=== PATIENT | male | born 2000 | race Caucasian/White ===

== ENCOUNTER 2018-12-31 11:11 | Inpatient (IN) | payer OTHER ==
[2018-12-31 13:38] VITALS: BMI 24.0
--- NOTE | 2018-12-31 14:09 | HP ---
COWS - Scale Resting Pulse: 0= [place] 80 or Below Sweatin= Chills/Flushing Restless Observation: 3= Extraneous Movement Pupil Size: 1= Pupils >than Normal Bone or Joint Aches: 2= Severe Diffuse Aches Runny Nose/ Eye Tearin= Runny Nose/Eyes GI Upset > 30mins: 2= Nausea/Diarrhea Tremor Observation: 2= Slight Tremor Visible Yawning Observation: 2= >3x During Session Anxiety or Irritability: 2=Irritable/Anxious Goose Flesh Skin: 0=Smooth Skin COWS Score: 17 CIWA Score Nausea/Vomitin Muscle Tremors: 2 Anxiety: 2 Agitation: 2 Paroxysmal Sweats: 1-Minimal Palms Moist Orientation: 0-Oriented Tacttile Disturbances: 1-Very Mild Itch/Numbness Auditory Disturbances: 1-Very Mild Visual Disturbances: 0-None Headache: 2-Mild CIWA-Ar Total Score: 13 - Admission Criteria [facility] Guidelines: Admission for Medically Managed Detox: Requires at least one of the followin. CIWA greater than 12 2. Seizures within the past 24 hours 3. Delirium tremens within the past 24 hours 4. Hallucinations within the past 24 hours 5. Acute intervention needed for co occurring medical disorder 6. Acute intervention needed for co occurring psychiatric disorder 7. Severe withdrawal that cannot be handled at a lower level of care (continued vomiting, continued diarrhea, abnormal vital signs) requiring intravenous medication and/or fluids 8. Admission ROS S - [facility] Chief Complaint: i need help to stop using heroin,percocet,alcohol,cocaine,marijuana Allergies/Adverse Reactions: Allergies Allergy/AdvReac Type Severity Reaction Status Date / Time No Known Allergies Allergy Verified 12/31/18 13:32 History of Present Illness: this 18 years old male with heroin,percocet,alcohol ,cocaine and marijuana dependence seeking detox, last detox [facility] 11/26 no significant period of sobriety plan for rehab this is the first admission to this facility weight loss Exam Limitations: No Limitations - Ebola screening Have you traveled outside of the country in the last 21 days: No Have you had contact with anyone from an Ebola affected area: No - Review of Systems Constitutional: Chills, Loss of Appetite, Malaise, Night Sweats, Changes in sleep, Weakness, Unintentional Wgt. Loss EENT: reports: Tearing, Nose Congestion Respiratory: reports: No Symptoms reported Cardiac: reports: No Symptoms Reported GI: reports: Diarrhea, Nausea, Vomiting, Abdominal cramping : reports: No Symptoms Reported Musculoskeletal: reports: Back Pain, Joint Pain, Muscle Pain, Joint Stiffness Integumentary: reports: Dryness Neuro: reports: Headache, Tremors Endocrine: reports: No Symptoms Reported Hematology: reports: No Symptoms Reported Psychiatric: reports: No Sypmtoms Reported, Judgement Intact, Mood/Affect Appropiate, Orientated x3, other Other Systems: Reviewed and Negative Patient History - Patient Medical History Hx Anemia: No Hx Asthma: No Hx Chronic Obstructive Pulmonary Disease (COPD): No Hx Cancer: No Hx Cardiac Disorders: No Hx Congestive Heart Failure: No Hx Hypertension: No Hx Hypercholesterolemia: No Hx Pacemaker: No HX Cerebrovascular Accident: No Hx Seizures: No Hx Dementia: No Hx Diabetes: No Hx Gastrointestinal Disorders: No Hx Liver Disease: No Hx Genitourinary Disorders: No Hx Sexually Transmitted Disorders: No Hx Renal Disease (ESRD): No Hx Thyroid Disease: No Hx Human Immunodeficiency Virus (HIV): No (last hiv 11/26 negative) Hx Hepatitis C: No Hx Depression: No Hx Suicide Attempt: No Hx Bipolar Disorder: No Hx Schizophrenia: No Other Medical History: no suicidal,no homicidal - Patient Surgical History Past Surgical History: Yes Other Surgical History: tosllectomy at age of 3 years - PPD History Previous Implant?: Yes Documented Results: Negative w/o proof Implanted On Prior [facility] Admission?: No PPD to be Administered?: Yes - Smoking Cessation Smoking history: Never smoked Have you smoked in the past 12 months: No Hx Chewing Tobacco Use: No - Substance & Tx. History Hx Alcohol Use: Yes Hx Substance Use: Yes Substance Use Type: Alcohol, Cocaine, Heroin, Marijuana Hx Substance Use Treatment: Yes ([facility] 11/26) - Substances abused Heroin Substance route: Injection Frequency: Daily Amount used: 1 bundle Age of first use: 17 Date of last use: 12/30/18 Other Other (specify): Percocet Substance route: Oral Frequency: Daily Amount used: 7 pills ( 10mg ) Age of first use: 15 Date of last use: 12/30/18 Alcohol Substance route: Oral Frequency: Daily Amount used: 1pint of janna/6 packs of 12 ozs of beer Age of first use: 10 Date of last use: 12/30/18 Cocaine Substance route: Injection Frequency: 1-3 times last 30 days Amount used: 100$ Age of first use: 15 Date of last use: 12/24/18 Marijuana/Hashish Substance route: Smoking Frequency: Daily Amount used: 20$ Age of first use: 11 Date of last use: 12/31/18 Family Disease History - Family Disease History Family Disease History: Heart Disease: Grandparent, Other: Father (anxiety,panic , alcohol) Admission Physical Exam [facility] - Vital Signs Vital Signs: Vital Signs - 24 hr 12/31/18 12/31/18 13:33 13:56 Temperature 98 F 98 F Pulse Rate 68 68 Respiratory 18 18 Rate Blood Pressure 82/56 L 82/56 L - Physical General Appearance: Yes: Moderate Distress, Tremorous, Irritable, Sweating, Anxious HEENTM: Yes: Normal ENT Inspection, LISA, Pharynx Normal Respiratory: Yes: Lungs Clear, Normal Breath Sounds, No Respiratory Distress Neck: Yes: Within Normal Limits, Supple, Trachea in good position Breast: Yes: Within Normal Limits Cardiology: Yes: Within Normal Limits, Regular Rhythm, Regular Rate, S1, S2 Abdominal: Yes: Within Normal Limits, Normal Bowel Sounds, Non Tender, Flat, Soft Genitourinary: Yes: Within Normal Limits Back: Yes: Muscle Spasm Musculoskeletal: Yes: full range of Motion, Back pain, Joint Stiffness, Muscle Pain Extremities: Yes: Within Normal Limits, Normal Range of Motion, Tremors Neurological: Yes: world designer II-XII NML intact, Alert, Motor Strength 5/5 Integumentary: Yes: Dry Lymphatic: Yes: Within Normal Limits - Diagnostic (1) Opioid dependence with withdrawal Current Visit: Yes Status: Acute (2) Alcohol dependence with uncomplicated withdrawal Current Visit: Yes Status: Acute (3) Cocaine dependence Current Visit: Yes Status: Acute (4) Cannabis abuse Current Visit: Yes Status: Acute (5) IVDU (intravenous drug user) Current Visit: Yes Status: Acute (6) Dehydration Current Visit: Yes Status: Acute (7) Weight loss Current Visit: Yes Status: Acute (8) Nicotine dependence Current Visit: Yes Status: Acute Cleared for Admission [facility] - Detox or Rehab [facility] Level of Care: Medically Managed Detox Regimen/Protocol: Methadone/Librium Breathalyzer - Breathalyzer Breathalyzer: 0 Urine Drug Screen - Test Device Lot number: [id number] Expiration date: 08/09/20 - Control Is test valid?: Yes - Results Drug screen NEGATIVE: No Urine drug screen results: THC-Marijuana, CHU-Cocaine, MOP-Opiates, OXY- Oxycodone, BZO-Benzodiazepines, BUP-Suboxone Inpatient Rehab Admission - Rehab Decision to Admit Inpatient rehab admission?: No
[2018-12-31] MEDS ORDERED: MENTHOL/PHENOL 1 EACH UD MM PRN (14:22)
[2018-12-31] MEDS ORDERED: MAGNESIUM HYDROX 2400MG/30ML ORAL SUSPENSION 30 ML CUP PO PRN (14:22)
[2018-12-31] MEDS ORDERED: IBUPROFEN 400 MG TABLET (FP) PO PRN (14:22)
[2018-12-31] MEDS ORDERED: ACETAMINOPHEN 325 MG TABLET (FP) PO PRN ×2 (14:22)
[2018-12-31] MEDS ORDERED: MAG HYDROX/AL HYDROX/SIMETH 30 ML UNIT-DOSE CUP PO PRN (14:22)
[2018-12-31] MEDS ORDERED: BISMUTH SUBSALICYLATE 262 MG/15 ML BTL PO PRN (14:22)
[2018-12-31] MEDS ORDERED: cloNIDine HCL 0.1 MG TABLET PO PRN (14:22)
[2018-12-31] MEDS ORDERED: MAGNESIUM CITRATE 300 ML BOTTLE PO PRN (14:22)
[2018-12-31] MEDS ORDERED: METHADONE HCL 10 MG TABLET (FOR DETOX USE ONLY) PO ONE ×2 (15:20→23:00)
[2018-12-31] MEDS: hydrOXYzine PAMOATE 25 MG CAPSULE (FP) PO PRN (15:32)
[2018-12-31] MEDS: NICOTINE 21 MG/24 HOURS TOPICAL PATCH TD SCH (15:33)
[2018-12-31] MEDS: THIAMINE HCL 100 MG TABLET (FP) PO SCH (21:59)
[2018-12-31 23:36] LABS: HEMATOCRIT 39.3 % (35.4-49); HEMOGLOBIN 13.3 GM/dL (11.7-16.9); MCH 27.3 pg (25.7-33.7); MCHC 33.8 g/dl (32.0-35.9); MEAN CELL VOLUME 80.8 fl (80-96); MEAN PLT VOLUME 9.9 fl (7.5-11.1); PLATELET COUNT 168 K/MM3 (134-434); RBC 4.87 M/mm3 (4.00-5.60); RDW 14.6 % (11.9-15.9); WHITE BLOOD COUNT 4.8 K/mm3 (4.0-10.0)
[2019-01-01 00:06] LABS: ALBUMIN 3.8 g/dl (3.4-5.0); ALK PHOS 85 U/L (45-117); ANION GAP 3 MMOL/L (8-16); BILIRUBIN,TOTAL 0.3 mg/dL (0.2-1); BLOOD UREA NITROGEN 16 mg/dL (7-18); CALCIUM 8.9 mg/dL (8.5-10.1); CHLORIDE 102 mmol/L (98-107); CO2 30 mmol/L (21-32); CREATININE 0.9 mg/dL (0.55-1.3); GLUCOSE,RANDOM 77 mg/dL (74-106); POTASSIUM 4.1 mmol/L (3.5-5.1); SGOT/AST 19 U/L (15-37); SGPT/ALT 20 U/L (13-61); SODIUM 135 mmol/L (136-145); TOT PROT 7.2 g/dl (6.4-8.2)
[2019-01-01] MEDS ORDERED: METHADONE HCL 10 MG TABLET (FOR DETOX USE ONLY) PO ONE (10:00)
[2019-01-01] MEDS: NICOTINE 21 MG/24 HOURS TOPICAL PATCH TD SCH (10:19)
[2019-01-01] MEDS: PRENATAL VITAMINS W/ FOLIC ACID TABLET (FP) PO SCH (10:19)
--- NOTE | 2019-01-01 10:31 | EKG ---
Test Reason : Blood Pressure : / mmHG Vent. Rate : 056 BPM Atrial Rate : 056 BPM P-R Int : 132 ms QRS Dur : 090 ms QT Int : 450 ms P-R-T Axes : 052 071 038 degrees QTc Int : 434 ms SINUS BRADYCARDIA WITH SINUS ARRHYTHMIA OTHERWISE NORMAL ECG NO PREVIOUS ECGS AVAILABLE Confirmed by MARTINE ASCENCIO, LUIS ([id number]) on 01/01/2019 10:31:26 AM Referred By: Confirmed By:LUIS FARLEY MD
--- NOTE | 2019-01-01 10:38 | PN ---
BHS COWS - Scale Resting Pulse: 0= [place] 80 or Below Sweatin= Chills/Flushing Restless Observation: 1= Difficult to Sit Still Pupil Size: 1= Pupils >than Normal Bone or Joint Aches: 2= Severe Diffuse Aches Runny Nose/ Eye Tearin= Nasal Congestion GI Upset > 30mins: 1= Stomach Cramp Tremor Observation of Outstretched Hands: 2= Slight Tremor Visible Yawning Observation: 1= 1-2x During Session Anxiety or Irritability: 2=Irritable/Anxious Goose Flesh Skin: 0=Smooth Skin COWS Score: 12 BHS Progress Note (SOAP) Subjective: patient using IV heroin acknowledge clean needle no sharing Objective: 01/01/19 10:37 Vital Signs Temperature 96.4 F L 01/01/19 09:30 Pulse Rate 56 L 01/01/19 09:30 Respiratory Rate 18 01/01/19 09:30 Blood Pressure 110/70 01/01/19 09:30 O2 Sat by Pulse Oximetry (%) Laboratory Last Values WBC 4.8 K/mm3 (4.0-10.0) 12/31/18 14:30 RBC 4.87 M/mm3 (4.00-5.60) 12/31/18 14:30 Hgb 13.3 GM/dL (11.7-16.9) 12/31/18 14:30 Hct 39.3 % (35.4-49) 12/31/18 14:30 MCV 80.8 fl (80-96) 12/31/18 14:30 MCH 27.3 pg (25.7-33.7) 12/31/18 14:30 MCHC 33.8 g/dl (32.0-35.9) 12/31/18 14:30 RDW 14.6 % (11.9-15.9) 12/31/18 14:30 Plt Count 168 K/MM3 (134-434) 12/31/18 14:30 MPV 9.9 fl (7.5-11.1) 12/31/18 14:30 Sickle Cell Screen Negative (NEGATIVE) 12/31/18 14:30 Sodium 135 mmol/L (136-145) L 12/31/18 14:30 Potassium 4.1 mmol/L (3.5-5.1) 12/31/18 14:30 Chloride 102 mmol/L (98-107) 12/31/18 14:30 Carbon Dioxide 30 mmol/L (21-32) 12/31/18 14:30 Anion Gap 3 MMOL/L (8-16) L 12/31/18 14:30 BUN 16 mg/dL (7-18) 12/31/18 14:30 Creatinine 0.9 mg/dL (0.55-1.3) 12/31/18 14:30 Creat Clearance w eGFR 107.58 (>60) 12/31/18 14:30 Random Glucose 77 mg/dL (74-106) 12/31/18 14:30 Calcium 8.9 mg/dL (8.5-10.1) 12/31/18 14:30 Total Bilirubin 0.3 mg/dL (0.2-1) 12/31/18 14:30 AST 19 U/L (15-37) 12/31/18 14:30 ALT 20 U/L (13-61) 12/31/18 14:30 Alkaline Phosphatase 85 U/L (45-117) 12/31/18 14:30 Total Protein 7.2 g/dl (6.4-8.2) 12/31/18 14:30 Albumin 3.8 g/dl (3.4-5.0) 12/31/18 14:30 lab noted Assessment: 01/01/19 10:37 opiate withdrawal sx Plan: continue detox
[2019-01-01] MEDS: NICOTINE POLACRILEX 2 MG GUM BUC PRN (12:50)
[2019-01-01 14:59] LABS: URINE APPEARANCE CLEAR; URINE BILIRUBIN NEGATIVE (NEGATIVE); URINE COLOR YELLOW; URINE GLUCOSE (UA) NEGATIVE (NEGATIVE); URINE KETONE NEGATIVE (NEGATIVE); URINE LEUK ESTERASE NEGATIVE (NEGATIVE); URINE NITRITE NEGATIVE (NEGATIVE); URINE PROTEIN NEGATIVE (NEGATIVE); URINE UROBILINOGEN 0.2 mg/dL (0.2-1.0)
[2019-01-01] MEDS: hydrOXYzine PAMOATE 25 MG CAPSULE (FP) PO PRN (17:23)
[2019-01-01] MEDS: THIAMINE HCL 100 MG TABLET (FP) PO SCH (22:06)
[2019-01-01] MEDS: MELATONIN 5 MG TABLETS PO PRN (22:07)
[2019-01-02] MEDS ORDERED: METHADONE HCL 10 MG TABLET (FOR DETOX USE ONLY) PO ONE (10:00)
[2019-01-02] MEDS: NICOTINE 21 MG/24 HOURS TOPICAL PATCH TD SCH (10:26)
[2019-01-02] MEDS: PRENATAL VITAMINS W/ FOLIC ACID TABLET (FP) PO SCH (10:27)
[2019-01-02] MEDS: METHOCARBAMOL 500 MG TABLET PO PRN (10:53)
[2019-01-02] MEDS: diazePAM 5 MG TABLET PO PRN ×2 (11:24→19:04)
--- NOTE | 2019-01-02 13:55 | PN ---
BHS COWS - Scale Resting Pulse: 0= [place] 80 or Below Sweatin= Chills/Flushing Restless Observation: 0= Sits Still Pupil Size: 0= Normal to Room Light Bone or Joint Aches: 1= Mild Discomfort Runny Nose/ Eye Tearin= Nasal Congestion GI Upset > 30mins: 1= Stomach Cramp Tremor Observation of Outstretched Hands: 2= Slight Tremor Visible Yawning Observation: 2= >3x During Session Anxiety or Irritability: 2=Irritable/Anxious Goose Flesh Skin: 0=Smooth Skin COWS Score: 10 S Progress Note (SOAP) Subjective: anxiousness wants valium as prn for methadone detox regimen discontinue clonidine prn begin valium prn Objective: 01/02/19 13:59 Vital Signs Temperature 97.6 F 01/02/19 09:53 Pulse Rate 66 01/02/19 09:53 Respiratory Rate 18 01/02/19 09:53 Blood Pressure 100/62 01/02/19 09:53 O2 Sat by Pulse Oximetry (%) Laboratory Last Values WBC 4.8 K/mm3 (4.0-10.0) 12/31/18 14:30 RBC 4.87 M/mm3 (4.00-5.60) 12/31/18 14:30 Hgb 13.3 GM/dL (11.7-16.9) 12/31/18 14:30 Hct 39.3 % (35.4-49) 12/31/18 14:30 MCV 80.8 fl (80-96) 12/31/18 14:30 MCH 27.3 pg (25.7-33.7) 12/31/18 14:30 MCHC 33.8 g/dl (32.0-35.9) 12/31/18 14:30 RDW 14.6 % (11.9-15.9) 12/31/18 14:30 Plt Count 168 K/MM3 (134-434) 12/31/18 14:30 MPV 9.9 fl (7.5-11.1) 12/31/18 14:30 Sickle Cell Screen Negative (NEGATIVE) 12/31/18 14:30 Sodium 135 mmol/L (136-145) L 12/31/18 14:30 Potassium 4.1 mmol/L (3.5-5.1) 12/31/18 14:30 Chloride 102 mmol/L (98-107) 12/31/18 14:30 Carbon Dioxide 30 mmol/L (21-32) 12/31/18 14:30 Anion Gap 3 MMOL/L (8-16) L 12/31/18 14:30 BUN 16 mg/dL (7-18) 12/31/18 14:30 Creatinine 0.9 mg/dL (0.55-1.3) 12/31/18 14:30 Creat Clearance w eGFR 107.58 (>60) 12/31/18 14:30 Random Glucose 77 mg/dL (74-106) 12/31/18 14:30 Calcium 8.9 mg/dL (8.5-10.1) 12/31/18 14:30 Total Bilirubin 0.3 mg/dL (0.2-1) 12/31/18 14:30 AST 19 U/L (15-37) 12/31/18 14:30 ALT 20 U/L (13-61) 12/31/18 14:30 Alkaline Phosphatase 85 U/L (45-117) 12/31/18 14:30 Total Protein 7.2 g/dl (6.4-8.2) 12/31/18 14:30 Albumin 3.8 g/dl (3.4-5.0) 12/31/18 14:30 Urine Color Yellow 01/01/19 12:00 Urine Appearance Clear 01/01/19 12:00 Urine pH 7.0 (5.0-8.0) 01/01/19 12:00 Ur Specific [place] 1.016 (1.010-1.035) 01/01/19 12:00 Urine Protein Negative (NEGATIVE) 01/01/19 12:00 Urine Glucose (UA) Negative (NEGATIVE) 01/01/19 12:00 Urine Ketones Negative (NEGATIVE) 01/01/19 12:00 Urine Blood Negative (NEGATIVE) 01/01/19 12:00 Urine Nitrite Negative (NEGATIVE) 01/01/19 12:00 Urine Bilirubin Negative (NEGATIVE) 01/01/19 12:00 Urine Urobilinogen 0.2 mg/dL (0.2-1.0) 01/01/19 12:00 Ur Leukocyte Esterase Negative (NEGATIVE) 01/01/19 12:00 RPR Titer Nonreactive (NONREACTIVE) 12/31/18 14:30 HIV 1&2 Antibody Screen Negative 12/31/18 14:30 HIV P24 Antigen Negative 12/31/18 14:30 lab noted Assessment: 01/02/19 13:59 withdrawal sx Plan: continue detox
[2019-01-02] MEDS: NICOTINE POLACRILEX 2 MG GUM BUC PRN (14:41)
[2019-01-02] MEDS: THIAMINE HCL 100 MG TABLET (FP) PO SCH (22:02)
[2019-01-02] MEDS: MELATONIN 5 MG TABLETS PO PRN (22:03)
[2019-01-03] MEDS ORDERED: METHADONE (DETOX) 10 MG, METHADONE (DETOX) 5 MG PO ONE (10:00)
[2019-01-03] MEDS ORDERED: METHADONE HCL 10 MG TABLET (FOR DETOX USE ONLY) PO ONE (10:00)
[2019-01-03] MEDS ORDERED: METHADONE HCL 10 MG TABLET (FOR DETOX USE ONLY) ONE (10:03)
[2019-01-03] MEDS ORDERED: METHADONE HCL 5 MG TABLET (FOR DETOX USE ONLY) ONE (10:04)
[2019-01-03] MEDS: METHOCARBAMOL 500 MG TABLET PO PRN (10:44)
[2019-01-03] MEDS: hydrOXYzine PAMOATE 25 MG CAPSULE (FP) PO PRN (10:44)
[2019-01-03] MEDS: NICOTINE 21 MG/24 HOURS TOPICAL PATCH TD SCH (10:45)
[2019-01-03] MEDS: PRENATAL VITAMINS W/ FOLIC ACID TABLET (FP) PO SCH (10:45)
[2019-01-03] MEDS ORDERED: chlordiazePOXIDE HCL 10 MG CAPSULE PO PRN (11:03)
[2019-01-03] MEDS ORDERED: chlordiazePOXIDE HCL 25 MG CAPSULE PO SCH (11:03)
[2019-01-03] MEDS ORDERED: chlordiazePOXIDE HCL 10 MG CAPSULE PO SCH (11:15)
--- NOTE | 2019-01-03 16:27 | PN ---
BHS COWS - Scale Resting Pulse: 0= [place] 80 or Below Sweatin= Chills/Flushing Restless Observation: 1= Difficult to Sit Still Pupil Size: 0= Normal to Room Light Bone or Joint Aches: 2= Severe Diffuse Aches Runny Nose/ Eye Tearin= None GI Upset > 30mins: 0= None Tremor Observation of Outstretched Hands: 0= None Yawning Observation: 1= 1-2x During Session Anxiety or Irritability: 4=Extreme Anxiety Goose Flesh Skin: 3=Piloerection COWS Score: 12 BHS Progress Note (SOAP) Subjective: Anxious (Severe), Interrupted Sleep, Body Aches. Objective: PATIENT A & O X 3, OBSERVED AMBULATING ON UNIT UNASSISTED. IN NO ACUTE DISTRESS. 01/03/19 16:23 Assessment: 01/03/19 16:24 WITHDRAWAL SYMPTOMS. Plan: CONTINUE DETOX. PRN ROBAXIN PO RECOMMENDED FOR BODY ACHES. PATIENT REPORTS SEVERE ANXIETY DUE TO WITHDRAWAL - X 1 DOSE OF VALIUM (10 MG PO ) ORDERED FOR 1700. PATIENT MADE AWARE THAT NO FURTHER DOSES OF VALIUM WILL BE ORDERED FOR HIM DURING THIS DETOX ADMISSION. PATIENT VERBALIZED UNDERSTANDING.
[2019-01-03] MEDS ORDERED: diazePAM 5 MG TABLET PO ONE (17:00)
[2019-01-03] MEDS ORDERED: chlordiazePOXIDE 5 MG CAPSULE PO SCH (17:00)
[2019-01-03] MEDS: NICOTINE POLACRILEX 2 MG GUM BUC PRN (19:14)
[2019-01-03] MEDS: THIAMINE HCL 100 MG TABLET (FP) PO SCH (22:25)
[2019-01-03] MEDS: MELATONIN 5 MG TABLETS PO PRN (22:26)
[2019-01-04] MEDS ORDERED: METHADONE HCL 5 MG TABLET (FOR DETOX USE ONLY) PO ONE (06:00)
[2019-01-04] MEDS ORDERED: METHADONE HCL 10 MG TABLET (FOR DETOX USE ONLY) PO ONE (10:00)
[2019-01-04] MEDS: PRENATAL VITAMINS W/ FOLIC ACID TABLET (FP) PO SCH (10:27)
[2019-01-04] MEDS: NICOTINE 21 MG/24 HOURS TOPICAL PATCH TD SCH (10:27)
[2019-01-04] MEDS: NICOTINE POLACRILEX 2 MG GUM BUC PRN (13:34)
--- NOTE | 2019-01-04 16:07 | PN ---
BHS COWS - Scale Resting Pulse: 0= [place] 80 or Below Sweatin= Chills/Flushing Restless Observation: 1= Difficult to Sit Still Pupil Size: 0= Normal to Room Light Bone or Joint Aches: 2= Severe Diffuse Aches Runny Nose/ Eye Tearin= None GI Upset > 30mins: 0= None Tremor Observation of Outstretched Hands: 0= None Yawning Observation: 1= 1-2x During Session Anxiety or Irritability: 2=Irritable/Anxious Goose Flesh Skin: 0=Smooth Skin COWS Score: 7 BHS Progress Note (SOAP) Subjective: Anxious, Interrupted sleep, Body Aches. Objective: PATIENT A & O X 3, OBSERVED AMBULATING ON UNIT UNASSISTED. IN NO ACUTE DISTRESS. 01/04/19 16:05 Vital Signs Temperature 98.6 F 01/04/19 14:05 Pulse Rate 70 01/04/19 14:05 Respiratory Rate 18 01/04/19 14:05 Blood Pressure 120/70 01/04/19 14:05 O2 Sat by Pulse Oximetry (%) Laboratory Tests 12/31/18 12/31/18 12/31/18 14:30 14:30 14:30 WBC 4.8 RBC 4.87 Hgb 13.3 Hct 39.3 MCV 80.8 MCH 27.3 MCHC 33.8 RDW 14.6 Plt Count 168 MPV 9.9 Sickle Cell Screen Sodium 135 L Potassium 4.1 Chloride 102 Carbon Dioxide 30 Anion Gap 3 L BUN 16 Creatinine 0.9 Creat Clearance w eGFR 107.58 Random Glucose 77 Calcium 8.9 Total Bilirubin 0.3 AST 19 ALT 20 Alkaline Phosphatase 85 Total Protein 7.2 Albumin 3.8 Urine Color Urine Appearance Urine pH Ur Specific [place] Urine Protein Urine Glucose (UA) Urine Ketones Urine Blood Urine Nitrite Urine Bilirubin Urine Urobilinogen Ur Leukocyte Esterase RPR Titer Nonreactive HIV 1&2 Antibody Screen HIV P24 Antigen 12/31/18 12/31/18 01/01/19 14:30 14:30 12:00 WBC RBC Hgb Hct MCV MCH MCHC RDW Plt Count MPV Sickle Cell Screen Negative Sodium Potassium Chloride Carbon Dioxide Anion Gap BUN Creatinine Creat Clearance w eGFR Random Glucose Calcium Total Bilirubin AST ALT Alkaline Phosphatase Total Protein Albumin Urine Color Yellow Urine Appearance Clear Urine pH 7.0 Ur Specific [place] 1.016 Urine Protein Negative Urine Glucose (UA) Negative Urine Ketones Negative Urine Blood Negative Urine Nitrite Negative Urine Bilirubin Negative Urine Urobilinogen 0.2 Ur Leukocyte Esterase Negative RPR Titer HIV 1&2 Antibody Screen Negative HIV P24 Antigen Negative LABS NOTED. Assessment: 01/04/19 16:05 WITHDRAWAL SYMPTOMS. Plan: CONTINUE DETOX. PATIENT SCHEDULED FOR D/C TOMORROW AM.
[2019-01-04] MEDS: THIAMINE HCL 100 MG TABLET (FP) PO SCH (22:01)
[2019-01-04] MEDS: hydrOXYzine PAMOATE 25 MG CAPSULE (FP) PO PRN (22:02)
[2019-01-05] MEDS ORDERED: METHADONE HCL 5 MG TABLET (FOR DETOX USE ONLY) PO ONE (06:00)
[2019-01-05 06:27] VITALS: BP 97/60; PULSE 55; TEMP 97.4
[2019-01-05] MEDS ORDERED: METHADONE HCL 10 MG TABLET (FOR DETOX USE ONLY) PO ONE (08:37)
--- NOTE | 2019-01-05 08:42 | DS ---
[facility] Detox Discharge Summary Admission Date: 12/31/18 Discharge Date: 01/05/19 - History Present History: Alcohol Dependence, Opioid Dependence Additional Comments: 18 years old male admitted on 12/31/18 for alcohol and opiate withdrawal stabilization completed detox regimen patient refuses 6am methadone 5 mg today patient demands to have his methadone 5 mg before leaving the detox unit order one dose methadone 5 mg now alert no acute distress Pertinent Past History: bring in medication list and lab report to aftercare appointment [facility] - Physical Exam Results Vital Signs: Vital Signs Temperature 97.4 F L 01/05/19 06:26 Pulse Rate 55 L 01/05/19 06:26 Respiratory Rate 18 01/05/19 06:30 Blood Pressure 97/60 01/05/19 06:26 O2 Sat by Pulse Oximetry (%) Pertinent Admission Physical Exam Findings: alcohol and opiate withdrawal sx Laboratory Last Values WBC 4.8 K/mm3 (4.0-10.0) 12/31/18 14:30 RBC 4.87 M/mm3 (4.00-5.60) 12/31/18 14:30 Hgb 13.3 GM/dL (11.7-16.9) 12/31/18 14:30 Hct 39.3 % (35.4-49) 12/31/18 14:30 MCV 80.8 fl (80-96) 12/31/18 14:30 MCH 27.3 pg (25.7-33.7) 12/31/18 14:30 MCHC 33.8 g/dl (32.0-35.9) 12/31/18 14:30 RDW 14.6 % (11.9-15.9) 12/31/18 14:30 Plt Count 168 K/MM3 (134-434) 12/31/18 14:30 MPV 9.9 fl (7.5-11.1) 12/31/18 14:30 Sickle Cell Screen Negative (NEGATIVE) 12/31/18 14:30 Sodium 135 mmol/L (136-145) L 12/31/18 14:30 Potassium 4.1 mmol/L (3.5-5.1) 12/31/18 14:30 Chloride 102 mmol/L (98-107) 12/31/18 14:30 Carbon Dioxide 30 mmol/L (21-32) 12/31/18 14:30 Anion Gap 3 MMOL/L (8-16) L 12/31/18 14:30 BUN 16 mg/dL (7-18) 12/31/18 14:30 Creatinine 0.9 mg/dL (0.55-1.3) 12/31/18 14:30 Creat Clearance w eGFR 107.58 (>60) 12/31/18 14:30 Random Glucose 77 mg/dL (74-106) 12/31/18 14:30 Calcium 8.9 mg/dL (8.5-10.1) 12/31/18 14:30 Total Bilirubin 0.3 mg/dL (0.2-1) 12/31/18 14:30 AST 19 U/L (15-37) 12/31/18 14:30 ALT 20 U/L (13-61) 12/31/18 14:30 Alkaline Phosphatase 85 U/L (45-117) 12/31/18 14:30 Total Protein 7.2 g/dl (6.4-8.2) 12/31/18 14:30 Albumin 3.8 g/dl (3.4-5.0) 12/31/18 14:30 Urine Color Yellow 01/01/19 12:00 Urine Appearance Clear 01/01/19 12:00 Urine pH 7.0 (5.0-8.0) 01/01/19 12:00 Ur Specific [place] 1.016 (1.010-1.035) 01/01/19 12:00 Urine Protein Negative (NEGATIVE) 01/01/19 12:00 Urine Glucose (UA) Negative (NEGATIVE) 01/01/19 12:00 Urine Ketones Negative (NEGATIVE) 01/01/19 12:00 Urine Blood Negative (NEGATIVE) 01/01/19 12:00 Urine Nitrite Negative (NEGATIVE) 01/01/19 12:00 Urine Bilirubin Negative (NEGATIVE) 01/01/19 12:00 Urine Urobilinogen 0.2 mg/dL (0.2-1.0) 01/01/19 12:00 Ur Leukocyte Esterase Negative (NEGATIVE) 01/01/19 12:00 RPR Titer Nonreactive (NONREACTIVE) 12/31/18 14:30 HIV 1&2 Antibody Screen Negative 12/31/18 14:30 HIV P24 Antigen Negative 12/31/18 14:30 lab noted - Treatment Hospital Course: Detox Protocol Followed, Detoxed Safely, Responded well, Discharged Condition Good, Rehab Referral Accepted Patient has Accepted a Rehab Referral to: [facility] - Medication Discharge Medications: Ambulatory Orders NK [No Known Home Medication] 10/17/18 - Diagnosis (1) Alcohol dependence with uncomplicated withdrawal Status: Acute (2) Nicotine dependence Status: Acute Qualifiers: Nicotine product type: cigarettes Substance use status: in withdrawal Qualified Code(s): F17.213 - Nicotine dependence, cigarettes, with withdrawal (3) Opioid dependence with withdrawal Status: Acute (4) Weight loss Status: Acute - AMA Did Patient Leave Against Medical Advice: No
[2019-01-05] MEDS ORDERED: chlordiazePOXIDE HCL 10 MG CAPSULE PO PRN (13:00)
== END 2019-01-05 09:00 | disposition home or self-care (01) | DRG 773 ==
LOC: YASAS 11:11 → Y3N 14:51
PROVIDERS: ADMIT Surgery; ATTEND Surgery
PROC: HZ2ZZZZ Detoxification Services for Substance Abuse Treatment (ICD-10-PCS; principal; 2018-12-31)
DX: F10.230 Alcohol dependence with withdrawal, uncomplicated (principal); F11.23 Opioid dependence with withdrawal; F14.20 Cocaine dependence, uncomplicated; F12.20 Cannabis dependence, uncomplicated; F17.213 Nicotine dependence, cigarettes, with withdrawal; E86.0 Dehydration; R63.4 Abnormal weight loss; Z68.24 Body mass index [BMI] 24.0-24.9, adult
CPT/HCPCS: 36415; 80053; 81003; 85027; 85660; 86593; 87389; 93005; 93010

== ENCOUNTER 2019-04-20 10:40 | Inpatient (IN) | payer OTHER | END 2019-04-24 13:18 | disposition home or self-care (01) | LOC: YASAS 10:40 → Y3N 15:51 ==

== ENCOUNTER 2019-06-29 11:40 | Inpatient (IN) | payer OTHER ==
[2019-06-29 11:54] VITALS: BMI 27.4
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
[2019-06-29] MEDS ORDERED: MAG HYDROX/AL HYDROX/SIMETH 30 ML UNIT-DOSE CUP PO PRN (13:28)
[2019-06-29] MEDS ORDERED: ACETAMINOPHEN 325 MG TABLET (FP) PO PRN ×2 (13:28)
[2019-06-29] MEDS ORDERED: MAGNESIUM HYDROX 2400MG/30ML ORAL SUSPENSION 30 ML CUP PO PRN (13:28)
[2019-06-29] MEDS ORDERED: ONDANSETRON *ODT* 4 MG TABLET SL PRN (13:28)
[2019-06-29] MEDS ORDERED: MENTHOL/PHENOL 1 EACH UD MM PRN (13:28)
[2019-06-29] MEDS ORDERED: BISMUTH SUBSALICYLATE 524 MG/30 ML UD PO PRN (13:28)
[2019-06-29] MEDS ORDERED: hydrOXYzine PAMOATE 25 MG CAPSULE (FP) PO PRN (13:28)
[2019-06-29] MEDS ORDERED: MAGNESIUM CITRATE 300 ML BOTTLE PO PRN (13:28)
[2019-06-29] MEDS ORDERED: diazePAM 5 MG TABLET PO ONE (13:33)
[2019-06-29] MEDS ORDERED: METHADONE HCL 10 MG TABLET (FOR DETOX USE ONLY) PO ONE (14:30)
[2019-06-29] MEDS: diazePAM 5 MG TABLET PO SCH ×2 (15:31→21:16)
[2019-06-29] MEDS: IBUPROFEN 400 MG TABLET (FP) PO PRN ×2 (15:33→21:18)
[2019-06-29] MEDS: METHOCARBAMOL 500 MG TABLET PO PRN (16:53)
[2019-06-29] MEDS ORDERED: NICOTINE POLACRILEX 2 MG GUM BUC PRN (18:10)
[2019-06-29] MEDS: NICOTINE 21 MG/24 HOURS TOPICAL PATCH TD SCH (18:43)
[2019-06-29] MEDS: THIAMINE HCL 100 MG TABLET (FP) PO SCH (21:16)
[2019-06-29] MEDS: MELATONIN 5 MG TABLETS PO PRN (21:16)
[2019-06-30] MEDS: diazePAM 5 MG TABLET PO SCH ×3 (06:00→22:04)
[2019-06-30] MEDS: IBUPROFEN 400 MG TABLET (FP) PO PRN (06:07)
[2019-06-30] MEDS ORDERED: METHADONE HCL 5 MG TABLET (FOR DETOX USE ONLY) ONE (09:18)
[2019-06-30] MEDS ORDERED: METHADONE HCL 10 MG TABLET (FOR DETOX USE ONLY) ONE (09:18)
[2019-06-30 10:00] LABS: HEMATOCRIT 35.7 % (35.4-49); HEMOGLOBIN 11.9 GM/dL (11.7-16.9); MCH 25.3 pg (25.7-33.7); MCHC 33.3 g/dl (32.0-35.9); MEAN CELL VOLUME 76.1 fl (80-96); MEAN PLT VOLUME 9.3 fl (7.5-11.1); PLATELET COUNT 199 K/MM3 (134-434); RBC 4.69 M/mm3 (4.00-5.60); RDW 15.8 % (11.9-15.9); WHITE BLOOD COUNT 6.1 K/mm3 (4.0-10.0)
[2019-06-30] MEDS ORDERED: METHADONE (DETOX) 20 MG, METHADONE (DETOX) 5 MG PO ONE (10:00)
[2019-06-30 10:01] LABS: ALBUMIN 3.4 g/dl (3.4-5.0); BILIRUBIN,TOTAL 0.7 mg/dL (0.2-1); BLOOD UREA NITROGEN 17.3 mg/dL (7-18); CALCIUM 8.7 mg/dL (8.5-10.1); CREATININE 0.9 mg/dL (0.55-1.3); POTASSIUM 4.1 mmol/L (3.5-5.1); TOT PROT 6.7 g/dl (6.4-8.2)
[2019-06-30] MEDS: NICOTINE 21 MG/24 HOURS TOPICAL PATCH TD SCH (10:25)
[2019-06-30] MEDS: PRENATAL VITAMINS W/ FOLIC ACID TABLET (FP) PO SCH (10:25)
[2019-06-30] MEDS: diazePAM 5 MG TABLET PO PRN ×2 (10:27→18:09)
[2019-06-30] MEDS: SULFAMETHOXAZOLE/TRIMETHOPRIM 800MG/160MG D.S. TABLET PO SCH ×2 (10:36→22:04)
[2019-06-30] MEDS ORDERED: FLU VACCINE QUAD 60 MCG/0.5 ML (MDV 19-20) IM ONE (10:45)
--- NOTE | 2019-06-30 11:12 | PN ---
[facility] CIWA - CIWA Score Nausea/Vomitin-Mild Nausea/No Vomiting Muscle Tremors: 2 Anxiety: 2 Agitation: 2 Paroxysmal Sweats: No Perspiration Orientation: 0-Oriented Tacttile Disturbances: 1-Very Mild Itch/Numbness Auditory Disturbances: 0-None Visual Disturbances: 0-None Headache: 1-Very Mild CIWA-Ar Total Score: 9 [facility] COWS - Scale Resting Pulse: 0= [place] 80 or Below Sweatin= Chills/Flushing Restless Observation: 1= Difficult to Sit Still Pupil Size: 1= Pupils >than Normal Bone or Joint Aches: 1= Mild Discomfort Runny Nose/ Eye Tearin= Nasal Congestion GI Upset > 30mins: 1= Stomach Cramp Tremor Observation of Outstretched Hands: 1= Tremor [place], Not Seen Yawning Observation: 1= 1-2x During Session Anxiety or Irritability: 1=Feels Anxious/Irritable Goose Flesh Skin: 0=Smooth Skin COWS Score: 9 [facility] Progress Note (SOAP) Subjective: alert,irritable,anxious,interrupted sleep,pain in the body and back,redness in forearm multiple sites both at site of iv injection Objective: 06/30/19 11:12 Vital Signs Temperature 96.3 F L 06/30/19 06:46 Pulse Rate 62 06/30/19 09:31 Respiratory Rate 18 06/30/19 09:31 Blood Pressure 113/56 L 06/30/19 09:31 O2 Sat by Pulse Oximetry (%) Laboratory Last Values WBC 6.1 K/mm3 (4.0-10.0) 06/30/19 08:00 RBC 4.69 M/mm3 (4.00-5.60) 06/30/19 08:00 Hgb 11.9 GM/dL (11.7-16.9) 06/30/19 08:00 Hct 35.7 % (35.4-49) 06/30/19 08:00 MCV 76.1 fl (80-96) L 06/30/19 08:00 MCH 25.3 pg (25.7-33.7) L 06/30/19 08:00 MCHC 33.3 g/dl (32.0-35.9) 06/30/19 08:00 RDW 15.8 % (11.9-15.9) 06/30/19 08:00 Plt Count 199 K/MM3 (134-434) D 06/30/19 08:00 MPV 9.3 fl (7.5-11.1) 06/30/19 08:00 Sodium 140 mmol/L (136-145) 06/30/19 08:00 Potassium 4.1 mmol/L (3.5-5.1) 06/30/19 08:00 Chloride 105 mmol/L (98-107) 06/30/19 08:00 Carbon Dioxide 28 mmol/L (21-32) 06/30/19 08:00 Anion Gap 7 MMOL/L (8-16) L 06/30/19 08:00 BUN 17.3 mg/dL (7-18) 06/30/19 08:00 Creatinine 0.9 mg/dL (0.55-1.3) 06/30/19 08:00 Est GFR (CKD-EPI)AfAm 142.00 06/30/19 08:00 Est GFR (CKD-EPI)NonAf 122.52 06/30/19 08:00 Random Glucose 82 mg/dL (74-106) 06/30/19 08:00 Calcium 8.7 mg/dL (8.5-10.1) 06/30/19 08:00 Total Bilirubin 0.7 mg/dL (0.2-1) 06/30/19 08:00 AST 77 U/L (15-37) H 06/30/19 08:00 ALT 190 U/L (13-61) H 06/30/19 08:00 Alkaline Phosphatase 113 U/L (45-117) 06/30/19 08:00 Total Protein 6.7 g/dl (6.4-8.2) 06/30/19 08:00 Albumin 3.4 g/dl (3.4-5.0) 06/30/19 08:00 RPR Titer Nonreactive (NONREACTIVE) 06/30/19 08:00 HIV 1&2 Antibody Screen Negative 06/30/19 08:00 HIV P24 Antigen Negative 06/30/19 08:00 Assessment: 06/30/19 11:16 withdrawal symptom Plan: continued detox methadone and valium regimen,on bactrim ds 1 tab po bid for cellulitis both forearm for 7 days
[2019-06-30] MEDS: cloNIDine HCL 0.1 MG TABLET PO PRN (18:15)
[2019-06-30] MEDS: THIAMINE HCL 100 MG TABLET (FP) PO SCH (22:04)
[2019-06-30] MEDS: MELATONIN 5 MG TABLETS PO PRN (22:05)
[2019-07-01] MEDS: diazePAM 5 MG TABLET PO SCH ×2 (05:32→17:16)
[2019-07-01] MEDS ORDERED: METHADONE HCL 10 MG TABLET (FOR DETOX USE ONLY) PO ONE (10:00)
[2019-07-01] MEDS: cloNIDine HCL 0.1 MG TABLET PO PRN (10:12)
[2019-07-01] MEDS: PRENATAL VITAMINS W/ FOLIC ACID TABLET (FP) PO SCH (10:12)
[2019-07-01] MEDS: NICOTINE 21 MG/24 HOURS TOPICAL PATCH TD SCH (10:12)
[2019-07-01] MEDS: SULFAMETHOXAZOLE/TRIMETHOPRIM 800MG/160MG D.S. TABLET PO SCH ×2 (10:12→21:43)
[2019-07-01] MEDS: IBUPROFEN 400 MG TABLET (FP) PO PRN (10:14)
[2019-07-01] MEDS: diazePAM 5 MG TABLET PO PRN ×2 (10:16→21:48)
--- NOTE | 2019-07-01 10:25 | PN ---
[facility] CIWA - CIWA Score Nausea/Vomitin-No Nausea/No Vomiting Muscle Tremors: 2 Anxiety: 2 Agitation: 2 Paroxysmal Sweats: No Perspiration Orientation: 0-Oriented Tacttile Disturbances: 1-Very Mild Itch/Numbness Auditory Disturbances: 0-None Visual Disturbances: 0-None Headache: 1-Very Mild CIWA-Ar Total Score: 8 [facility] COWS - Scale Resting Pulse: 0= [place] 80 or Below Sweatin= No chills or Flushing Restless Observation: 1= Difficult to Sit Still Pupil Size: 1= Pupils >than Normal Bone or Joint Aches: 1= Mild Discomfort Runny Nose/ Eye Tearin= Nasal Congestion GI Upset > 30mins: 1= Stomach Cramp Tremor Observation of Outstretched Hands: 1= Tremor [place], Not Seen Yawning Observation: 1= 1-2x During Session Anxiety or Irritability: 2=Irritable/Anxious Goose Flesh Skin: 0=Smooth Skin COWS Score: 9 [facility] Progress Note (SOAP) Subjective: alert,irritable,anxious,interrupted sleep,pain in the body Objective: 07/01/19 10:24 Vital Signs Temperature 97 F L 07/01/19 09:32 Pulse Rate 77 07/01/19 09:32 Respiratory Rate 18 07/01/19 09:32 Blood Pressure 124/61 07/01/19 09:32 O2 Sat by Pulse Oximetry (%) Assessment: 07/01/19 10:25 withdrawal symptom Plan: continue detox,methadone and valium regimen
[2019-07-01] MEDS: METHOCARBAMOL 500 MG TABLET PO PRN (17:20)
[2019-07-01] MEDS: THIAMINE HCL 100 MG TABLET (FP) PO SCH (21:43)
[2019-07-01] MEDS: MELATONIN 5 MG TABLETS PO PRN (21:43)
[2019-07-02] MEDS ORDERED: diazePAM 5 MG TABLET PO ONE (06:00)
[2019-07-02 09:07] VITALS: BP 111/62; PULSE 68; TEMP 98.2
[2019-07-02] MEDS ORDERED: METHADONE HCL 5 MG TABLET (FOR DETOX USE ONLY) ONE (09:42)
[2019-07-02] MEDS ORDERED: METHADONE HCL 10 MG TABLET (FOR DETOX USE ONLY) ONE (09:43)
[2019-07-02] MEDS ORDERED: METHADONE (DETOX) 10 MG, METHADONE (DETOX) 5 MG PO ONE (10:00)
[2019-07-02] MEDS: SULFAMETHOXAZOLE/TRIMETHOPRIM 800MG/160MG D.S. TABLET PO SCH (10:36)
[2019-07-02] MEDS: PRENATAL VITAMINS W/ FOLIC ACID TABLET (FP) PO SCH (10:36)
[2019-07-02] MEDS: NICOTINE 21 MG/24 HOURS TOPICAL PATCH TD SCH (10:37)
[2019-07-02] MEDS: diazePAM 5 MG TABLET PO PRN (10:40)
--- NOTE | 2019-07-02 11:06 | PN ---
[facility] Progress Note Note: condition 10 called,securities present on the unit,patient is threatening the staff, discharged ama,high risk of relapsing explained,patient understood, nursing stationary engineer supervisor present and Tess Calderon present and counselor,all agreed for patient discharge AMA, patient escorted off the unit by securities
--- NOTE | 2019-07-02 11:10 | DS ---
[facility] Detox Discharge Summary Admission Date: 06/29/19 Discharge Date: 07/02/19 - History Present History: Alcohol Dependence, Cocaine Dependence, Opioid Dependence Additional Comments: patient left AMA,advise to call 911 if not feeling well Pertinent Past History: ivdu cellulitis of forearm - Physical Exam Results Vital Signs: Vital Signs Temperature 98.2 F 07/02/19 09:06 Pulse Rate 68 07/02/19 09:06 Respiratory Rate 18 07/02/19 09:06 Blood Pressure 111/62 07/02/19 09:06 O2 Sat by Pulse Oximetry (%) Pertinent Admission Physical Exam Findings: withdrawal signs and symptom Vital Signs Temperature 98.2 F 07/02/19 09:06 Pulse Rate 68 07/02/19 09:06 Respiratory Rate 18 07/02/19 09:06 Blood Pressure 111/62 07/02/19 09:06 O2 Sat by Pulse Oximetry (%) Laboratory Last Values WBC 6.1 K/mm3 (4.0-10.0) 06/30/19 08:00 RBC 4.69 M/mm3 (4.00-5.60) 06/30/19 08:00 Hgb 11.9 GM/dL (11.7-16.9) 06/30/19 08:00 Hct 35.7 % (35.4-49) 06/30/19 08:00 MCV 76.1 fl (80-96) L 06/30/19 08:00 MCH 25.3 pg (25.7-33.7) L 06/30/19 08:00 MCHC 33.3 g/dl (32.0-35.9) 06/30/19 08:00 RDW 15.8 % (11.9-15.9) 06/30/19 08:00 Plt Count 199 K/MM3 (134-434) D 06/30/19 08:00 MPV 9.3 fl (7.5-11.1) 06/30/19 08:00 Sodium 140 mmol/L (136-145) 06/30/19 08:00 Potassium 4.1 mmol/L (3.5-5.1) 06/30/19 08:00 Chloride 105 mmol/L (98-107) 06/30/19 08:00 Carbon Dioxide 28 mmol/L (21-32) 06/30/19 08:00 Anion Gap 7 MMOL/L (8-16) L 06/30/19 08:00 BUN 17.3 mg/dL (7-18) 06/30/19 08:00 Creatinine 0.9 mg/dL (0.55-1.3) 06/30/19 08:00 Est GFR (CKD-EPI)AfAm 142.00 06/30/19 08:00 Est GFR (CKD-EPI)NonAf 122.52 06/30/19 08:00 Random Glucose 82 mg/dL (74-106) 06/30/19 08:00 Calcium 8.7 mg/dL (8.5-10.1) 06/30/19 08:00 Total Bilirubin 0.7 mg/dL (0.2-1) 06/30/19 08:00 AST 77 U/L (15-37) H 06/30/19 08:00 ALT 190 U/L (13-61) H 06/30/19 08:00 Alkaline Phosphatase 113 U/L (45-117) 06/30/19 08:00 Total Protein 6.7 g/dl (6.4-8.2) 06/30/19 08:00 Albumin 3.4 g/dl (3.4-5.0) 06/30/19 08:00 RPR Titer Nonreactive (NONREACTIVE) 06/30/19 08:00 HIV 1&2 Antibody Screen Negative 06/30/19 08:00 HIV P24 Antigen Negative 06/30/19 08:00 - Medication Discharge Medications: Ambulatory Orders NK [No Known Home Medication] 06/29/19 - Diagnosis (1) Alcohol dependence with uncomplicated withdrawal Current Visit: No Status: Acute (2) Cellulitis Current Visit: No Status: Acute Qualifiers: Site of cellulitis: extremity Site of cellulitis of extremity: upper extremity Laterality: unspecified laterality Qualified Code(s): L03.119 - Cellulitis of unspecified part of limb (3) Opioid dependence with withdrawal Current Visit: No Status: Acute (4) Weight loss Current Visit: No Status: Acute (5) Nicotine dependence Current Visit: No Status: Chronic Qualifiers: Nicotine product type: cigarettes Substance use status: in withdrawal Qualified Code(s): F17.213 - Nicotine dependence, cigarettes, with withdrawal - AMA Did Patient Leave Against Medical Advice: Yes
[2019-07-03] MEDS ORDERED: METHADONE HCL 10 MG TABLET (FOR DETOX USE ONLY) PO ONE (10:00)
[2019-07-04] MEDS ORDERED: METHADONE HCL 5 MG TABLET (FOR DETOX USE ONLY) PO ONE (06:00)
== END 2019-07-02 10:45 | disposition left against medical advice (07) | DRG 770 ==
LOC: YASAS 11:40 → Y6N 13:51
PROVIDERS: ADMIT Allergy & Immunology; ATTEND Allergy & Immunology
PROC: HZ2ZZZZ Detoxification Services for Substance Abuse Treatment (ICD-10-PCS; principal; 2019-06-29)
DX: F11.23 Opioid dependence with withdrawal (principal); F10.230 Alcohol dependence with withdrawal, uncomplicated; F17.213 Nicotine dependence, cigarettes, with withdrawal; L03.119 Cellulitis of unspecified part of limb; R63.4 Abnormal weight loss; Z88.8 Allergy status to other drugs, medicaments and biological substances; Z59.0 Homelessness
CPT/HCPCS: 36415; 80053; 85027; 86593; 87389; J0735; Q2036

== ENCOUNTER 2019-08-13 14:40 | Inpatient (IN) | payer OTHER ==
[2019-08-13 16:10] VITALS: BMI 24.7
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
[2019-08-13] MEDS ORDERED: MAG HYDROX/AL HYDROX/SIMETH 30 ML UNIT-DOSE CUP PO PRN (17:35)
[2019-08-13] MEDS ORDERED: ACETAMINOPHEN 325 MG TABLET (FP) PO PRN (17:35)
[2019-08-13] MEDS ORDERED: clonazePAM 0.5 MG TABLET PO PRN (17:35)
[2019-08-13] MEDS ORDERED: NICOTINE POLACRILEX 2 MG GUM BUC PRN (17:35)
[2019-08-13] MEDS ORDERED: BISMUTH SUBSALICYLATE 524 MG/30 ML UD PO PRN (17:35)
[2019-08-13] MEDS ORDERED: MAGNESIUM CITRATE 300 ML BOTTLE PO PRN (17:35)
[2019-08-13] MEDS ORDERED: MENTHOL/PHENOL 1 EACH UD MM PRN (17:35)
[2019-08-13] MEDS ORDERED: MAGNESIUM HYDROX 2400MG/30ML ORAL SUSPENSION 30 ML CUP PO PRN (17:35)
[2019-08-13] MEDS ORDERED: cloNIDine HCL 0.1 MG TABLET PO PRN (17:35)
[2019-08-13] MEDS ORDERED: METHADONE HCL 10 MG TABLET (FOR DETOX USE ONLY) PO ONE (18:00)
[2019-08-13] MEDS: AMOX TR/POT CLAV 875MG/125MG TABLETS (FP) PO SCH (18:21)
--- NOTE | 2019-08-13 19:22 | PN ---
Teaching Attending Note Name of Resident: Sabi Gautam ATTENDING PHYSICIAN STATEMENT I saw and evaluated the patient. I reviewed the resident's note and discussed the case with the resident. I agree with the resident's findings and plan as documented. SUBJECTIVE:18 yr old male here requesting here for detox from heroin states 3 bundles/ day via IV increased , first age of use 1 yr ago , sharing [place] , OD 3 days ago Narcan by friend then taken @ [facility] etoh : 1 pint and 12 beers since 1 yr ago , denies seizures, claims he had tremors , + blackout 1 week ago , latest use 5 am today cannabis : daily cocaine : denies mtd - DENIES MMTP BENZO - denies OBJECTIVE: wnwd , + UE track dela cruz w/ erythema, superficial fresh dela cruz Vital Signs - 24 hr 08/13/19 16:02 Temperature 98.6 F Pulse Rate 87 Respiratory 16 Rate Blood Pressure 117/66 ASSESSMENT AND PLAN: OUD - Methadone detox .
[2019-08-13] MEDS: BACITRACIN 15 GM TUBE TOPICAL OINTMENT TP SCH (20:05)
[2019-08-13] MEDS: THIAMINE HCL 100 MG TABLET (FP) PO SCH (22:06)
[2019-08-13] MEDS: hydrOXYzine PAMOATE 25 MG CAPSULE (FP) PO PRN (22:06)
[2019-08-13] MEDS: MELATONIN 5 MG TABLETS PO PRN (22:06)
[2019-08-13] MEDS: METHOCARBAMOL 500 MG TABLET PO PRN (22:06)
[2019-08-14] MEDS: AMOX TR/POT CLAV 875MG/125MG TABLETS (FP) PO SCH ×2 (08:30→17:32)
[2019-08-14] MEDS ORDERED: METHADONE HCL 5 MG TABLET (FOR DETOX USE ONLY) ONE (09:23)
[2019-08-14] MEDS ORDERED: METHADONE HCL 10 MG TABLET (FOR DETOX USE ONLY) ONE (09:23)
[2019-08-14 09:53] LABS: HEMATOCRIT 37.1 % (35.4-49); MCH 24.9 pg (25.7-33.7); MCHC 32.4 g/dl (32.0-35.9); MEAN CELL VOLUME 76.8 fl (80-96); MEAN PLT VOLUME 9.3 fl (7.5-11.1); PLATELET COUNT 252 K/MM3 (134-434); RBC 4.83 M/mm3 (4.00-5.60); RDW 17.6 % (11.9-15.9); WHITE BLOOD COUNT 7.4 K/mm3 (4.0-10.0)
[2019-08-14] MEDS ORDERED: METHADONE (DETOX) 20 MG, METHADONE (DETOX) 5 MG PO ONE (10:00)
[2019-08-14] MEDS: PRENATAL VITAMINS W/ FOLIC ACID TABLET (FP) PO SCH (10:03)
[2019-08-14] MEDS: NICOTINE 21 MG/24 HOURS TOPICAL PATCH TD SCH (10:03)
[2019-08-14] MEDS: BACITRACIN 15 GM TUBE TOPICAL OINTMENT TP SCH (10:03)
[2019-08-14 10:05] LABS: ALBUMIN 3.3 g/dl (3.4-5.0); BILIRUBIN,TOTAL 0.4 mg/dL (0.2-1); BLOOD UREA NITROGEN 9.8 mg/dL (7-18); CALCIUM 9.2 mg/dL (8.5-10.1); CREATININE 0.8 mg/dL (0.55-1.3); POTASSIUM 4.3 mmol/L (3.5-5.1); TOT PROT 6.5 g/dl (6.4-8.2)
[2019-08-14] MEDS: METHOCARBAMOL 500 MG TABLET PO PRN ×2 (10:07→17:39)
[2019-08-14] MEDS ORDERED: diazePAM 5 MG TABLET PO ONE (10:10)
--- NOTE | 2019-08-14 10:45 | EKG ---
Test Reason : Blood Pressure : / mmHG Vent. Rate : 058 BPM Atrial Rate : 058 BPM P-R Int : 132 ms QRS Dur : 098 ms QT Int : 412 ms P-R-T Axes : 061 074 034 degrees QTc Int : 404 ms SINUS BRADYCARDIA WITH SINUS ARRHYTHMIA OTHERWISE NORMAL ECG WHEN COMPARED WITH ECG OF 31-DEC-2018 13:53, NO SIGNIFICANT CHANGE WAS FOUND Confirmed by JASWANT FELIX MD ([id number]) on 08/14/2019 10:45:04 AM Referred By: Confirmed By:JASWANT FELIX MD
--- NOTE | 2019-08-14 11:48 | PN ---
[facility] CIWA - CIWA Score Nausea/Vomitin-No Nausea/No Vomiting Muscle Tremors: 4-Moderate,w/Arms Extend Anxiety: 4-Mod. Anxious/Guarded Agitation: 4-Moderately Restless Paroxysmal Sweats: 3 Orientation: 0-Oriented Tacttile Disturbances: 0-None Auditory Disturbances: 0-None Visual Disturbances: 0-None Headache: 0-None Present CIWA-Ar Total Score: 15 BHS COWS - Scale Resting Pulse: 0= [place] 80 or Below Sweatin= Chills/Flushing Restless Observation: 1= Difficult to Sit Still Pupil Size: 0= Normal to Room Light Bone or Joint Aches: 2= Severe Diffuse Aches Runny Nose/ Eye Tearin= Nasal Congestion GI Upset > 30mins: 0= None Tremor Observation of Outstretched Hands: 2= Slight Tremor Visible Yawning Observation: 1= 1-2x During Session Anxiety or Irritability: 2=Irritable/Anxious Goose Flesh Skin: 3=Piloerection COWS Score: 13 S Progress Note (SOAP) Subjective: sweats chills body aches interrupted sleep agitation restless anxiety weight loss why am I getting klonopin. I need to get on a detox for alcohol and benzo use. the prn klonopin is not helping. Objective: 08/14/19 11:45 Vital Signs Temperature 97.8 F 08/14/19 09:37 Pulse Rate 64 08/14/19 09:37 Respiratory Rate 18 08/14/19 09:37 Blood Pressure 102/60 08/14/19 09:37 O2 Sat by Pulse Oximetry (%) Laboratory Tests 08/14/19 08/14/19 08/14/19 08:00 08:00 08:00 WBC 7.4 RBC 4.83 Hgb 12.0 Hct 37.1 MCV 76.8 L MCH 24.9 L MCHC 32.4 RDW 17.6 H Plt Count 252 D MPV 9.3 Sodium 139 Potassium 4.3 Chloride 106 Carbon Dioxide 28 Anion Gap 5 L BUN 9.8 Creatinine 0.8 Est GFR (CKD-EPI)AfAm 149.04 Est GFR (CKD-EPI)NonAf 128.60 Random Glucose 84 Calcium 9.2 Total Bilirubin 0.4 AST 64 H ALT 221 H Alkaline Phosphatase 133 H Total Protein 6.5 Albumin 3.3 L RPR Titer Nonreactive HIV 1&2 Antibody Screen HIV P24 Antigen 08/14/19 08:00 WBC RBC Hgb Hct MCV MCH MCHC RDW Plt Count MPV Sodium Potassium Chloride Carbon Dioxide Anion Gap BUN Creatinine Est GFR (CKD-EPI)AfAm Est GFR (CKD-EPI)NonAf Random Glucose Calcium Total Bilirubin AST ALT Alkaline Phosphatase Total Protein Albumin RPR Titer HIV 1&2 Antibody Screen Negative HIV P24 Antigen Negative labs noted elevated liver enzymes aaox3 ambulating no acute distress Assessment: 08/14/19 11:46 withdrawals Plan: klonopin d/c ordered valium detox regimen; pt made aware and in agreement continue with set detox regimen increase fluids ensure plus 120ml po bid
[2019-08-14] MEDS: diazePAM 5 MG TABLET PO SCH ×2 (13:03→22:24)
[2019-08-14] MEDS: diazePAM 5 MG TABLET PO PRN (17:31)
[2019-08-14] MEDS: THIAMINE HCL 100 MG TABLET (FP) PO SCH (22:24)
[2019-08-14] MEDS: hydrOXYzine PAMOATE 25 MG CAPSULE (FP) PO PRN (22:25)
[2019-08-15] MEDS: diazePAM 5 MG TABLET PO SCH ×3 (06:14→22:13)
[2019-08-15] MEDS: AMOX TR/POT CLAV 875MG/125MG TABLETS (FP) PO SCH ×2 (08:03→17:40)
[2019-08-15] MEDS ORDERED: METHADONE HCL 10 MG TABLET (FOR DETOX USE ONLY) PO ONE (10:00)
--- NOTE | 2019-08-15 10:11 | PN ---
[facility] CIWA - CIWA Score Nausea/Vomitin-No Nausea/No Vomiting Muscle Tremors: 2 Anxiety: 2 Agitation: 3 Paroxysmal Sweats: 2 Orientation: 0-Oriented Tacttile Disturbances: 0-None Auditory Disturbances: 0-None Visual Disturbances: 0-None Headache: 0-None Present CIWA-Ar Total Score: 9 BHS COWS - Scale Resting Pulse: 0= [place] 80 or Below Sweatin= Chills/Flushing Restless Observation: 1= Difficult to Sit Still Pupil Size: 0= Normal to Room Light Bone or Joint Aches: 1= Mild Discomfort Runny Nose/ Eye Tearin= Nasal Congestion GI Upset > 30mins: 0= None Tremor Observation of Outstretched Hands: 2= Slight Tremor Visible Yawning Observation: 1= 1-2x During Session Anxiety or Irritability: 2=Irritable/Anxious Goose Flesh Skin: 0=Smooth Skin COWS Score: 9 BHS Progress Note (SOAP) Subjective: interrupted sleep agitation sweats body aches irritable Objective: 08/15/19 10:10 Vital Signs Temperature 96.8 F L 08/15/19 09:51 Pulse Rate 65 08/15/19 09:51 Respiratory Rate 16 08/15/19 09:51 Blood Pressure 129/69 08/15/19 09:51 O2 Sat by Pulse Oximetry (%) Laboratory Tests 08/14/19 08/14/19 08/14/19 08:00 08:00 08:00 WBC 7.4 RBC 4.83 Hgb 12.0 Hct 37.1 MCV 76.8 L MCH 24.9 L MCHC 32.4 RDW 17.6 H Plt Count 252 D MPV 9.3 Sodium 139 Potassium 4.3 Chloride 106 Carbon Dioxide 28 Anion Gap 5 L BUN 9.8 Creatinine 0.8 Est GFR (CKD-EPI)AfAm 149.04 Est GFR (CKD-EPI)NonAf 128.60 Random Glucose 84 Calcium 9.2 Total Bilirubin 0.4 AST 64 H ALT 221 H Alkaline Phosphatase 133 H Total Protein 6.5 Albumin 3.3 L RPR Titer Nonreactive HIV 1&2 Antibody Screen HIV P24 Antigen 08/14/19 08:00 WBC RBC Hgb Hct MCV MCH MCHC RDW Plt Count MPV Sodium Potassium Chloride Carbon Dioxide Anion Gap BUN Creatinine Est GFR (CKD-EPI)AfAm Est GFR (CKD-EPI)NonAf Random Glucose Calcium Total Bilirubin AST ALT Alkaline Phosphatase Total Protein Albumin RPR Titer HIV 1&2 Antibody Screen Negative HIV P24 Antigen Negative repeated labs pending aaox3 ambulating no acute distress Assessment: 08/15/19 10:11 withdrawals Plan: continue detox increase fluids
[2019-08-15 10:22] LABS: SGOT/AST 65 U/L (15-37); SGPT/ALT 204 U/L (13-61)
[2019-08-15] MEDS: NICOTINE 21 MG/24 HOURS TOPICAL PATCH TD SCH (10:42)
[2019-08-15] MEDS: PRENATAL VITAMINS W/ FOLIC ACID TABLET (FP) PO SCH (10:42)
[2019-08-15] MEDS: BACITRACIN 15 GM TUBE TOPICAL OINTMENT TP SCH (10:42)
[2019-08-15 10:50] LABS: INR 1.11 (0.83-1.09); PROTHROMBIN TIME (PATIENT) 13.1 SEC (9.7-13.0)
[2019-08-15] MEDS: METHOCARBAMOL 500 MG TABLET PO PRN ×2 (10:50→17:42)
[2019-08-15] MEDS: hydrOXYzine PAMOATE 25 MG CAPSULE (FP) PO PRN ×2 (10:50→22:12)
[2019-08-15] MEDS: diazePAM 5 MG TABLET PO PRN ×2 (12:04→17:41)
[2019-08-15] MEDS: THIAMINE HCL 100 MG TABLET (FP) PO SCH (22:12)
[2019-08-15] MEDS: ACETAMINOPHEN 325 MG TABLET (FP) PO PRN (23:18)
[2019-08-16] MEDS: diazePAM 5 MG TABLET PO SCH ×2 (06:32→17:46)
[2019-08-16] MEDS: AMOX TR/POT CLAV 875MG/125MG TABLETS (FP) PO SCH ×2 (07:13→17:46)
[2019-08-16] MEDS ORDERED: METHADONE HCL 5 MG TABLET (FOR DETOX USE ONLY) ONE (09:28)
[2019-08-16] MEDS ORDERED: METHADONE HCL 10 MG TABLET (FOR DETOX USE ONLY) ONE (09:28)
[2019-08-16] MEDS ORDERED: METHADONE (DETOX) 10 MG, METHADONE (DETOX) 5 MG PO ONE (10:00)
[2019-08-16] MEDS: BACITRACIN 15 GM TUBE TOPICAL OINTMENT TP SCH (10:21)
[2019-08-16] MEDS: NICOTINE 21 MG/24 HOURS TOPICAL PATCH TD SCH (10:21)
[2019-08-16] MEDS: PRENATAL VITAMINS W/ FOLIC ACID TABLET (FP) PO SCH (10:21)
[2019-08-16] MEDS: METHOCARBAMOL 500 MG TABLET PO PRN ×2 (10:24→17:51)
[2019-08-16] MEDS: diazePAM 5 MG TABLET PO PRN ×3 (10:24→20:41)
[2019-08-16] MEDS: ACETAMINOPHEN 325 MG TABLET (FP) PO PRN (14:06)
--- NOTE | 2019-08-16 17:01 | PN ---
S CIWA - CIWA Score Nausea/Vomitin-No Nausea/No Vomiting Muscle Tremors: 2 Anxiety: 4-Mod. Anxious/Guarded Agitation: 3 Paroxysmal Sweats: 2 Orientation: 0-Oriented Tacttile Disturbances: 0-None Auditory Disturbances: 0-None Visual Disturbances: 0-None Headache: 2-Mild CIWA-Ar Total Score: 13 BHS COWS - Scale Resting Pulse: 0= [place] 80 or Below Sweatin= Chills/Flushing Restless Observation: 1= Difficult to Sit Still Pupil Size: 0= Normal to Room Light Bone or Joint Aches: 1= Mild Discomfort Runny Nose/ Eye Tearin= None GI Upset > 30mins: 0= None Tremor Observation of Outstretched Hands: 2= Slight Tremor Visible Yawning Observation: 1= 1-2x During Session Anxiety or Irritability: 2=Irritable/Anxious Goose Flesh Skin: 3=Piloerection COWS Score: 11 BHS Progress Note (SOAP) Subjective: Tremors, H/A, Anxious, Restless, Sweating, Hot / Cold Sensations, Chills. Objective: PATIENT A & O X 3, OBSERVED AMBULATING ON DETOX UNIT UNASSISTED. IN NO ACUTE DISTRESS. 08/16/19 16:59 Vital Signs Temperature 97.0 F L 08/16/19 14:03 Pulse Rate 78 08/16/19 14:03 Respiratory Rate 16 08/16/19 14:03 Blood Pressure 114/64 08/16/19 14:03 O2 Sat by Pulse Oximetry (%) Laboratory Tests 08/14/19 08/14/19 08/14/19 08:00 08:00 08:00 WBC 7.4 RBC 4.83 Hgb 12.0 Hct 37.1 MCV 76.8 L MCH 24.9 L MCHC 32.4 RDW 17.6 H Plt Count 252 D MPV 9.3 PT with INR INR Sodium 139 Potassium 4.3 Chloride 106 Carbon Dioxide 28 Anion Gap 5 L BUN 9.8 Creatinine 0.8 Est GFR (CKD-EPI)AfAm 149.04 Est GFR (CKD-EPI)NonAf 128.60 Random Glucose 84 Calcium 9.2 Total Bilirubin 0.4 AST 64 H ALT 221 H Alkaline Phosphatase 133 H Total Protein 6.5 Albumin 3.3 L RPR Titer Nonreactive HIV 1&2 Antibody Screen HIV P24 Antigen 08/14/19 08/15/19 08/15/19 08:00 07:45 07:45 WBC RBC Hgb Hct MCV MCH MCHC RDW Plt Count MPV PT with INR 13.10 H INR 1.11 H Sodium Potassium Chloride Carbon Dioxide Anion Gap BUN Creatinine Est GFR (CKD-EPI)AfAm Est GFR (CKD-EPI)NonAf Random Glucose Calcium Total Bilirubin AST 65 H ALT 204 H Alkaline Phosphatase Total Protein Albumin RPR Titer HIV 1&2 Antibody Screen Negative HIV P24 Antigen Negative LABS NOTED. Assessment: 08/16/19 17:03 WITHDRAWAL SYMPTOMS. ELEVATED LIVER ENZYMES. Plan: CONTINUE DETOX. INCREASE DAILY ORAL WATER INTAKE.
--- NOTE | 2019-08-16 17:24 | CONSULT ---
[facility] Psychiatric Consult - Data Date of interview: 08/16/19 Admission source: [facility] Identifying data: Revisit to [facility] and admission to [address] [place] [address] for this 18 y/o [place] male, self-referred for detoxification (EMILIANO issues : cannabis, alcohol, cocaine, heroin, xanax). Patient is single, no children, homeless, unemployed and supported on food stamps. Substance Abuse History: Discussed wth the patient. Details in current [facility] report as folows : Smoking history: Never smoked. Have you smoked in the past 12 months: No. Aproximately how many cigarettes per day: 0. Hx Chewing Tobacco Use: No. Substance & Tx. History. Hx Alcohol Use: Yes. Hx Substance Use: Yes. Substance Use Type: Cocaine, Heroin, Marijuana. Hx Substance Use Treatment: No. - Substances abused. Heroin. Substance route: Injection. Frequency: Daily. Amount used: 4 bundles/day. Age of first use: 17. Date of last use: 08/13/19. Other. Other (specify): Percocet. Substance route: Oral. Frequency: Daily. Amount used: 10 pills a day. Age of first use: 15. Date of last use: 07/30/19. Alcohol. Substance route: Oral. Frequency: Daily. Amount used: 1 liter of janna, 12 pack of osmany. Age of first use: 10. Date of last use: 08/13/19. Cocaine. Substance route: Injection. Frequency: 1-3 times last 30 days. Amount used: $60. Age of first use: 15. Date of last use: 06/28/19. Marijuana/Hashish. Substance route: Smoking. Frequency: Daily. Amount used: 09/17. Age of first use: 11. Date of last use : 08/13/19 Medical History: Patient endorses good general health. Psychiatric History: Patient denies history of psychiatric hospitalizations, OPD care or suicide attempts. Mr Betts reports past maintenance on suboxone. Physical/Sexual Abuse/Trauma History: Patient denies history of abuse. Additional Comment: Urine drug screen results: THC-Marijuana, CHU-Cocaine, FEN- Fentanyl, MOP-Opiates, MTD-Methadone, BZO-Benzodiazepines. Noted. Mental Status Exam - Mental Status Exam Alert and Oriented to: Time, Place, Person Cognitive Function: Good Patient Appearance: Unkempt, Disheveled Mood: Hostile, Withdrawn, Irritable Affect: Mood Congruent, Constricted Patient Behavior: Fatigued, Guarded Speech Pattern: Clear Voice Loudness: Normal Thought Process: Goal Oriented Thought Disorder: Not Present Hallucinations: Denies Suicidal Ideation: Denies Homicidal Ideation: Denies Insight/Judgement: Poor Sleep: Well Appetite: Good Gait/Station: Normal Psychiatric Findings - Problem List ([place] 1, 2,3) (1) Alcohol dependence with uncomplicated withdrawal Current Visit: Yes Status: Acute (2) Opioid dependence with withdrawal Current Visit: Yes Status: Acute (3) Cannabis abuse Current Visit: Yes Status: Chronic (4) Cocaine dependence Current Visit: Yes Status: Chronic Qualifiers: Substance use status: in withdrawal Qualified Code(s): F14.23 - Cocaine dependence with withdrawal (5) Nicotine dependence Current Visit: Yes Status: Chronic Qualifiers: Nicotine product type: cigarettes Substance use status: in withdrawal Qualified Code(s): F17.213 - Nicotine dependence, cigarettes, with withdrawal (6) Substance induced mood disorder Current Visit: Yes Status: Chronic - Initial Treatment Plan Initial Treatment Plan: Pychoeducation. Sleep hygiene. Detoxification. AA/NA meetings. Observation.
[2019-08-16] MEDS: IBUPROFEN 400 MG TABLET (FP) PO PRN (17:50)
[2019-08-16] MEDS: MELATONIN 5 MG TABLETS PO PRN (20:41)
[2019-08-16] MEDS: THIAMINE HCL 100 MG TABLET (FP) PO SCH (21:46)
[2019-08-17] MEDS ORDERED: diazePAM 5 MG TABLET PO ONE (06:00)
[2019-08-17] MEDS: AMOX TR/POT CLAV 875MG/125MG TABLETS (FP) PO SCH ×2 (07:45→16:56)
[2019-08-17] MEDS ORDERED: METHADONE HCL 10 MG TABLET (FOR DETOX USE ONLY) PO ONE (10:00)
[2019-08-17] MEDS: BACITRACIN 15 GM TUBE TOPICAL OINTMENT TP SCH (10:09)
[2019-08-17] MEDS: PRENATAL VITAMINS W/ FOLIC ACID TABLET (FP) PO SCH (10:09)
[2019-08-17] MEDS: NICOTINE 21 MG/24 HOURS TOPICAL PATCH TD SCH (10:09)
[2019-08-17] MEDS: METHOCARBAMOL 500 MG TABLET PO PRN (10:14)
[2019-08-17] MEDS ORDERED: cloNIDine HCL 0.1 MG TABLET PO PRN (10:22)
[2019-08-17] MEDS: IBUPROFEN 400 MG TABLET (FP) PO PRN (11:04)
[2019-08-17] MEDS: hydrOXYzine PAMOATE 25 MG CAPSULE (FP) PO PRN (11:04)
--- NOTE | 2019-08-17 18:00 | PN ---
[facility] CIWA - CIWA Score Nausea/Vomitin-No Nausea/No Vomiting Muscle Tremors: None Anxiety: 2 Agitation: 2 Paroxysmal Sweats: 2 Orientation: 0-Oriented Tacttile Disturbances: 0-None Auditory Disturbances: 0-None Visual Disturbances: 0-None Headache: 0-None Present CIWA-Ar Total Score: 6 S COWS - Scale Resting Pulse: 0= [place] 80 or Below Sweatin= No chills or Flushing Restless Observation: 0= Sits Still Pupil Size: 0= Normal to Room Light Bone or Joint Aches: 1= Mild Discomfort Runny Nose/ Eye Tearin= None GI Upset > 30mins: 1= Stomach Cramp Tremor Observation of Outstretched Hands: 0= None Yawning Observation: 0= None Anxiety or Irritability: 1=Feels Anxious/Irritable Goose Flesh Skin: 0=Smooth Skin COWS Score: 3 S Progress Note (SOAP) Subjective: Anxious, irritable, chills, sweating, tremor, stomachache Objective: 08/17/19 17:56 Last Vital Signs Temp Pulse Resp BP Pulse Ox 97.8 F 84 18 119/63 08/17/19 15:15 08/17/19 15:15 08/17/19 15:15 08/17/19 15:15 Laboratory Tests 08/14/19 08/14/19 08/14/19 08:00 08:00 08:00 WBC 7.4 RBC 4.83 Hgb 12.0 Hct 37.1 MCV 76.8 L MCH 24.9 L MCHC 32.4 RDW 17.6 H Plt Count 252 D MPV 9.3 PT with INR INR Sodium 139 Potassium 4.3 Chloride 106 Carbon Dioxide 28 Anion Gap 5 L BUN 9.8 Creatinine 0.8 Est GFR (CKD-EPI)AfAm 149.04 Est GFR (CKD-EPI)NonAf 128.60 Random Glucose 84 Calcium 9.2 Total Bilirubin 0.4 AST 64 H ALT 221 H Alkaline Phosphatase 133 H Total Protein 6.5 Albumin 3.3 L RPR Titer Nonreactive HIV 1&2 Antibody Screen HIV P24 Antigen 08/14/19 08/15/19 08/15/19 08:00 07:45 07:45 WBC RBC Hgb Hct MCV MCH MCHC RDW Plt Count MPV PT with INR 13.10 H INR 1.11 H Sodium Potassium Chloride Carbon Dioxide Anion Gap BUN Creatinine Est GFR (CKD-EPI)AfAm Est GFR (CKD-EPI)NonAf Random Glucose Calcium Total Bilirubin AST 65 H ALT 204 H Alkaline Phosphatase Total Protein Albumin RPR Titer HIV 1&2 Antibody Screen Negative HIV P24 Antigen Negative Labs reviewed: elevated LFTs Assessment: 08/17/19 17:57 Withdrawal sxs Elevated LFTs noted Plan: Continue detox Encouraged PO water intake Clonidine prn added for withdrawal sxs Scheduled for discharge tomorrow Elevated LFTs: most likely due to alcoholism, encouraged abstinence, follow up with PCP for monitoring
--- NOTE | 2019-08-17 18:02 | PN ---
[facility] Progress Note Note: patient would like to be discharged today instead of tomorrow Vital Signs Temperature 97.8 F 08/17/19 15:15 Pulse Rate 84 08/17/19 15:15 Respiratory Rate 18 08/17/19 15:15 Blood Pressure 119/63 08/17/19 15:15 O2 Sat by Pulse Oximetry (%) stable for discharge today prescription augmentin 875 mgs po bid for 7 days sent o [facility] as per patient's request
[2019-08-17 18:05] VITALS: BP 116/63; PULSE 90; TEMP 98.2
--- NOTE | 2019-08-17 18:09 | DS ---
[facility] Detox Discharge Summary Admission Date: 08/13/19 Discharge Date: 08/17/19 - History Present History: Cannabis Dependence, Cocaine Dependence, Opioid Dependence Additional Comments: stable for discharge aware of elevation of alt,ast,will see his medical provider for follow up and for cellulitis Pertinent Past History: ivdu nicotine dependence cellulitis Vital Signs Temperature 98.2 F 08/17/19 18:04 Pulse Rate 90 08/17/19 18:04 Respiratory Rate 18 08/17/19 18:04 Blood Pressure 116/63 08/17/19 18:04 O2 Sat by Pulse Oximetry (%) - Physical Exam Results Vital Signs: Vital Signs Temperature 98.2 F 08/17/19 18:04 Pulse Rate 90 08/17/19 18:04 Respiratory Rate 18 08/17/19 18:04 Blood Pressure 116/63 08/17/19 18:04 O2 Sat by Pulse Oximetry (%) Pertinent Admission Physical Exam Findings: withdrawal signs and symptom Laboratory Last Values WBC 7.4 K/mm3 (4.0-10.0) 08/14/19 08:00 RBC 4.83 M/mm3 (4.00-5.60) 08/14/19 08:00 Hgb 12.0 GM/dL (11.7-16.9) 08/14/19 08:00 Hct 37.1 % (35.4-49) 08/14/19 08:00 MCV 76.8 fl (80-96) L 08/14/19 08:00 MCH 24.9 pg (25.7-33.7) L 08/14/19 08:00 MCHC 32.4 g/dl (32.0-35.9) 08/14/19 08:00 RDW 17.6 % (11.9-15.9) H 08/14/19 08:00 Plt Count 252 K/MM3 (134-434) D 08/14/19 08:00 MPV 9.3 fl (7.5-11.1) 08/14/19 08:00 PT with INR 13.10 SEC (9.7-13.0) H 08/15/19 07:45 INR 1.11 (0.83-1.09) H 08/15/19 07:45 Sodium 139 mmol/L (136-145) 08/14/19 08:00 Potassium 4.3 mmol/L (3.5-5.1) 08/14/19 08:00 Chloride 106 mmol/L (98-107) 08/14/19 08:00 Carbon Dioxide 28 mmol/L (21-32) 08/14/19 08:00 Anion Gap 5 MMOL/L (8-16) L 08/14/19 08:00 BUN 9.8 mg/dL (7-18) 08/14/19 08:00 Creatinine 0.8 mg/dL (0.55-1.3) 08/14/19 08:00 Est GFR (CKD-EPI)AfAm 149.04 08/14/19 08:00 Est GFR (CKD-EPI)NonAf 128.60 08/14/19 08:00 Random Glucose 84 mg/dL (74-106) 08/14/19 08:00 Calcium 9.2 mg/dL (8.5-10.1) 08/14/19 08:00 Total Bilirubin 0.4 mg/dL (0.2-1) 08/14/19 08:00 AST 65 U/L (15-37) H 08/15/19 07:45 ALT 204 U/L (13-61) H 08/15/19 07:45 Alkaline Phosphatase 133 U/L (45-117) H 08/14/19 08:00 Total Protein 6.5 g/dl (6.4-8.2) 08/14/19 08:00 Albumin 3.3 g/dl (3.4-5.0) L 08/14/19 08:00 RPR Titer Nonreactive (NONREACTIVE) 08/14/19 08:00 HIV 1&2 Antibody Screen Negative 08/14/19 08:00 HIV P24 Antigen Negative 08/14/19 08:00 - Treatment Hospital Course: Detox Protocol Followed, Detoxed Safely, Responded well, Discharged Condition Good Patient has Accepted a Rehab Referral to: declined - Medication Discharge Medications: Ambulatory Orders Amox-Tr/K Cl [Augmentin 875-125mg Tablet -] 1 tab PO BID@0800,1730 #14 tablet Bacitracin - [Bacitracin Topical Ointment -] 1 applic TP DAILY #1 tube 08/17/19 - Diagnosis (1) Opioid dependence with withdrawal Current Visit: Yes Status: Acute (2) Cannabis abuse Current Visit: Yes Status: Chronic (3) Alcohol dependence with uncomplicated withdrawal Current Visit: Yes Status: Acute (4) Elevated liver enzymes Current Visit: Yes Status: Acute (5) Cocaine dependence Current Visit: Yes Status: Chronic Qualifiers: Substance use status: in withdrawal Qualified Code(s): F14.23 - Cocaine dependence with withdrawal (6) Nicotine dependence Current Visit: Yes Status: Chronic Qualifiers: Nicotine product type: cigarettes Substance use status: in withdrawal Qualified Code(s): F17.213 - Nicotine dependence, cigarettes, with withdrawal (7) Cellulitis Current Visit: No Status: Acute Qualifiers: Site of cellulitis: extremity Site of cellulitis of extremity: upper extremity Laterality: unspecified laterality Qualified Code(s): L03.119 - Cellulitis of unspecified part of limb (8) Weight loss Current Visit: No Status: Acute - AMA Did Patient Leave Against Medical Advice: No
[2019-08-18] MEDS ORDERED: METHADONE HCL 5 MG TABLET (FOR DETOX USE ONLY) PO ONE (06:00)
== END 2019-08-17 17:46 | disposition home or self-care (01) | DRG 773 ==
LOC: YASAS 14:40 → Y6N 17:39
PROVIDERS: ADMIT Allergy & Immunology; ATTEND Allergy & Immunology
PROC: HZ2ZZZZ Detoxification Services for Substance Abuse Treatment (ICD-10-PCS; principal; 2019-08-13)
DX: F11.23 Opioid dependence with withdrawal (principal); F10.230 Alcohol dependence with withdrawal, uncomplicated; F14.20 Cocaine dependence, uncomplicated; F12.20 Cannabis dependence, uncomplicated; F17.210 Nicotine dependence, cigarettes, uncomplicated; F19.24 Other psychoactive substance dependence with psychoactive substance-induced mood disorder; L03.119 Cellulitis of unspecified part of limb; R74.8 Abnormal levels of other serum enzymes; R63.4 Abnormal weight loss; Z68.24 Body mass index [BMI] 24.0-24.9, adult; Z88.8 Allergy status to other drugs, medicaments and biological substances; Z59.0 Homelessness
CPT/HCPCS: 36415; 80053; 84450; 84460; 85027; 85610; 86593; 87389; 93005; 93010; J0735

== ENCOUNTER 2019-09-08 16:00 | Inpatient (IN) | payer OTHER ==
[2019-09-08 17:57] VITALS: BMI 25.0
--- NOTE | 2019-09-08 19:33 | HP ---
COWS - Scale Resting Pulse: 1= [place] 81-100 Sweatin= Chills/Flushing Restless Observation: 1= Difficult to Sit Still Pupil Size: 1= Pupils >than Normal Bone or Joint Aches: 2= Severe Diffuse Aches Runny Nose/ Eye Tearin= Runny Nose/Eyes GI Upset > 30mins: 2= Nausea/Diarrhea Tremor Observation: 1= Tremor [place], Not Seen Yawning Observation: 1= 1-2x During Session Anxiety or Irritability: 1=Feels Anxious/Irritable Goose Flesh Skin: 0=Smooth Skin COWS Score: 13 CIWA Score Nausea/Vomitin Muscle Tremors: 3 Anxiety: 2 Agitation: 2 Paroxysmal Sweats: 2 Orientation: 0-Oriented Tacttile Disturbances: 0-None Auditory Disturbances: 0-None Visual Disturbances: 0-None Headache: 1-Very Mild CIWA-Ar Total Score: 12 - Admission Criteria OASAS Guidelines: Admission for Medically Managed Detox: Requires at least one of the followin. CIWA greater than 12 2. Seizures within the past 24 hours 3. Delirium tremens within the past 24 hours 4. Hallucinations within the past 24 hours 5. Acute intervention needed for co occurring medical disorder 6. Acute intervention needed for co occurring psychiatric disorder 7. Severe withdrawal that cannot be handled at a lower level of care (continued vomiting, continued diarrhea, abnormal vital signs) requiring intravenous medication and/or fluids 8. Admitting History and Physical - Smoking History Smoking history: Never smoked Have you smoked in the past 12 months: No Aproximately how many cigarettes per day: 0 - Alcohol/Substance Use Hx Alcohol Use: Yes - Social History ADL: Independent History of Recent Travel: No Admission [facility] Chief Complaint: here for detox from alcohol and heroin Allergies/Adverse Reactions: Allergies Allergy/AdvReac Type Severity Reaction Status Date / Time Fish Containing Products Allergy Verified 09/08/19 17:43 chlordiazepoxide AdvReac Mild Verified 09/08/19 17:43 [From Librium] History of Present Illness: 18 yo with h/o THC, heroin use and alcohol use, was last discharged from here on 08/19. Pt states he did not use for about 1 week and then relapsed using again. Pt states he is on a heroin binge. Also using alcohol and MJ. Heroin- 3-4 bundles IV, past h/o OD, narcan kit at home. Started with using pain pills as a teenager. 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 DUR- no substances - Ebola screening Have you traveled outside of the country in the last 21 days: No Have you had contact with anyone from an Ebola affected area: No Do you have a fever: No Patient History - Patient Medical History Hx Anemia: No Hx Asthma: No Hx Chronic Obstructive Pulmonary Disease (COPD): No Hx Cancer: No Hx Cardiac Disorders: No Hx Congestive Heart Failure: No Hx Hypertension: No Hx Hypercholesterolemia: No Hx Pacemaker: No HX Cerebrovascular Accident: No Hx Seizures: No Hx Dementia: No Hx Diabetes: No Hx Gastrointestinal Disorders: No Hx Liver Disease: No Hx Genitourinary Disorders: No Hx Sexually Transmitted Disorders: No Hx Renal Disease (ESRD): No Hx Thyroid Disease: No Hx Human Immunodeficiency Virus (HIV): No (last hiv 11/26 negative) Hx Hepatitis C: No Hx Depression: No Hx Suicide Attempt: No Hx Bipolar Disorder: No Hx Schizophrenia: No Other Medical History: increased liver enzymes - Patient Surgical History Past Surgical History: Yes Hx Neurologic Surgery: No Hx Cataract Extraction: No Hx Cardiac Surgery: No Hx Lung Surgery: No Hx Breast Surgery: No Hx Breast Biopsy: No Hx Abdominal Surgery: No Hx Appendectomy: No Hx Cholecystectomy: No Hx Genitourinary Surgery: No Hx Section: No Hx Orthopedic Surgery: No Other Surgical History: tosllectomy at age of 3 years Anesthesia Reaction: No - PPD History Date: 01/02/19 Results: 0 mm - Smoking Cessation Smoking history: Current every day smoker Have you smoked in the past 12 months: Yes Aproximately how many cigarettes per day: 10 Hx Chewing Tobacco Use: No Initiated information on smoking cessation: Yes 'Breaking Loose' booklet given: 09/08/19 - Substance & Tx. History Substance Use Type: Alcohol, Heroin Hx Substance Use Treatment: No - Substances abused Heroin Substance route: Injection Frequency: Daily Amount used: 4 bundles/day Age of first use: 17 Date of last use: 09/08/19 Other Other (specify): Percocet Substance route: Oral Frequency: Daily Amount used: 10 pills a day Age of first use: 15 Date of last use: 07/30/19 Alcohol Substance route: Oral Frequency: Daily Amount used: 1 liter of janna, 12 pack of osmany Age of first use: 10 Date of last use: 09/08/19 Cocaine Substance route: Injection Frequency: 1-3 times last 30 days Amount used: $60 Age of first use: 15 Date of last use: 06/28/19 Marijuana/Hashish Substance route: Smoking Frequency: Daily Amount used: 8 blunts Age of first use: 11 Date of last use: 09/08/19 None Other (specify): Fentanyl Substance route: Injection Frequency: Daily Amount used: 4 bundles Age of first use: 17 Date of last use: 09/08/19 Admission Physical Exam S - Vital Signs Vital Signs: Vital Signs - 24 hr 09/08/19 09/08/19 17:41 19:14 Temperature 98 F 98 F Pulse Rate 66 66 Respiratory 16 16 Rate Blood Pressure 126/71 126/71 - Physical General Appearance: Yes: Disheveled, Moderate Distress HEENTM: Yes: Within Normal Limits, Hearing grossly Normal, Pharynx Normal Respiratory: Yes: Within Normal Limits, Lungs Clear Neck: Yes: Within Normal Limits, No masses,lesions,Nodules Cardiology: Yes: Within Normal Limits, Regular Rhythm, Regular Rate Abdominal: Yes: Within Normal Limits, Normal Bowel Sounds, Non Tender Back: Yes: Within Normal Limits Musculoskeletal: Yes: Within Normal Limits Extremities: Yes: Within Normal Limits Neurological: Yes: Within Normal Limits Integumentary: Yes: Track [place], Other (superficial scratch del[place] cruz on back/ shoulder- pt does not know from where it came- no evidence of infection) Lymphatic: Yes: Within Normal Limits - Diagnostic (1) Alcohol dependence with uncomplicated withdrawal Current Visit: No Status: Acute (2) Elevated liver enzymes Current Visit: No Status: Acute (3) IVDU (intravenous drug user) Current Visit: No Status: Acute (4) Opioid dependence with withdrawal Current Visit: No Status: Acute (5) Cannabis abuse Current Visit: No Status: Chronic (6) Cocaine dependence Current Visit: No Status: Chronic Qualifiers: Substance use status: in withdrawal Qualified Code(s): F14.23 - Cocaine dependence with withdrawal Breathalyzer - Breathalyzer Breathalyzer: 0.007 Urine Drug Screen - Test Device Lot number: [id number] Expiration date: 04/08/21 - Control Is test valid?: Yes - Results Drug screen NEGATIVE: No Urine drug screen results: THC-Marijuana, CHU-Cocaine, FEN-Fentanyl, MOP-Opiates , BZO-Benzodiazepines Inpatient Rehab Admission - Rehab Decision to Admit Inpatient rehab admission?: No
[2019-09-08] MEDS ORDERED: MENTHOL/PHENOL 1 EACH UD MM PRN (19:40)
[2019-09-08] MEDS ORDERED: P-EPHED 60MG/TRIPROLIDI 2.5MG TABLET PO PRN (19:40)
[2019-09-08] MEDS ORDERED: NALOXONE HCL 0.4 MG/ML VIAL IM PRN (19:40)
[2019-09-08] MEDS ORDERED: MAGNESIUM CITRATE 300 ML BOTTLE PO PRN (19:40)
[2019-09-08] MEDS ORDERED: MAGNESIUM HYDROX 2400MG/30ML ORAL SUSPENSION 30 ML CUP PO PRN (19:40)
[2019-09-08] MEDS ORDERED: MAG HYDROX/AL HYDROX/SIMETH 30 ML UNIT-DOSE CUP PO PRN (19:40)
[2019-09-08] MEDS ORDERED: LORazepam 1 MG TABLET PO PRN (19:40)
[2019-09-08] MEDS ORDERED: LOPERAMIDE HCL 2 MG CAPSULE PO PRN (19:40)
[2019-09-08] MEDS ORDERED: ACETAMINOPHEN 325 MG TABLET (FP) PO PRN (19:40)
[2019-09-08] MEDS ORDERED: guaiFENesin 200 MG/10 ML 10 ML UNIT-DOSE CUPS PO PRN (19:40)
[2019-09-08] MEDS ORDERED: LORazepam 2 MG TABLET PO ONE (20:00)
[2019-09-08] MEDS ORDERED: METHADONE HCL 10 MG TABLET (FOR DETOX USE ONLY) PO ONE (20:15)
[2019-09-08] MEDS: LORazepam 2 MG TABLET PO SCH (22:08)
[2019-09-08] MEDS: MELATONIN 5 MG TABLETS PO PRN (22:08)
[2019-09-08] MEDS: THIAMINE HCL 100 MG TABLET (FP) PO SCH (22:08)
[2019-09-08] MEDS: IBUPROFEN 400 MG TABLET (FP) PO PRN (22:32)
[2019-09-09] MEDS: LORazepam 2 MG TABLET PO SCH ×2 (05:53→10:28)
[2019-09-09] MEDS ORDERED: METHADONE HCL 10 MG TABLET (FOR DETOX USE ONLY) ONE (08:16)
[2019-09-09] MEDS ORDERED: METHADONE HCL 5 MG TABLET (FOR DETOX USE ONLY) ONE (08:17)
[2019-09-09] MEDS ORDERED: METHADONE (DETOX) 20 MG, METHADONE (DETOX) 5 MG PO ONE (10:00)
[2019-09-09] MEDS ORDERED: NICOTINE 14 MG/24 HOURS TOPICAL PATCH TD SCH (10:00)
--- NOTE | 2019-09-09 10:19 | PN ---
[facility] CIWA - CIWA Score Nausea/Vomitin-Mild Nausea/No Vomiting Muscle Tremors: 2 Anxiety: 3 Agitation: 2 Paroxysmal Sweats: 2 Orientation: 0-Oriented Tacttile Disturbances: 1-Very Mild Itch/Numbness Auditory Disturbances: 0-None Visual Disturbances: 0-None Headache: 0-None Present CIWA-Ar Total Score: 11 S COWS - Scale Resting Pulse: 0= [place] 80 or Below Sweatin= No chills or Flushing Restless Observation: 0= Sits Still Pupil Size: 1= Pupils >than Normal Bone or Joint Aches: 1= Mild Discomfort Runny Nose/ Eye Tearin= None GI Upset > 30mins: 2= Nausea/Diarrhea Tremor Observation of Outstretched Hands: 2= Slight Tremor Visible Yawning Observation: 0= None Anxiety or Irritability: 2=Irritable/Anxious Goose Flesh Skin: 3=[place] COWS Score: 11 [facility] Progress Note (SOAP) Subjective: 18 years old male admitted on 09/08/19 for alcohol and opiate withdrawal sx management treating with ativan and methadone detox regimens feeling tire resting in bed limited conversation with staff irritable Objective: 09/09/19 10:17 Vital Signs Temperature 96.6 F L 09/09/19 09:09 Pulse Rate 66 09/09/19 09:09 Respiratory Rate 18 09/09/19 09:09 Blood Pressure 98/58 L 09/09/19 09:09 O2 Sat by Pulse Oximetry (%) 09/09/19 10:17 lab pending Assessment: 09/09/19 10:19 alcohol and opiate withdrawal Plan: ativan and methadone regimens
[2019-09-09] MEDS: PRENATAL VITAMINS W/ FOLIC ACID TABLET (FP) PO SCH (10:27)
[2019-09-09] MEDS ORDERED: diazePAM 5 MG TABLET PO SCH (11:00)
[2019-09-09] MEDS: diazePAM 5 MG TABLET PO SCH ×3 (11:54→16:27)
[2019-09-09] MEDS: IBUPROFEN 400 MG TABLET (FP) PO PRN ×2 (11:54→22:04)
[2019-09-09] MEDS ORDERED: METHOCARBAMOL 500 MG TABLET PO PRN (12:02)
[2019-09-09 12:17] LABS: HEMATOCRIT 38.2 % (35.4-49); HEMOGLOBIN 12.5 GM/dL (11.7-16.9); MCH 25.3 pg (25.7-33.7); MCHC 32.8 g/dl (32.0-35.9); MEAN CELL VOLUME 77.1 fl (80-96); MEAN PLT VOLUME 9.5 fl (7.5-11.1); PLATELET COUNT 230 K/MM3 (134-434); RBC 4.96 M/mm3 (4.00-5.60); RDW 16.8 % (11.9-15.9); WHITE BLOOD COUNT 5.9 K/mm3 (4.0-10.0)
[2019-09-09 12:21] LABS: ALBUMIN 3.4 g/dl (3.4-5.0); BILIRUBIN,TOTAL 0.5 mg/dL (0.2-1); BLOOD UREA NITROGEN 12.5 mg/dL (7-18); CALCIUM 9.1 mg/dL (8.5-10.1); CREATININE 0.8 mg/dL (0.55-1.3); POTASSIUM 4.3 mmol/L (3.5-5.1); TOT PROT 6.8 g/dl (6.4-8.2)
[2019-09-09] MEDS: diazePAM 5 MG TABLET PO PRN ×2 (15:15→19:06)
[2019-09-09 17:31] LABS: PH,URINE >= 9.0 (5.0-8.0); URINE APPEARANCE TURBID; URINE BILIRUBIN NEGATIVE (NEGATIVE); URINE COLOR YELLOW; URINE GLUCOSE (UA) NEGATIVE (NEGATIVE); URINE KETONE NEGATIVE (NEGATIVE); URINE LEUK ESTERASE NEGATIVE (NEGATIVE); URINE NITRITE NEGATIVE (NEGATIVE); URINE PROTEIN TRACE (NEGATIVE)
--- NOTE | 2019-09-09 18:25 | CONSULT ---
[facility] Psychiatric Consult - Data Date of interview: 09/09/19 Admission source: [facility] Identifying data: This is one of multiple admissions to [address] [place] [address] for this 18 y/o [place] male, self-referred for detoxification (EMILIANO issues : cannabis, alcohol, cocaine, heroin, xanax). Patient is single, no children, homeless ( moves back and forth to his mother's apartment), unemployed and supported on food stamps. Substance Abuse History: Discussed with patient. Details in current [facility] report as follows : Smoking history: Current every day smoker. Have you smoked in the past 12 months: Yes. Aproximately how many cigarettes per day: 10. Hx Chewing Tobacco Use: No. Initiated information on smoking cessation: Yes. 'Breaking Loose' booklet given: 09/08/19. - Substance & Tx. History. Substance Use Type : Alcohol, Heroin. Hx Substance Use Treatment: No. - Substances abused. Heroin. Substance route: Injection. Frequency: Daily. Amount used: 4 bundles/ day. Age of first use: 17. Date of last use: 09/08/19. Other. Other ( specify): Percocet. Substance route: Oral. Frequency: Daily. Amount used: 10 pills a day. Age of first use: 15. Date of last use: 07/30/19. Alcohol. Substance route: Oral. Frequency: Daily. Amount used: 1 liter of janna, 12 pack of osmany. Age of first use: 10. Date of last use: 09/08/19. Cocaine. Substance route: Injection. Frequency: 1-3 times last 30 days. Amount used: $60. Age of first use: 15. Date of last use: 06/28/19. Marijuana/Hashish. Substance route: Smoking. Frequency: Daily. Amount used: 8 blunts. Age of first use: 11. Date of last use: 09/08/19. None. Other ( specify): Fentanyl. Substance route: Injection. Frequency: Daily. Amount used : 4 bundles. Age of first use: 17. Date of last use: 09/08/19 Medical History: Patient endorses good general health. Psychiatric History: Patient admits to a history of one psychiatric hospitalization ([facility]) for suspected suicide attempt via drug overdose (self-report). Date not recalled by patient. He endorses diagnoses of bipolar disorder and ADHD. Never compliant with medications or psychiatric OPD care. Mr Alpesh indicates that he has dropped out of suboxone maintenance. Physical/Sexual Abuse/Trauma History: Patient denies history of abuse. Additional Comment: Urine drug screen results: THC-Marijuana, CHU-Cocaine, FEN- Fentanyl, MOP-Opiates, BZO-Benzodiazepines. Noted. Mental Status Exam - Mental Status Exam Alert and Oriented to: Time, Place, Person Cognitive Function: Good Patient Appearance: Unkempt, Disheveled Mood: Withdrawn Affect: Mood Congruent, Constricted Patient Behavior: Fatigued, Cooperative Speech Pattern: Clear Voice Loudness: Normal Thought Process: Goal Oriented Thought Disorder: Not Present Hallucinations: Denies Suicidal Ideation: Denies Homicidal Ideation: Denies Insight/Judgement: Poor Sleep: Well Appetite: Good Gait/Station: Other (not observed. In bed all day long.) Psychiatric Findings - Problem List ([place] 1, 2,3) (1) Alcohol dependence with uncomplicated withdrawal Current Visit: Yes Status: Acute (2) Opioid dependence with withdrawal Current Visit: Yes Status: Acute (3) Cannabis abuse Current Visit: Yes Status: Chronic (4) Cocaine dependence Current Visit: Yes Status: Chronic Qualifiers: Substance use status: in withdrawal Qualified Code(s): F14.23 - Cocaine dependence with withdrawal (5) Nicotine dependence Current Visit: Yes Status: Chronic Qualifiers: Nicotine product type: cigarettes Substance use status: in withdrawal Qualified Code(s): F17.213 - Nicotine dependence, cigarettes, with withdrawal (6) Substance induced mood disorder Current Visit: Yes Status: Chronic (7) Non-compliance Current Visit: Yes Status: Chronic Comment: Non-compliant with MAT services. - Initial Treatment Plan Initial Treatment Plan: Psychoeducation. Sleep hygiene. Detoxification. AA/NA meetings. Observation.
[2019-09-09] MEDS: MELATONIN 5 MG TABLETS PO PRN (22:03)
[2019-09-09] MEDS: THIAMINE HCL 100 MG TABLET (FP) PO SCH (22:03)
[2019-09-10] MEDS: diazePAM 5 MG TABLET PO SCH ×3 (01:13→16:12)
[2019-09-10] MEDS ORDERED: LORazepam 1 MG TABLET PO SCH (05:00)
[2019-09-10] MEDS: PRENATAL VITAMINS W/ FOLIC ACID TABLET (FP) PO SCH (09:52)
[2019-09-10] MEDS: NICOTINE 21 MG/24 HOURS TOPICAL PATCH TD SCH (09:53)
[2019-09-10] MEDS ORDERED: METHADONE HCL 10 MG TABLET (FOR DETOX USE ONLY) PO ONE (10:00)
--- NOTE | 2019-09-10 11:23 | PN ---
[facility] CIWA - CIWA Score Nausea/Vomitin-No Nausea/No Vomiting Muscle Tremors: 2 Anxiety: 3 Agitation: 2 Paroxysmal Sweats: 1-Minimal Palms Moist Orientation: 0-Oriented Tacttile Disturbances: 0-None Auditory Disturbances: 0-None Visual Disturbances: 0-None Headache: 0-None Present CIWA-Ar Total Score: 8 [facility] COWS - Scale Resting Pulse: 0= [place] 80 or Below Sweatin= Chills/Flushing Restless Observation: 0= Sits Still Pupil Size: 1= Pupils >than Normal Bone or Joint Aches: 1= Mild Discomfort Runny Nose/ Eye Tearin= Nasal Congestion GI Upset > 30mins: 1= Stomach Cramp Tremor Observation of Outstretched Hands: 1= Tremor [place], Not Seen Yawning Observation: 1= 1-2x During Session Anxiety or Irritability: 1=Feels Anxious/Irritable Goose Flesh Skin: 0=Smooth Skin COWS Score: 8 S Progress Note (SOAP) Subjective: 18 years old male admitted on 09/08/19 for alcohol and opiate withdrawal sx management treating with valium and methadone detox regimen c/o trouble fall a sleep feeling tired belsomra 5 mg po x 1 hs Objective: 09/10/19 11:21 Vital Signs Temperature 97.2 F L 09/10/19 09:14 Pulse Rate 70 09/10/19 09:14 Respiratory Rate 18 09/10/19 09:14 Blood Pressure 99/63 09/10/19 09:14 O2 Sat by Pulse Oximetry (%) Laboratory Last Values WBC 5.9 K/mm3 (4.0-10.0) 09/09/19 07:00 RBC 4.96 M/mm3 (4.00-5.60) 09/09/19 07:00 Hgb 12.5 GM/dL (11.7-16.9) 09/09/19 07:00 Hct 38.2 % (35.4-49) 09/09/19 07:00 MCV 77.1 fl (80-96) L 09/09/19 07:00 MCH 25.3 pg (25.7-33.7) L 09/09/19 07:00 MCHC 32.8 g/dl (32.0-35.9) 09/09/19 07:00 RDW 16.8 % (11.9-15.9) H 09/09/19 07:00 Plt Count 230 K/MM3 (134-434) 09/09/19 07:00 MPV 9.5 fl (7.5-11.1) 09/09/19 07:00 Sodium 139 mmol/L (136-145) 09/09/19 07:00 Potassium 4.3 mmol/L (3.5-5.1) 09/09/19 07:00 Chloride 103 mmol/L (98-107) 09/09/19 07:00 Carbon Dioxide 29 mmol/L (21-32) 09/09/19 07:00 Anion Gap 7 MMOL/L (8-16) L 09/09/19 07:00 BUN 12.5 mg/dL (7-18) 09/09/19 07:00 Creatinine 0.8 mg/dL (0.55-1.3) 09/09/19 07:00 Est GFR (CKD-EPI)AfAm 149.04 09/09/19 07:00 Est GFR (CKD-EPI)NonAf 128.60 09/09/19 07:00 Random Glucose 88 mg/dL (74-106) 09/09/19 07:00 Calcium 9.1 mg/dL (8.5-10.1) 09/09/19 07:00 Total Bilirubin 0.5 mg/dL (0.2-1) 09/09/19 07:00 AST 100 U/L (15-37) H 09/09/19 07:00 ALT 175 U/L (13-61) H 09/09/19 07:00 Alkaline Phosphatase 107 U/L (45-117) 09/09/19 07:00 Total Protein 6.8 g/dl (6.4-8.2) 09/09/19 07:00 Albumin 3.4 g/dl (3.4-5.0) 09/09/19 07:00 Urine Color Yellow 09/09/19 15:00 Urine Appearance Turbid 09/09/19 15:00 Urine pH >= 9.0 (5.0-8.0) H D 09/09/19 15:00 Ur Specific [place] 1.026 (1.010-1.035) 09/09/19 15:00 Urine Protein Trace (NEGATIVE) 09/09/19 15:00 Urine Glucose (UA) Negative (NEGATIVE) 09/09/19 15:00 Urine Ketones Negative (NEGATIVE) 09/09/19 15:00 Urine Blood Negative (NEGATIVE) 09/09/19 15:00 Urine Nitrite Negative (NEGATIVE) 09/09/19 15:00 Urine Bilirubin Negative (NEGATIVE) 09/09/19 15:00 Urine Urobilinogen 2.0 mg/dL (0.2-1.0) 09/09/19 15:00 Ur Leukocyte Esterase Negative (NEGATIVE) 09/09/19 15:00 RPR Titer Nonreactive (NONREACTIVE) 09/09/19 07:00 lab noted health teaching on alcohol related as elevation Assessment: 09/10/19 11:23 alcohol and opiate withdrawal Plan: valium and methadone regimens
[2019-09-10] MEDS: cloNIDine HCL 0.1 MG TABLET PO PRN ×2 (11:47→18:39)
[2019-09-10] MEDS: IBUPROFEN 400 MG TABLET (FP) PO PRN (16:53)
[2019-09-10] MEDS: hydrOXYzine PAMOATE 25 MG CAPSULE (FP) PO PRN (16:53)
[2019-09-10] MEDS ORDERED: SUVOREXANT 5 MG TABLET PO ONE (22:00)
[2019-09-10] MEDS: THIAMINE HCL 100 MG TABLET (FP) PO SCH (22:26)
[2019-09-10] MEDS: diazePAM 5 MG TABLET PO PRN (22:28)
[2019-09-11] MEDS ORDERED: LORazepam 0.5 MG TABLET PO PRN
[2019-09-11] MEDS ORDERED: LORazepam 0.5 MG TABLET PO SCH (05:00)
[2019-09-11] MEDS: diazePAM 5 MG TABLET PO SCH ×2 (05:20→17:33)
[2019-09-11] MEDS ORDERED: METHADONE HCL 5 MG TABLET (FOR DETOX USE ONLY) ONE (08:22)
[2019-09-11] MEDS ORDERED: METHADONE HCL 10 MG TABLET (FOR DETOX USE ONLY) ONE (08:22)
[2019-09-11] MEDS ORDERED: METHADONE (DETOX) 10 MG, METHADONE (DETOX) 5 MG PO ONE (10:00)
[2019-09-11] MEDS: diazePAM 5 MG TABLET PO PRN ×2 (10:23→19:51)
[2019-09-11] MEDS: PRENATAL VITAMINS W/ FOLIC ACID TABLET (FP) PO SCH (10:23)
[2019-09-11] MEDS: NICOTINE 21 MG/24 HOURS TOPICAL PATCH TD SCH (10:23)
--- NOTE | 2019-09-11 11:07 | PN ---
[facility] CIWA - CIWA Score Nausea/Vomitin-No Nausea/No Vomiting Muscle Tremors: 1-None Visible, but [place] Anxiety: 1-Mildly Anxious Agitation: 1-Slight > Activity Paroxysmal Sweats: 1-Minimal Palms Moist Orientation: 0-Oriented Tacttile Disturbances: 0-None Auditory Disturbances: 0-None Visual Disturbances: 0-None Headache: 0-None Present CIWA-Ar Total Score: 4 [facility] COWS - Scale Resting Pulse: 1= [place] 81-100 Sweatin= No chills or Flushing Restless Observation: 0= Sits Still Pupil Size: 0= Normal to Room Light Bone or Joint Aches: 1= Mild Discomfort Runny Nose/ Eye Tearin= None GI Upset > 30mins: 0= None Tremor Observation of Outstretched Hands: 1= Tremor [place], Not Seen Yawning Observation: 0= None Anxiety or Irritability: 1=Feels Anxious/Irritable Goose Flesh Skin: 0=Smooth Skin COWS Score: 4 S Progress Note (SOAP) Subjective: 18 years old male admitted on 09/08/19 for alcohol and opiate withdrawal sx management treating with valium and methadone detox regimens feeling ok today ate breakfast showered social with peers in day room discuss medication assisted treatment program picking up narcan from pharmacy Objective: 09/11/19 11:09 Vital Signs Temperature 97.6 F 09/11/19 09:27 Pulse Rate 89 09/11/19 09:27 Respiratory Rate 18 09/11/19 09:27 Blood Pressure 106/65 09/11/19 09:27 O2 Sat by Pulse Oximetry (%) Laboratory Last Values WBC 5.9 K/mm3 (4.0-10.0) 09/09/19 07:00 RBC 4.96 M/mm3 (4.00-5.60) 09/09/19 07:00 Hgb 12.5 GM/dL (11.7-16.9) 09/09/19 07:00 Hct 38.2 % (35.4-49) 09/09/19 07:00 MCV 77.1 fl (80-96) L 09/09/19 07:00 MCH 25.3 pg (25.7-33.7) L 09/09/19 07:00 MCHC 32.8 g/dl (32.0-35.9) 09/09/19 07:00 RDW 16.8 % (11.9-15.9) H 09/09/19 07:00 Plt Count 230 K/MM3 (134-434) 09/09/19 07:00 MPV 9.5 fl (7.5-11.1) 09/09/19 07:00 Sodium 139 mmol/L (136-145) 09/09/19 07:00 Potassium 4.3 mmol/L (3.5-5.1) 09/09/19 07:00 Chloride 103 mmol/L (98-107) 09/09/19 07:00 Carbon Dioxide 29 mmol/L (21-32) 09/09/19 07:00 Anion Gap 7 MMOL/L (8-16) L 09/09/19 07:00 BUN 12.5 mg/dL (7-18) 09/09/19 07:00 Creatinine 0.8 mg/dL (0.55-1.3) 09/09/19 07:00 Est GFR (CKD-EPI)AfAm 149.04 09/09/19 07:00 Est GFR (CKD-EPI)NonAf 128.60 09/09/19 07:00 Random Glucose 88 mg/dL (74-106) 09/09/19 07:00 Calcium 9.1 mg/dL (8.5-10.1) 09/09/19 07:00 Total Bilirubin 0.5 mg/dL (0.2-1) 09/09/19 07:00 AST 100 U/L (15-37) H 09/09/19 07:00 ALT 175 U/L (13-61) H 09/09/19 07:00 Alkaline Phosphatase 107 U/L (45-117) 09/09/19 07:00 Total Protein 6.8 g/dl (6.4-8.2) 09/09/19 07:00 Albumin 3.4 g/dl (3.4-5.0) 09/09/19 07:00 Urine Color Yellow 09/09/19 15:00 Urine Appearance Turbid 09/09/19 15:00 Urine pH >= 9.0 (5.0-8.0) H D 09/09/19 15:00 Ur Specific [place] 1.026 (1.010-1.035) 09/09/19 15:00 Urine Protein Trace (NEGATIVE) 09/09/19 15:00 Urine Glucose (UA) Negative (NEGATIVE) 09/09/19 15:00 Urine Ketones Negative (NEGATIVE) 09/09/19 15:00 Urine Blood Negative (NEGATIVE) 09/09/19 15:00 Urine Nitrite Negative (NEGATIVE) 09/09/19 15:00 Urine Bilirubin Negative (NEGATIVE) 09/09/19 15:00 Urine Urobilinogen 2.0 mg/dL (0.2-1.0) 09/09/19 15:00 Ur Leukocyte Esterase Negative (NEGATIVE) 09/09/19 15:00 RPR Titer Nonreactive (NONREACTIVE) 09/09/19 07:00 lab noted Assessment: 09/11/19 11:10 alcohol and opiate withdrawal sx Plan: valium and methadone regimens
[2019-09-11] MEDS: hydrOXYzine PAMOATE 25 MG CAPSULE (FP) PO PRN ×2 (12:05→19:52)
[2019-09-11] MEDS: IBUPROFEN 400 MG TABLET (FP) PO PRN (15:44)
[2019-09-11] MEDS: MELATONIN 5 MG TABLETS PO PRN (22:34)
[2019-09-11] MEDS: THIAMINE HCL 100 MG TABLET (FP) PO SCH (22:34)
[2019-09-12] MEDS ORDERED: diazePAM 5 MG TABLET PO ONE (05:00)
[2019-09-12] MEDS ORDERED: LORazepam 0.5 MG TABLET PO ONE (05:00)
[2019-09-12] MEDS: hydrOXYzine PAMOATE 25 MG CAPSULE (FP) PO PRN ×3 (09:03→23:04)
[2019-09-12] MEDS: PRENATAL VITAMINS W/ FOLIC ACID TABLET (FP) PO SCH (09:03)
[2019-09-12] MEDS: NICOTINE 21 MG/24 HOURS TOPICAL PATCH TD SCH (09:03)
[2019-09-12] MEDS: IBUPROFEN 400 MG TABLET (FP) PO PRN (09:04)
[2019-09-12] MEDS ORDERED: METHADONE HCL 10 MG TABLET (FOR DETOX USE ONLY) PO ONE (10:00)
--- NOTE | 2019-09-12 12:03 | PN ---
[facility] CIWA - CIWA Score Nausea/Vomitin-No Nausea/No Vomiting Muscle Tremors: None Anxiety: 2 Agitation: 0-Normal Activity Paroxysmal Sweats: 2 Orientation: 0-Oriented Tacttile Disturbances: 0-None Auditory Disturbances: 0-None Visual Disturbances: 0-None Headache: 0-None Present CIWA-Ar Total Score: 4 [facility] COWS - Scale Resting Pulse: 0= [place] 80 or Below Sweatin= No chills or Flushing Restless Observation: 0= Sits Still Pupil Size: 0= Normal to Room Light Bone or Joint Aches: 1= Mild Discomfort Runny Nose/ Eye Tearin= None GI Upset > 30mins: 0= None Tremor Observation of Outstretched Hands: 0= None Yawning Observation: 0= None Anxiety or Irritability: 2=Irritable/Anxious Goose Flesh Skin: 0=Smooth Skin COWS Score: 3 [facility] Progress Note (SOAP) Subjective: c/o mild withdrawal symptoms. Objective: Vital Signs 09/12/19 09/12/19 06:35 09:16 Temperature 97.0 F L 97.8 F Pulse Rate 54 L 105 H Respiratory 18 18 Rate Blood Pressure 98/52 L 115/70 Laboratory Last Values WBC 5.9 K/mm3 (4.0-10.0) 09/09/19 07:00 RBC 4.96 M/mm3 (4.00-5.60) 09/09/19 07:00 Hgb 12.5 GM/dL (11.7-16.9) 09/09/19 07:00 Hct 38.2 % (35.4-49) 09/09/19 07:00 MCV 77.1 fl (80-96) L 09/09/19 07:00 MCH 25.3 pg (25.7-33.7) L 09/09/19 07:00 MCHC 32.8 g/dl (32.0-35.9) 09/09/19 07:00 RDW 16.8 % (11.9-15.9) H 09/09/19 07:00 Plt Count 230 K/MM3 (134-434) 09/09/19 07:00 MPV 9.5 fl (7.5-11.1) 09/09/19 07:00 Sodium 139 mmol/L (136-145) 09/09/19 07:00 Potassium 4.3 mmol/L (3.5-5.1) 09/09/19 07:00 Chloride 103 mmol/L (98-107) 09/09/19 07:00 Carbon Dioxide 29 mmol/L (21-32) 09/09/19 07:00 Anion Gap 7 MMOL/L (8-16) L 09/09/19 07:00 BUN 12.5 mg/dL (7-18) 09/09/19 07:00 Creatinine 0.8 mg/dL (0.55-1.3) 09/09/19 07:00 Est GFR (CKD-EPI)AfAm 149.04 09/09/19 07:00 Est GFR (CKD-EPI)NonAf 128.60 09/09/19 07:00 Random Glucose 88 mg/dL (74-106) 09/09/19 07:00 Calcium 9.1 mg/dL (8.5-10.1) 09/09/19 07:00 Total Bilirubin 0.5 mg/dL (0.2-1) 09/09/19 07:00 AST 100 U/L (15-37) H 09/09/19 07:00 ALT 175 U/L (13-61) H 09/09/19 07:00 Alkaline Phosphatase 107 U/L (45-117) 09/09/19 07:00 Total Protein 6.8 g/dl (6.4-8.2) 09/09/19 07:00 Albumin 3.4 g/dl (3.4-5.0) 09/09/19 07:00 Urine Color Yellow 09/09/19 15:00 Urine Appearance Turbid 09/09/19 15:00 Urine pH >= 9.0 (5.0-8.0) H D 09/09/19 15:00 Ur Specific [place] 1.026 (1.010-1.035) 09/09/19 15:00 Urine Protein Trace (NEGATIVE) 09/09/19 15:00 Urine Glucose (UA) Negative (NEGATIVE) 09/09/19 15:00 Urine Ketones Negative (NEGATIVE) 09/09/19 15:00 Urine Blood Negative (NEGATIVE) 09/09/19 15:00 Urine Nitrite Negative (NEGATIVE) 09/09/19 15:00 Urine Bilirubin Negative (NEGATIVE) 09/09/19 15:00 Urine Urobilinogen 2.0 mg/dL (0.2-1.0) 09/09/19 15:00 Ur Leukocyte Esterase Negative (NEGATIVE) 09/09/19 15:00 RPR Titer Nonreactive (NONREACTIVE) 09/09/19 07:00 Labs noted. Assessment: 09/12/19 12:02 AOX3, in no acute respiratory distress. Full ROM, ambulating in the unit. mild Withdrawal symptoms. For d/c tomorrow. Plan: continue detox. D/C in AM.
[2019-09-12] MEDS: MELATONIN 5 MG TABLETS PO PRN (23:04)
[2019-09-12] MEDS: THIAMINE HCL 100 MG TABLET (FP) PO SCH (23:04)
[2019-09-13] MEDS ORDERED: METHADONE HCL 5 MG TABLET (FOR DETOX USE ONLY) PO ONE (06:00)
[2019-09-13 09:16] VITALS: BP 110/74; PULSE 71; TEMP 97.4
[2019-09-13] MEDS: PRENATAL VITAMINS W/ FOLIC ACID TABLET (FP) PO SCH (10:15)
[2019-09-13] MEDS: hydrOXYzine PAMOATE 25 MG CAPSULE (FP) PO PRN (10:16)
[2019-09-13] MEDS: IBUPROFEN 400 MG TABLET (FP) PO PRN (10:16)
[2019-09-13] MEDS: NICOTINE 21 MG/24 HOURS TOPICAL PATCH TD SCH (10:17)
--- NOTE | 2019-09-13 14:02 | DS ---
[facility] Detox Discharge Summary Admission Date: 09/08/19 Discharge Date: 09/13/19 - History Present History: Alcohol Dependence, Cannabis Dependence, Cocaine Dependence, Opioid Dependence Additional Comments: Pt is medically cleared and discharged today to [facility] for continued management. Pt completed the detox protocol. Pt is encouraged to follow with the Rehab protocol. Pt verbalized understanding of the information given. Pt is AOX3 and in no acute respiratory distress. Pertinent Past History: h/o heroin, alcohol, cocaine, and cannabis use disorder. - Physical Exam Results Vital Signs: Vital Signs Temperature 97.4 F L 09/13/19 09:15 Pulse Rate 71 09/13/19 09:15 Respiratory Rate 20 09/13/19 09:15 Blood Pressure 110/74 09/13/19 09:15 O2 Sat by Pulse Oximetry (%) Vital Signs 09/13/19 09/13/19 06:24 09:15 Temperature 97 F L 97.4 F L Pulse Rate 62 71 Respiratory 16 20 Rate Blood Pressure 103/54 L 110/74 Lab Results WBC 5.9 K/mm3 (4.0-10.0) 09/09/19 07:00 RBC 4.96 M/mm3 (4.00-5.60) 09/09/19 07:00 Hgb 12.5 GM/dL (11.7-16.9) 09/09/19 07:00 Hct 38.2 % (35.4-49) 09/09/19 07:00 MCV 77.1 fl (80-96) L 09/09/19 07:00 MCHC 32.8 g/dl (32.0-35.9) 09/09/19 07:00 RDW 16.8 % (11.9-15.9) H 09/09/19 07:00 Plt Count 230 K/MM3 (134-434) 09/09/19 07:00 Sodium 139 mmol/L (136-145) 09/09/19 07:00 Potassium 4.3 mmol/L (3.5-5.1) 09/09/19 07:00 Chloride 103 mmol/L (98-107) 09/09/19 07:00 Carbon Dioxide 29 mmol/L (21-32) 09/09/19 07:00 Anion Gap 7 MMOL/L (8-16) L 09/09/19 07:00 BUN 12.5 mg/dL (7-18) 09/09/19 07:00 Creatinine 0.8 mg/dL (0.55-1.3) 09/09/19 07:00 Random Glucose 88 mg/dL (74-106) 09/09/19 07:00 Calcium 9.1 mg/dL (8.5-10.1) 09/09/19 07:00 Labs noted. Pertinent Admission Physical Exam Findings: withdrawal symptoms. - Treatment Hospital Course: Detox Protocol Followed, Detoxed Safely, Responded well, Discharged Condition Good, Rehab Referral Accepted Patient has Accepted a Rehab Referral to: [facility]. - Medication Discharge Medications: Ambulatory Orders Amox-Tr/K Cl [Augmentin 875-125mg Tablet -] 1 tab PO BID@0800,1730 #14 tablet Bacitracin - [Bacitracin Topical Ointment -] 1 applic TP DAILY #1 tube 08/17/19 Naloxone HCl [Narcan] 4 mg NS ASDIR PRN #1 spray 09/11/19 - Diagnosis (1) Alcohol dependence with uncomplicated withdrawal Status: Acute (2) IVDU (intravenous drug user) Status: Acute (3) Opioid dependence with withdrawal Status: Acute (4) Cannabis abuse Status: Chronic (5) Cocaine dependence Status: Chronic Qualifiers: Substance use status: in withdrawal Qualified Code(s): F14.23 - Cocaine dependence with withdrawal (6) Nicotine dependence Status: Chronic Qualifiers: Nicotine product type: cigarettes Substance use status: in withdrawal Qualified Code(s): F17.213 - Nicotine dependence, cigarettes, with withdrawal - AMA Did Patient Leave Against Medical Advice: No
== END 2019-09-13 12:23 | disposition other institution (70) | DRG 773 ==
LOC: YASAS 16:00 → Y3N 19:59
PROVIDERS: ADMIT Allergy & Immunology; ATTEND Allergy & Immunology
PROC: HZ2ZZZZ Detoxification Services for Substance Abuse Treatment (ICD-10-PCS; principal; 2019-09-08)
DX: F11.23 Opioid dependence with withdrawal (principal); F10.230 Alcohol dependence with withdrawal, uncomplicated; F14.23 Cocaine dependence with withdrawal; F12.10 Cannabis abuse, uncomplicated; F17.213 Nicotine dependence, cigarettes, with withdrawal; F19.24 Other psychoactive substance dependence with psychoactive substance-induced mood disorder; R94.5 Abnormal results of liver function studies; Z91.19 Patient's noncompliance with other medical treatment and regimen; Z91.013 Allergy to seafood; Z88.8 Allergy status to other drugs, medicaments and biological substances; Z59.0 Homelessness
CPT/HCPCS: 36415; 80053; 81003; 85027; 86593; J0735

== ENCOUNTER 2019-09-13 12:35 | Inpatient (IN) | payer OTHER ==
[2019-09-13 13:14] VITALS: BP 124/68; PULSE 97; TEMP 97.4
[2019-09-13] MEDS ORDERED: LOPERAMIDE HCL 2 MG CAPSULE PO PRN (14:14)
[2019-09-13] MEDS ORDERED: ACETAMINOPHEN 325 MG TABLET (FP) PO PRN (14:14)
[2019-09-13] MEDS ORDERED: MAG HYDROX/AL HYDROX/SIMETH 30 ML UNIT-DOSE CUP PO PRN (14:14)
[2019-09-13] MEDS ORDERED: guaiFENesin 200 MG/10 ML 10 ML UNIT-DOSE CUPS PO PRN (14:14)
[2019-09-13] MEDS ORDERED: MENTHOL/PHENOL 1 EACH UD MM PRN (14:14)
[2019-09-13] MEDS ORDERED: P-EPHED 60MG/TRIPROLIDI 2.5MG TABLET PO PRN (14:14)
[2019-09-13] MEDS ORDERED: IBUPROFEN 400 MG TABLET (FP) PO PRN (14:14)
[2019-09-13] MEDS ORDERED: MAGNESIUM HYDROX 2400MG/30ML ORAL SUSPENSION 30 ML CUP PO PRN (14:14)
--- NOTE | 2019-09-13 14:14 | HP ---
[facility] Rehab Assess/Revision - Admission History Admitted to Rehab from: [facility] Date of Admission to Rehab: 09/13/2019 - Vital signs Vital Signs: Vital Signs Period Temp Pulse Resp BP Sys/Hawkins Pulse Ox Last 24 Hr 97.4 F 97 20 124/68 Vital Signs 09/13/19 13:13 Temperature 97.4 F L Pulse Rate 97 H Respiratory 20 Rate Blood Pressure 124/68 - Findings Detox History & Physical reviewed: Yes Concur with findings: Yes Inpatient Rehab Admission - Rehab Decision to Admit Inpatient rehab admission?: Yes - Initial Determination Are CD services needed?: Yes Free of communicable disease: Yes Not in need of hospitalization: Yes - Rehab Admission Criteria Previous failed treatment: Yes Poor recovery environment: Yes Comorbidities: Yes Lacks judgement: No Patient is meeting Inpatient Rehab admission criteria:: Yes
[2019-09-13] MEDS ORDERED: hydrOXYzine PAMOATE 25 MG CAPSULE (FP) PO PRN (14:16)
--- NOTE | 2019-09-13 17:18 | PN ---
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
--- NOTE | 2019-09-13 17:28 | DS ---
[facility] Rehab Discharge Summary - [facility] Rehab Discharge Summary Admission Date: 09/13/19 Discharge Date: 09/13/19 - History Present History: Alcohol dependence, Cannabis dependence, Cocaine dependence, Opioid dependence Pertinent Past History: ivdu - Discharge Physical Exam Vital Signs: Vital Signs Temperature 97.4 F L 09/13/19 13:13 Pulse Rate 97 H 09/13/19 13:13 Respiratory Rate 09/13/19 13:13 Blood Pressure 124/68 09/13/19 13:13 O2 Sat by Pulse Oximetry (%) Pertinent Admission Physical Exam Findings: Vital Signs Temperature 97.4 F L 09/13/19 13:13 Pulse Rate 97 H 09/13/19 13:13 Respiratory Rate 09/13/19 13:13 Blood Pressure 124/68 09/13/19 13:13 O2 Sat by Pulse Oximetry (%) - Treatment Discharge Condition: Discharge condition good - Medication Discharge Medications: Ambulatory Orders Amox-Tr/K Cl [Augmentin 875-125mg Tablet -] 1 tab PO BID@0800,1730 #14 tablet Bacitracin - [Bacitracin Topical Ointment -] 1 applic TP DAILY #1 tube 08/17/19 Naloxone HCl [Narcan] 4 mg NS ASDIR PRN #1 spray 09/11/19 - Discharge Instructions Diet, activity, other medical instructions: Diet: Activity: Other medical instructions: - Diagnosis (1) IVDU (intravenous drug user) Current Visit: No Status: Acute (2) Weight loss Current Visit: No Status: Acute (3) Cannabis abuse Current Visit: No Status: Chronic (4) Cocaine dependence Current Visit: No Status: Chronic Qualifiers: (5) Heroin dependence Current Visit: Yes Status: Acute - AMA Did Patient Leave Against Medical Advice: Yes Additional Comments: patient signed release ama,will go to his mother's apartment, advise to call 911 if not feeling well,left he unit in good and stable condition , transportation provided by security with [employer], seen by counselor,nursing supervisor corduroy cutting informed by nurse
[2019-09-13] MEDS ORDERED: MELATONIN 5 MG TABLETS PO PRN (22:00)
[2019-09-13] MEDS ORDERED: THIAMINE HCL 100 MG TABLET (FP) PO SCH (22:00)
[2019-09-14] MEDS ORDERED: PRENATAL VITAMINS W/ FOLIC ACID TABLET (FP) PO SCH (10:00)
[2019-09-14] MEDS ORDERED: NICOTINE 21 MG/24 HOURS TOPICAL PATCH TD SCH (10:00)
== END 2019-09-13 15:10 | disposition left against medical advice (07) | DRG 770 ==
LOC: YASAS 12:35 → Y3W 12:37
PROVIDERS: ADMIT Neuromusculoskeletal Medicine & OMM; ATTEND Neuromusculoskeletal Medicine & OMM
PROC: HZ42ZZZ Group Counseling for Substance Abuse Treatment, Cognitive-Behavioral (ICD-10-PCS; principal; 2019-09-13)
DX: F11.20 Opioid dependence, uncomplicated (principal); F10.20 Alcohol dependence, uncomplicated; F14.20 Cocaine dependence, uncomplicated; F12.10 Cannabis abuse, uncomplicated; F17.210 Nicotine dependence, cigarettes, uncomplicated; R94.5 Abnormal results of liver function studies; R63.4 Abnormal weight loss; Z91.013 Allergy to seafood; Z88.8 Allergy status to other drugs, medicaments and biological substances; Z59.0 Homelessness

== ENCOUNTER 2019-11-17 20:12 | Inpatient (IN) | payer OTHER ==
--- NOTE | 2019-11-17 21:49 | BHS.RME ---
Substance Use & Tx History - Last Treatment Where was last treatment: Detox COWS - Scale Resting Pulse: 0= [place] 80 or Below Sweatin=Flushed/Facial Moisture Restless Observation: 1= Difficult to Sit Still Pupil Size: 1= Pupils >than Normal Bone or Joint Aches: 4=Acute Joint/Muscle Pain Runny Nose/ Eye Tearin= Nasal Congestion GI Upset > 30mins: 2= Nausea/Diarrhea (diarrhea x 2) Tremor Observation: 2= Slight Tremor Visible Yawning Observation: 1= 1-2x During Session Anxiety or Irritability: 2=Irritable/Anxious Goose Flesh Skin: 0=Smooth Skin COWS Score: 16 CIWA Nausea/Vomitin-Mild Nausea/No Vomiting Muscle Tremors: 3 Anxiety: 3 Agitation: 3 Paroxysmal Sweats: 2 Orientation: 1-Uncertain about Date Tacttile Disturbances: 0-None Auditory Disturbances: 0-None Visual Disturbances: 0-None Headache: 3-Moderate CIWA-Ar Total Score: 16
--- NOTE | 2019-11-17 21:55 | HP ---
COWS - Scale Resting Pulse: 0= [place] 80 or Below Sweatin=Flushed/Facial Moisture Restless Observation: 1= Difficult to Sit Still Pupil Size: 1= Pupils >than Normal Bone or Joint Aches: 4=Acute Joint/Muscle Pain Runny Nose/ Eye Tearin= Nasal Congestion GI Upset > 30mins: 2= Nausea/Diarrhea (diarrhea x 2) Tremor Observation: 2= Slight Tremor Visible Yawning Observation: 1= 1-2x During Session Anxiety or Irritability: 2=Irritable/Anxious Goose Flesh Skin: 0=Smooth Skin COWS Score: 16 CIWA Score Nausea/Vomitin-Mild Nausea/No Vomiting Muscle Tremors: 3 Anxiety: 3 Agitation: 3 Paroxysmal Sweats: 2 Orientation: 1-Uncertain about Date Tacttile Disturbances: 0-None Auditory Disturbances: 0-None Visual Disturbances: 0-None Headache: 3-Moderate CIWA-Ar Total Score: 16 - Admission Criteria OASAS Guidelines: Admission for Medically Managed Detox: Requires at least one of the followin. CIWA greater than 12 2. Seizures within the past 24 hours 3. Delirium tremens within the past 24 hours 4. Hallucinations within the past 24 hours 5. Acute intervention needed for co occurring medical disorder 6. Acute intervention needed for co occurring psychiatric disorder 7. Severe withdrawal that cannot be handled at a lower level of care (continued vomiting, continued diarrhea, abnormal vital signs) requiring intravenous medication and/or fluids 8. Admitting History and Physical - Smoking History Smoking history: Current every day smoker Have you smoked in the past 12 months: Yes Aproximately how many cigarettes per day: 10 - Alcohol/Substance Use Hx Alcohol Use: Yes - Social History ADL: Independent History of Recent Travel: No Admission [facility] Chief Complaint: Seeking admission to detox from alcohol and heroin Allergies/Adverse Reactions: Allergies Allergy/AdvReac Type Severity Reaction Status Date / Time Fish Containing Products Allergy Verified 11/17/19 22:36 chlordiazepoxide AdvReac Mild Verified 11/17/19 22:36 [From Librium] History of Present Illness: 19 years old male with 5 years of alcohol dependence and 4 years of opioid dependence is seeking admission to detox. Patient reports medical history of alcohol related seizure and psych. history of ADHD, anxiety and bipolar disorder. He denies suicide attempt and suicidal ideation at this time. Patient reports + eye coconut jelly roller and blackouts (last blackout was in August 2019). Exam Limitations: No Limitations - Ebola screening Have you traveled outside of the country in the last 21 days: No Have you had contact with anyone from an Ebola affected area: No Do you have a fever: No - Review of Systems Constitutional: Chills, Loss of Appetite, Malaise, Night Sweats EENT: reports: Nose Congestion Respiratory: reports: No Symptoms reported Cardiac: reports: No Symptoms Reported GI: reports: Diarrhea, Nausea, Poor Fluid Intake, Abdominal cramping : reports: No Symptoms Reported Musculoskeletal: reports: Back Pain, Joint Pain, Muscle Pain Integumentary: reports: Dryness, Flushing Neuro: reports: Headache, Tremors Endocrine: reports: No Symptoms Reported Hematology: reports: No Symptoms Reported Psychiatric: reports: Anxious Other Systems: Reviewed and Negative Patient History - Patient Medical History Hx Anemia: No Hx Asthma: No Hx Chronic Obstructive Pulmonary Disease (COPD): No Hx Cancer: No Hx Cardiac Disorders: No Hx Congestive Heart Failure: No Hx Hypertension: No Hx Hypercholesterolemia: No Hx Pacemaker: No HX Cerebrovascular Accident: No Hx Seizures: Yes (Alcohol related seizure. Not on medication) Hx Dementia: No Hx Diabetes: No Hx Gastrointestinal Disorders: No Hx Liver Disease: No Hx Genitourinary Disorders: No Hx Sexually Transmitted Disorders: No Hx Renal Disease (ESRD): No Hx Thyroid Disease: No Hx Human Immunodeficiency Virus (HIV): No (Negative 11/26 ) Hx Hepatitis C: No Hx Depression: Yes Hx Suicide Attempt: No (Denies suicidal ideation at this time) Hx Bipolar Disorder: No Hx Schizophrenia: No Other Medical History: Anxiety - Patient Surgical History Past Surgical History: Yes Hx Neurologic Surgery: No Hx Cataract Extraction: No Hx Cardiac Surgery: No Hx Lung Surgery: No Hx Breast Surgery: No Hx Breast Biopsy: No Hx Abdominal Surgery: No Hx Appendectomy: No Hx Cholecystectomy: No Hx Genitourinary Surgery: No Hx Section: No Hx Orthopedic Surgery: No Other Surgical History: tosllectomy at age of 3 years Anesthesia Reaction: No - PPD History Previous Implant?: Yes Documented Results: Negative w/proof Implanted On Prior R Admission?: Yes Date: 01/02/19 Results: 0 MM PPD to be Administered?: No - Reproductive History Patient is a Female of Child Bearing Age (11 -55 yrs old): No (male) - Smoking Cessation Smoking history: Current every day smoker Have you smoked in the past 12 months: Yes Aproximately how many cigarettes per day: 10 Hx Chewing Tobacco Use: No Initiated information on smoking cessation: Yes 'Breaking Loose' booklet given: 11/17/19 - Substance & Tx. History Hx Alcohol Use: Yes Hx Substance Use: Yes Substance Use Type: Alcohol, Marijuana, Opiates Hx Substance Use Treatment: Yes ([facility]) - Substances abused Alcohol Substance route: Oral Frequency: Daily Amount used: 1/2 LITER REJI Age of first use: 10 Date of last use: 11/17/19 Heroin Substance route: Injection Frequency: Daily Amount used: 4 BUNDLES Age of first use: 15 Date of last use: 11/17/19 Marijuana/Hashish Substance route: Smoking Frequency: Daily Amount used: 2 BAGS Age of first use: 9 Date of last use: 11/17/19 Admission Physical Exam [facility] - Physical General Appearance: Yes: Moderate Distress, Tremorous, Irritable, Sweating, Anxious HEENTM: Yes: Within Normal Limits Respiratory: Yes: Lungs Clear, Normal Breath Sounds, No Respiratory Distress Neck: Yes: Within Normal Limits Breast: Yes: Breast Exam Deferred Cardiology: Yes: Within Normal Limits Abdominal: Yes: Normal Bowel Sounds, Soft Genitourinary: Yes: Within Normal Limits Musculoskeletal: Yes: Muscle Pain Extremities: Yes: Tremors Neurological: Yes: Within Normal Limits Integumentary: Yes: Warm, Track Ruano (BOTH HANDS) Lymphatic: Yes: Within Normal Limits - Diagnostic (1) Alcohol dependence with uncomplicated withdrawal Current Visit: Yes Status: Acute (2) IVDU (intravenous drug user) Current Visit: Yes Status: Acute (3) Opioid dependence with withdrawal Current Visit: Yes Status: Acute (4) Cannabis abuse Current Visit: Yes Status: Chronic (5) Nicotine dependence Current Visit: Yes Status: Chronic Qualifiers: Nicotine product type: cigarettes Substance use status: in withdrawal Qualified Code(s): F17.213 - Nicotine dependence, cigarettes, with withdrawal Cleared for Admission [facility] - Detox or Rehab [facility] Level of Care: Medically Managed Detox Regimen/Protocol: Methadone/Valium Claeared for Rehab Admission: No Breathalyzer - Breathalyzer Breathalyzer: 0.007 Urine Drug Screen - Test Device Lot number: [id number] Expiration date: 04/08/21 - Control Is test valid?: Yes - Results Drug screen NEGATIVE: No Urine drug screen results: THC-Marijuana, CHU-Cocaine, FEN-Fentanyl, MOP- Opiates, BZO-Benzodiazepines Inpatient Rehab Admission - Rehab Decision to Admit Inpatient rehab admission?: No
[2019-11-17] MEDS ORDERED: IBUPROFEN 400 MG TABLET (FP) PO PRN (22:35)
[2019-11-17] MEDS ORDERED: MAGNESIUM CITRATE 300 ML BOTTLE PO PRN (22:35)
[2019-11-17] MEDS ORDERED: chlordiazePOXIDE HCL 25 MG CAPSULE PO PRN (22:35)
[2019-11-17] MEDS ORDERED: MENTHOL/PHENOL 1 EACH UD MM PRN (22:35)
[2019-11-17] MEDS ORDERED: cloNIDine HCL 0.1 MG TABLET PO PRN (22:35)
[2019-11-17] MEDS ORDERED: BISMUTH SUBSALICYLATE 524 MG/30 ML UD PO PRN (22:35)
[2019-11-17] MEDS ORDERED: ACETAMINOPHEN 325 MG TABLET (FP) PO PRN ×2 (22:35)
[2019-11-17] MEDS ORDERED: NICOTINE POLACRILEX 2 MG GUM BUC PRN (22:35)
[2019-11-17] MEDS ORDERED: MAG HYDROX/AL HYDROX/SIMETH 30 ML UNIT-DOSE CUP PO PRN (22:35)
[2019-11-17] MEDS ORDERED: ONDANSETRON *ODT* 4 MG TABLET SL ONE (22:35)
[2019-11-17] MEDS ORDERED: MAGNESIUM HYDROX 2400MG/30ML ORAL SUSPENSION 30 ML CUP PO PRN (22:35)
[2019-11-17 22:40] VITALS: BMI 24.2
[2019-11-17] MEDS ORDERED: chlordiazePOXIDE HCL 25 MG CAPSULE PO SCH (23:00)
[2019-11-17] MEDS: diazePAM 5 MG TABLET PO SCH (23:44)
[2019-11-17] MEDS ORDERED: METHADONE HCL 10 MG TABLET (FOR DETOX USE ONLY) PO ONE (23:45)
[2019-11-18] MEDS: diazePAM 5 MG TABLET PO SCH ×3 (05:42→21:06)
[2019-11-18] MEDS: METHOCARBAMOL 500 MG TABLET PO PRN ×3 (05:43→21:07)
[2019-11-18] MEDS ORDERED: hydrOXYzine PAMOATE 25 MG CAPSULE (FP) PO SCH (06:00)
[2019-11-18] MEDS ORDERED: METHADONE HCL 5 MG TABLET (FOR DETOX USE ONLY) ONE (09:54)
[2019-11-18] MEDS ORDERED: METHADONE HCL 10 MG TABLET (FOR DETOX USE ONLY) ONE (09:54)
[2019-11-18] MEDS ORDERED: METHADONE (DETOX) 20 MG, METHADONE (DETOX) 5 MG PO ONE (10:00)
[2019-11-18 10:13] LABS: HEMOGLOBIN 10.4 GM/dL (11.7-16.9); MCH 24.1 pg (25.7-33.7); MCHC 32.4 g/dl (32.0-35.9); MEAN CELL VOLUME 74.5 fl (80-96); MEAN PLT VOLUME 8.7 fl (7.5-11.1); PLATELET COUNT 273 K/MM3 (134-434); RDW 15.3 % (11.9-15.9); WHITE BLOOD COUNT 7.7 K/mm3 (4.0-10.0)
[2019-11-18 10:18] LABS: ALBUMIN 2.9 g/dl (3.4-5.0); BILIRUBIN,TOTAL 0.6 mg/dL (0.2-1); CALCIUM 8.9 mg/dL (8.5-10.1); CREATININE 0.8 mg/dL (0.55-1.3); POTASSIUM 4.1 mmol/L (3.5-5.1); TOT PROT 6.6 g/dl (6.4-8.2)
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
[2019-11-18] MEDS ORDERED: MELATONIN 5 MG TABLETS PO PRN (10:26)
[2019-11-18] MEDS: NICOTINE 21 MG/24 HOURS TOPICAL PATCH TD SCH (10:37)
[2019-11-18] MEDS: PRENATAL VITAMINS W/ FOLIC ACID TABLET (FP) PO SCH (10:37)
[2019-11-18] MEDS: diazePAM 5 MG TABLET PO PRN ×2 (10:40→17:36)
--- NOTE | 2019-11-18 11:03 | EKG ---
Test Reason : Blood Pressure : / mmHG Vent. Rate : 076 BPM Atrial Rate : 076 BPM P-R Int : 128 ms QRS Dur : 088 ms QT Int : 410 ms P-R-T Axes : 031 063 025 degrees QTc Int : 461 ms NORMAL SINUS RHYTHM NORMAL ECG WHEN COMPARED WITH ECG OF 13-AUG-2019 18:51, QT HAS LENGTHENED Confirmed by Jacky Huntley MD ([id number]) on 11/18/2019 11:02:49 AM Referred By: SHARMILA ROSAS Confirmed By:Jacky Huntley MD
--- NOTE | 2019-11-18 11:13 | PN ---
[facility] CIWA - CIWA Score Nausea/Vomitin-No Nausea/No Vomiting Muscle Tremors: 3 Anxiety: 3 Agitation: 3 Paroxysmal Sweats: 2 Orientation: 0-Oriented Tacttile Disturbances: 0-None Auditory Disturbances: 0-None Visual Disturbances: 0-None Headache: 0-None Present CIWA-Ar Total Score: 11 BHS COWS - Scale Resting Pulse: 1= [place] 81-100 Sweatin=Flushed/Facial Moisture Restless Observation: 1= Difficult to Sit Still Pupil Size: 0= Normal to Room Light Bone or Joint Aches: 2= Severe Diffuse Aches Runny Nose/ Eye Tearin= Nasal Congestion GI Upset > 30mins: 0= None Tremor Observation of Outstretched Hands: 2= Slight Tremor Visible Yawning Observation: 2= >3x During Session Anxiety or Irritability: 2=Irritable/Anxious Goose Flesh Skin: 0=Smooth Skin COWS Score: 13 S Progress Note (SOAP) Subjective: sweats shakes anxiety body aches irritable Objective: 11/18/19 11:18 Vital Signs Temperature 97 F L 11/18/19 09:39 Pulse Rate 84 11/18/19 09:39 Respiratory Rate 18 11/18/19 09:39 Blood Pressure 109/70 11/18/19 09:39 O2 Sat by Pulse Oximetry (%) Laboratory Tests 11/18/19 11/18/19 11/18/19 07:45 07:45 07:45 WBC 7.7 RBC 4.30 Hgb 10.4 L Hct 32.0 L D MCV 74.5 L MCH 24.1 L MCHC 32.4 RDW 15.3 Plt Count 273 MPV 8.7 Sodium 139 Potassium 4.1 Chloride 102 Carbon Dioxide 30 Anion Gap 6 L BUN 19.0 H Creatinine 0.8 Est GFR (CKD-EPI)AfAm 148.00 Est GFR (CKD-EPI)NonAf 127.70 Random Glucose 86 Calcium 8.9 Total Bilirubin 0.6 AST 137 H ALT 311 H Alkaline Phosphatase 97 Total Protein 6.6 Albumin 2.9 L RPR Titer Nonreactive labs noted elevated liver enzymes; tylenol d/c] mild how H:H; iron supplement ordered aaox3 ambulating no acute distress Assessment: 11/18/19 11:19 withdrawals Plan: continue detox increase fluids repeat labs iron supplement tid ordered Tylenol d/c
[2019-11-18] MEDS: FERROUS SO4 325 MG TABLET (FP) PO SCH ×2 (12:51→17:35)
[2019-11-18] MEDS: THIAMINE HCL 100 MG TABLET (FP) PO SCH (21:06)
[2019-11-18] MEDS ORDERED: MELATONIN 5 MG TABLETS PO SCH (22:00)
[2019-11-19] MEDS: diazePAM 5 MG TABLET PO PRN ×4 (00:52→20:02)
[2019-11-19] MEDS ORDERED: chlordiazePOXIDE HCL 25 MG CAPSULE PO SCH (05:00)
[2019-11-19] MEDS: diazePAM 5 MG TABLET PO SCH ×2 (06:02→17:26)
[2019-11-19] MEDS: METHOCARBAMOL 500 MG TABLET PO PRN ×3 (06:10→21:53)
[2019-11-19] MEDS: FERROUS SO4 325 MG TABLET (FP) PO SCH ×3 (07:12→17:26)
[2019-11-19] MEDS ORDERED: hydrOXYzine PAMOATE 25 MG CAPSULE (FP) PO PRN (09:50)
[2019-11-19] MEDS ORDERED: METHADONE HCL 10 MG TABLET (FOR DETOX USE ONLY) PO ONE (10:00)
[2019-11-19] MEDS: PRENATAL VITAMINS W/ FOLIC ACID TABLET (FP) PO SCH (10:43)
[2019-11-19] MEDS: NICOTINE 21 MG/24 HOURS TOPICAL PATCH TD SCH (10:43)
[2019-11-19] MEDS ORDERED: hydrOXYzine PAMOATE 50 MG CAPSULE (FP) PO PRN (10:55)
--- NOTE | 2019-11-19 10:59 | PN ---
[facility] CIWA - CIWA Score Nausea/Vomitin-No Nausea/No Vomiting Muscle Tremors: 3 Anxiety: 2 Agitation: 2 Paroxysmal Sweats: 2 Orientation: 0-Oriented Tacttile Disturbances: 0-None Auditory Disturbances: 0-None Visual Disturbances: 0-None Headache: 0-None Present CIWA-Ar Total Score: 9 BHS COWS - Scale Resting Pulse: 0= [place] 80 or Below Sweatin= Chills/Flushing Restless Observation: 1= Difficult to Sit Still Pupil Size: 0= Normal to Room Light Bone or Joint Aches: 2= Severe Diffuse Aches Runny Nose/ Eye Tearin= None GI Upset > 30mins: 0= None Tremor Observation of Outstretched Hands: 1= Tremor [place], Not Seen Yawning Observation: 1= 1-2x During Session Anxiety or Irritability: 2=Irritable/Anxious Goose Flesh Skin: 0=Smooth Skin COWS Score: 8 S Progress Note (SOAP) Subjective: sweats shakes interrupted sleep body aches insomnia restless irritable Objective: 11/19/19 10:57 Vital Signs Temperature 98.1 F 11/19/19 08:44 Pulse Rate 72 11/19/19 08:44 Respiratory Rate 18 11/19/19 08:44 Blood Pressure 115/64 11/19/19 08:44 O2 Sat by Pulse Oximetry (%) Laboratory Tests 11/18/19 11/18/19 11/18/19 07:45 07:45 07:45 WBC 7.7 RBC 4.30 Hgb 10.4 L Hct 32.0 L D MCV 74.5 L MCH 24.1 L MCHC 32.4 RDW 15.3 Plt Count 273 MPV 8.7 Sodium 139 Potassium 4.1 Chloride 102 Carbon Dioxide 30 Anion Gap 6 L BUN 19.0 H Creatinine 0.8 Est GFR (CKD-EPI)AfAm 148.00 Est GFR (CKD-EPI)NonAf 127.70 Random Glucose 86 Calcium 8.9 Total Bilirubin 0.6 AST 137 H ALT 311 H Alkaline Phosphatase 97 Total Protein 6.6 Albumin 2.9 L RPR Titer Nonreactive labs noted repeated labs ordered tylenol d/c aaox3 ambulating no acute distress Assessment: 11/19/19 10:58 withdrawals Plan: continue detox visitril 50mg prn trazadone 50mg qhs increase fluids f/u repeated labs
[2019-11-19] MEDS ORDERED: cloNIDine HCL 0.1 MG TABLET PO ONE (21:09)
--- NOTE | 2019-11-19 21:11 | PN ---
[facility] Progress Note Note: pt w/ c/o W/D symptoms Vital Signs - 24 hr 11/19/19 11/19/19 11/19/19 00:53 01:12 05:55 Temperature 98.0 F 98.3 F 98.1 F Pulse Rate 82 80 71 Respiratory 18 18 18 Rate Blood Pressure 134/62 127/70 105/60 11/19/19 11/19/19 08:44 16:43 Temperature 98.1 F 98 F Pulse Rate 72 82 Respiratory 18 18 Rate Blood Pressure 115/64 116/69 P : Clonidine x once
[2019-11-19] MEDS: THIAMINE HCL 100 MG TABLET (FP) PO SCH (21:59)
[2019-11-19] MEDS ORDERED: traZODone HCL 50 MG TABLET (FP) PO SCH (22:00)
[2019-11-20] MEDS ORDERED: chlordiazePOXIDE HCL 10 MG CAPSULE PO PRN
[2019-11-20] MEDS ORDERED: chlordiazePOXIDE HCL 10 MG CAPSULE PO SCH (05:00)
[2019-11-20] MEDS ORDERED: diazePAM 5 MG TABLET PO ONE (06:00)
[2019-11-20] MEDS: METHOCARBAMOL 500 MG TABLET PO PRN (06:55)
[2019-11-20] MEDS: FERROUS SO4 325 MG TABLET (FP) PO SCH ×3 (07:08→17:32)
[2019-11-20] MEDS ORDERED: METHADONE HCL 5 MG TABLET (FOR DETOX USE ONLY) ONE (09:23)
[2019-11-20] MEDS ORDERED: METHADONE HCL 10 MG TABLET (FOR DETOX USE ONLY) ONE (09:23)
[2019-11-20] MEDS ORDERED: METHADONE (DETOX) 10 MG, METHADONE (DETOX) 5 MG PO ONE (10:00)
[2019-11-20 10:23] LABS: BASO % 0.5 % (0-2.0); HEMATOCRIT 36.8 % (35.4-49); LYMPH % 40.7 % (8-40); MCH 24.4 pg (25.7-33.7); MCHC 32.5 g/dl (32.0-35.9); MEAN CELL VOLUME 74.9 fl (80-96); MEAN PLT VOLUME 9.1 fl (7.5-11.1); MONO % 12.8 % (3.8-10.2); PLATELET COUNT 308 K/MM3 (134-434); RBC 4.92 M/mm3 (4.00-5.60); RDW 15.4 % (11.9-15.9); WHITE BLOOD COUNT 6.7 K/mm3 (4.0-10.0)
[2019-11-20 10:52] LABS: ALBUMIN 3.2 g/dl (3.4-5.0); BILIRUBIN,TOTAL 0.3 mg/dL (0.2-1); CREATININE 0.7 mg/dL (0.55-1.3); POTASSIUM 4.2 mmol/L (3.5-5.1); TOT PROT 7.4 g/dl (6.4-8.2)
[2019-11-20] MEDS: PRENATAL VITAMINS W/ FOLIC ACID TABLET (FP) PO SCH (11:10)
[2019-11-20] MEDS: NICOTINE 21 MG/24 HOURS TOPICAL PATCH TD SCH (11:11)
--- NOTE | 2019-11-20 11:56 | PN ---
S CIWA - CIWA Score Nausea/Vomitin-No Nausea/No Vomiting Muscle Tremors: 2 Anxiety: 1-Mildly Anxious Agitation: 2 Paroxysmal Sweats: 1-Minimal [place] Moist Orientation: 0-Oriented Tacttile Disturbances: 0-None Auditory Disturbances: 0-None Visual Disturbances: 0-None Headache: 0-None Present CIWA-Ar Total Score: 6 BHS COWS - Scale Resting Pulse: 0= [place] 80 or Below Sweatin= Chills/Flushing Restless Observation: 1= Difficult to Sit Still Pupil Size: 0= Normal to Room Light Bone or Joint Aches: 1= Mild Discomfort Runny Nose/ Eye Tearin= None GI Upset > 30mins: 0= None Tremor Observation of Outstretched Hands: 1= Tremor [place], Not Seen Yawning Observation: 1= 1-2x During Session Anxiety or Irritability: 1=Feels Anxious/Irritable Goose Flesh Skin: 0=Smooth Skin COWS Score: 6 S Progress Note (SOAP) Subjective: tired irritable people keep waking me up agitation Objective: 11/20/19 11:54 Vital Signs Temperature 96 F L 11/20/19 05:40 Pulse Rate 61 11/20/19 05:40 Respiratory Rate 18 11/20/19 05:40 Blood Pressure 95/54 L 11/20/19 05:40 O2 Sat by Pulse Oximetry (%) Laboratory Tests 11/18/19 11/18/19 11/18/19 07:45 07:45 07:45 WBC 7.7 RBC 4.30 Hgb 10.4 L Hct 32.0 L D MCV 74.5 L MCH 24.1 L MCHC 32.4 RDW 15.3 Plt Count 273 MPV 8.7 Absolute Neuts (auto) Neutrophils % Lymphocytes % Monocytes % Eosinophils % Basophils % Nucleated RBC % Sodium 139 Potassium 4.1 Chloride 102 Carbon Dioxide 30 Anion Gap 6 L BUN 19.0 H Creatinine 0.8 Est GFR (CKD-EPI)AfAm 148.00 Est GFR (CKD-EPI)NonAf 127.70 Random Glucose 86 Calcium 8.9 Total Bilirubin 0.6 AST 137 H ALT 311 H Alkaline Phosphatase 97 Total Protein 6.6 Albumin 2.9 L RPR Titer Nonreactive T.pallidum Ab Interpret 03/10/20 03/12/20 03/12/20 07:45 06:00 06:00 WBC 6.7 RBC 4.92 Hgb 12.0 Hct 36.8 MCV 74.9 L MCH 24.4 L MCHC 32.5 RDW 15.4 Plt Count 308 MPV 9.1 Absolute Neuts (auto) 2.8 Neutrophils % 42.0 L Lymphocytes % 40.7 H Monocytes % 12.8 H Eosinophils % 4.0 Basophils % 0.5 Nucleated RBC % 0 Sodium 139 Potassium 4.2 Chloride 104 Carbon Dioxide 28 Anion Gap 8 BUN 15.0 Creatinine 0.7 Est GFR (CKD-EPI)AfAm 156.35 Est GFR (CKD-EPI)NonAf 134.90 Random Glucose 93 Calcium 9.0 Total Bilirubin 0.3 AST 176 H ALT 421 H Alkaline Phosphatase 117 Total Protein 7.4 Albumin 3.2 L RPR Titer T.pallidum Ab Interpret Cancelled BUN and creatinine improved liver enzymes maintain high; will repeat labs encourage pt more water intake. pt in agreement aaox3 ambulating no acute distress Assessment: 11/20/19 11:55 withdrawals Plan: continue detox increase fluids will repeat lab
[2019-11-20] MEDS: diazePAM 5 MG TABLET PO PRN (17:32)
--- NOTE | 2019-11-20 18:53 | PN ---
[facility] Progress Note Note: Pt crying states that he is in withdrawal from opiates and wants to leave. Pt rec'd 15 mg of methadone today. d/w pt at length about MAT methadone- and that is probably the best option for him. Pt states he will go to [facility] for MAT. Will give pt methadone 5mg now and clonidine/vistaril prn
[2019-11-20] MEDS ORDERED: METHADONE HCL 5 MG TABLET PO ONE (18:55)
[2019-11-20] MEDS ORDERED: cloNIDine HCL 0.1 MG TABLET PO PRN (18:56)
--- NOTE | 2019-11-20 21:16 | DS ---
[facility] Detox Discharge Summary Admission Date: 11/17/19 - Physical Exam Results Vital Signs: Vital Signs Temperature 97.7 F 11/20/19 17:15 Pulse Rate 85 11/20/19 17:15 Respiratory Rate 18 11/20/19 17:15 Blood Pressure 105/65 11/20/19 17:15 O2 Sat by Pulse Oximetry (%) - Medication Discharge Medications: Ambulatory Orders NK [No Known Home Medication] 11/17/19
[2019-11-20 22:13] VITALS: BP 104/52; PULSE 88; TEMP 97.5
[2019-11-21] MEDS ORDERED: chlordiazePOXIDE HCL 10 MG CAPSULE PO SCH (05:00)
[2019-11-21] MEDS ORDERED: METHADONE HCL 10 MG TABLET (FOR DETOX USE ONLY) PO ONE (10:00)
[2019-11-22] MEDS ORDERED: chlordiazePOXIDE HCL 10 MG CAPSULE PO ONE (05:00)
[2019-11-22] MEDS ORDERED: METHADONE HCL 5 MG TABLET (FOR DETOX USE ONLY) PO ONE (06:00)
== END 2019-11-20 21:19 | disposition left against medical advice (07) | DRG 770 ==
LOC: YASAS 20:12 → Y6N 22:59
PROVIDERS: ADMIT Allergy & Immunology; ATTEND Allergy & Immunology
PROC: HZ2ZZZZ Detoxification Services for Substance Abuse Treatment (ICD-10-PCS; principal; 2019-11-17)
DX: F11.23 Opioid dependence with withdrawal (principal); F10.230 Alcohol dependence with withdrawal, uncomplicated; F12.20 Cannabis dependence, uncomplicated; F17.210 Nicotine dependence, cigarettes, uncomplicated; F19.282 Other psychoactive substance dependence with psychoactive substance-induced sleep disorder; F19.24 Other psychoactive substance dependence with psychoactive substance-induced mood disorder; F31.9 Bipolar disorder, unspecified; F90.9 Attention-deficit hyperactivity disorder, unspecified type; R56.9 Unspecified convulsions; Z62.810 Personal history of physical and sexual abuse in childhood; Z56.0 Unemployment, unspecified; Z59.0 Homelessness; Z88.8 Allergy status to other drugs, medicaments and biological substances; Z91.013 Allergy to seafood
CPT/HCPCS: 36415; 80053; 85025; 85027; 86593; 93005; 93010; J0735

== ENCOUNTER 2020-03-07 18:30 | Inpatient (IN) | payer OTHER ==
[2020-03-07 19:05] VITALS: BMI 22.2
--- NOTE | 2020-03-07 19:16 | HP ---
COWS - Scale Resting Pulse: 0= ID 80 or Below Sweatin= Chills/Flushing Restless Observation: 1= Difficult to Sit Still Pupil Size: 1= Pupils >than Normal Bone or Joint Aches: 2= Severe Diffuse Aches Runny Nose/ Eye Tearin= Runny Nose/Eyes GI Upset > 30mins: 1= Stomach Cramp Tremor Observation: 1= Tremor [place], Not Seen Yawning Observation: 4= Several Times/Minute Anxiety or Irritability: 1=Feels Anxious/Irritable Goose Flesh Skin: 3=Piloerection COWS Score: 17 CIWA Score Nausea/Vomitin Muscle Tremors: 2 Anxiety: 2 Agitation: 2 Paroxysmal Sweats: 2 Orientation: 0-Oriented Tacttile Disturbances: 1-Very Mild Itch/Numbness Auditory Disturbances: 0-None Visual Disturbances: 2-Mild Sensitivity Headache: 1-Very Mild CIWA-Ar Total Score: 14 - Admission Criteria OASAS Guidelines: Admission for Medically Managed Detox: Requires at least one of the followin. CIWA greater than 12 2. Seizures within the past 24 hours 3. Delirium tremens within the past 24 hours 4. Hallucinations within the past 24 hours 5. Acute intervention needed for co occurring medical disorder 6. Acute intervention needed for co occurring psychiatric disorder 7. Severe withdrawal that cannot be handled at a lower level of care (continued vomiting, continued diarrhea, abnormal vital signs) requiring intravenous medication and/or fluids 8. Patient presents the following: CIWA greater than 12 Admission Criteria Met: Admission criteria met Admitting History and Physical - Past Surgical History Past Surgical History: Yes: None - Smoking History Smoking history: Current every day smoker Have you smoked in the past 12 months: Yes Aproximately how many cigarettes per day: 20 - Alcohol/Substance Use Hx Alcohol Use: Yes - Social History ADL: Independent History of Recent Travel: No Admission ROS S - HPI Chief Complaint: I wanna stop, I wanna keep fighting for my life Allergies/Adverse Reactions: Allergies Allergy/AdvReac Type Severity Reaction Status Date / Time Fish Containing Products Allergy Verified 01/21/20 17:45 chlordiazepoxide AdvReac Mild Verified 01/21/20 17:45 [From Librium] History of Present Illness: 19 year old male with polysubstance abuse and alcoholism presents for detox. His last treatment was in January of this year.He reports seizure a year ago, OD 2 years ago and several blackouts. Exam Limitations: No Limitations - Ebola screening Have you traveled outside of the country in the last 21 days: No Have you had contact with anyone from an Ebola affected area: No Have you been sick,other than usual withdrawal symptoms: No Do you have a fever: No - Review of Systems Constitutional: Chills, Loss of Appetite, Changes in sleep, Unintentional Wgt. Loss EENT: reports: Blurred Vision, Nose Congestion, Dental Problems (r/t withdrawal) Respiratory: reports: No Symptoms reported Cardiac: reports: No Symptoms Reported GI: reports: Nausea, Poor Fluid Intake, Abdominal cramping : reports: No Symptoms Reported Musculoskeletal: reports: Muscle Pain, Muscle Weakness Integumentary: reports: Sweating Neuro: reports: Headache, Numbness, Tremors, Weakness Endocrine: reports: No Symptoms Reported Hematology: reports: No Symptoms Reported Psychiatric: reports: Anxious, Depressed Other Systems: Reviewed and Negative Patient History - Patient Medical History Hx Anemia: No Hx Asthma: No Hx Chronic Obstructive Pulmonary Disease (COPD): No Hx Cancer: No Hx Cardiac Disorders: No Hx Congestive Heart Failure: No Hx Hypertension: No Hx Hypercholesterolemia: No Hx Pacemaker: No HX Cerebrovascular Accident: No Hx Seizures: Yes (Alcohol related seizure) Hx Dementia: No Hx Diabetes: No Hx Gastrointestinal Disorders: No Hx Liver Disease: No Hx Genitourinary Disorders: No Hx Sexually Transmitted Disorders: No Hx Renal Disease (ESRD): No Hx Thyroid Disease: No Hx Human Immunodeficiency Virus (HIV): No Hx Hepatitis C: No Hx Depression: Yes Hx Suicide Attempt: No Hx Bipolar Disorder: No Hx Schizophrenia: No - Patient Surgical History Past Surgical History: Yes Hx Neurologic Surgery: No Hx Cataract Extraction: No Hx Cardiac Surgery: No Hx Lung Surgery: No Hx Breast Surgery: No Hx Breast Biopsy: No Hx Abdominal Surgery: No Hx Appendectomy: No Hx Cholecystectomy: No Hx Genitourinary Surgery: No Hx Section: No Hx Orthopedic Surgery: No Other Surgical History: tonsillectomy at age of 3 years Anesthesia Reaction: No - PPD History Previous Implant?: Yes Documented Results: Negative w/proof Implanted On Prior R Admission?: Yes Date: 01/23/20 Results: 0 MM PPD to be Administered?: No - Smoking Cessation Smoking history: Current every day smoker Have you smoked in the past 12 months: Yes Aproximately how many cigarettes per day: 20 Hx Chewing Tobacco Use: No Initiated information on smoking cessation: Yes 'Breaking Loose' booklet given: 03/07/20 - Substance & Tx. History Hx Alcohol Use: Yes Hx Substance Use: Yes Substance Use Type: Heroin, Opiates, Tranquilizers Hx Substance Use Treatment: Yes - Substances abused Alcohol Other (specify): Liqour and beer Substance route: Oral Frequency: Daily Amount used: 1/2 L and 3 big beers Age of first use: 17 Date of last use: 03/06/20 Heroin Substance route: Injection Frequency: Daily Amount used: 2 bundles Age of first use: 16 Date of last use: 03/07/20 Alprazolam (Xanax) Substance route: Oral Frequency: Daily Amount used: 3 bars Age of first use: 17 Date of last use: 03/06/20 Admission Physical Exam S - Vital Signs Vital Signs: Vital Signs - 24 hr 03/07/20 19:02 Temperature 97.5 F L Pulse Rate 62 Respiratory 18 Rate Blood Pressure 105/64 - Physical General Appearance: Yes: Mild Distress, Irritable, Sweating, Anxious HEENTM: Yes: Normocephalic, Normal Voice, LISA, Nasal Congestion Respiratory: Yes: Chest Non-Tender, Lungs Clear, No Respiratory Distress, No Accessory Muscle Use Neck: Yes: No masses,lesions,Nodules, Supple Breast: Yes: Breast Exam Deferred Cardiology: Yes: Regular Rhythm, Regular Rate, S1, S2 Abdominal: Yes: Normal Bowel Sounds, Non Tender, Soft Genitourinary: Yes: Within Normal Limits Back: Yes: Normal Inspection Musculoskeletal: Yes: Muscle Pain, Muscle weakness Extremities: Yes: Non-Tender, Tremors Neurological: Yes: electric organ checker II-XII NML intact, Fully Oriented, Alert, Normal Response Integumentary: Yes: Cold, Clammy, Track [place] Lymphatic: Yes: Within Normal Limits - Diagnostic (1) Alcohol dependence with uncomplicated withdrawal Current Visit: Yes Status: Acute (2) Opioid dependence with withdrawal Current Visit: Yes Status: Acute (3) Sedative, hypnotic or anxiolytic dependence with withdrawal, uncomplicated Current Visit: Yes Status: Acute (4) Nicotine dependence Current Visit: Yes Status: Chronic Qualifiers: Nicotine product type: cigarettes Substance use status: uncomplicated Qualified Code(s): F17.210 - Nicotine dependence, cigarettes, uncomplicated Cleared for Admission [facility] - Detox or Rehab [facility] Level of Care: Medically Managed Detox Regimen/Protocol: Methadone/Valium Claeared for Rehab Admission: No Breathalyzer - Breathalyzer Breathalyzer: 0 Urine Drug Screen - Test Device Lot number: [id number] Expiration date: 05/10/21 - Control Is test valid?: Yes - Results Drug screen NEGATIVE: No Urine drug screen results: THC-Marijuana, AMP-Amphetamines, FEN-Fentanyl, MOP- Opiates, MTD-Methadone, BZO-Benzodiazepines Inpatient Rehab Admission - Rehab Decision to Admit Inpatient rehab admission?: No
[2020-03-07] MEDS ORDERED: ACETAMINOPHEN 325 MG TABLET (FP) PO PRN ×2 (19:27)
[2020-03-07] MEDS ORDERED: MAGNESIUM CITRATE 300 ML BOTTLE PO PRN (19:27)
[2020-03-07] MEDS ORDERED: IBUPROFEN 400 MG TABLET (FP) PO PRN (19:27)
[2020-03-07] MEDS ORDERED: BISMUTH SUBSALICYLATE 524 MG/30 ML UD PO PRN (19:27)
[2020-03-07] MEDS ORDERED: MAG HYDROX/AL HYDROX/SIMETH 30 ML UNIT-DOSE CUP PO PRN (19:27)
[2020-03-07] MEDS ORDERED: NICOTINE POLACRILEX 2 MG GUM BUC PRN (19:27)
[2020-03-07] MEDS ORDERED: MAGNESIUM HYDROX 2400MG/30ML ORAL SUSPENSION 30 ML CUP PO PRN (19:27)
[2020-03-07] MEDS ORDERED: MENTHOL/PHENOL 1 EACH UD MM PRN (19:27)
[2020-03-07] MEDS ORDERED: cloNIDine HCL 0.1 MG TABLET PO PRN (19:27)
[2020-03-07] MEDS ORDERED: METHOCARBAMOL 500 MG TABLET PO PRN (19:27)
[2020-03-07] MEDS ORDERED: METHADONE HCL 10 MG TABLET (FOR DETOX USE ONLY) PO ONE (20:15)
[2020-03-07] MEDS: THIAMINE HCL 100 MG TABLET (FP) PO SCH (21:46)
[2020-03-07] MEDS: MELATONIN 5 MG TABLETS PO SCH (21:46)
[2020-03-07] MEDS: diazePAM 5 MG TABLET PO SCH (21:46)
[2020-03-08] MEDS: diazePAM 5 MG TABLET PO SCH ×3 (05:19→22:07)
[2020-03-08] MEDS ORDERED: QUEtiapine FUMARATE 100 MG TABLET (FP) PO PRN (09:22)
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
[2020-03-08] MEDS ORDERED: hydrOXYzine PAMOATE 50 MG CAPSULE (FP) PO PRN (09:23)
[2020-03-08] MEDS ORDERED: METHADONE HCL 5 MG TABLET (FOR DETOX USE ONLY) ONE (09:30)
[2020-03-08] MEDS ORDERED: METHADONE HCL 10 MG TABLET (FOR DETOX USE ONLY) ONE (09:30)
--- NOTE | 2020-03-08 09:39 | PN ---
[facility] CIWA - CIWA Score Nausea/Vomitin-No Nausea/No Vomiting Muscle Tremors: 3 Anxiety: 3 Agitation: 3 Paroxysmal Sweats: 3 Orientation: 0-Oriented Tacttile Disturbances: 0-None Auditory Disturbances: 0-None Visual Disturbances: 0-None Headache: 0-None Present CIWA-Ar Total Score: 12 [facility] COWS - Scale Resting Pulse: 0= [place] 80 or Below Sweatin= Chills/Flushing Restless Observation: 1= Difficult to Sit Still Pupil Size: 0= Normal to Room Light Bone or Joint Aches: 2= Severe Diffuse Aches Runny Nose/ Eye Tearin= Runny Nose/Eyes GI Upset > 30mins: 1= Stomach Cramp Tremor Observation of Outstretched Hands: 1= Tremor [place], Not Seen Yawning Observation: 2= >3x During Session Anxiety or Irritability: 2=Irritable/Anxious Goose Flesh Skin: 0=Smooth Skin COWS Score: 12 [facility] Progress Note (SOAP) Subjective: sweats shakes body aches interrupted sleep restless Objective: 03/08/20 09:38 Vital Signs Temperature 98.0 F 03/08/20 08:52 Pulse Rate 57 L 03/08/20 08:52 Respiratory Rate 17 03/08/20 08:52 Blood Pressure 101/57 L 03/08/20 08:52 O2 Sat by Pulse Oximetry (%) 97 03/08/20 06:04 labs pending [email or web address] lying in bed no acute distress Assessment: 03/08/20 09:38 withdrawals Plan: continue detox increase fluids pending labs
[2020-03-08] MEDS ORDERED: METHADONE (DETOX) 20 MG, METHADONE (DETOX) 5 MG PO ONE (10:00)
[2020-03-08] MEDS: PRENATAL VITAMINS W/ FOLIC ACID TABLET (FP) PO SCH (10:45)
[2020-03-08] MEDS: NICOTINE 14 MG/24 HOURS TOPICAL PATCH TD SCH (10:47)
[2020-03-08] MEDS: diazePAM 5 MG TABLET PO PRN ×2 (10:48→17:02)
[2020-03-08 11:36] LABS: HEMATOCRIT 35.9 % (35.4-49); HEMOGLOBIN 11.5 GM/dL (11.7-16.9); MCH 23.1 pg (25.7-33.7); MCHC 32.1 g/dl (32.0-35.9); MEAN CELL VOLUME 71.9 fl (80-96); MEAN PLT VOLUME 9.3 fl (7.5-11.1); PLATELET COUNT 284 K/MM3 (134-434); RDW 16.1 % (11.9-15.9); WHITE BLOOD COUNT 7.7 K/mm3 (4.0-10.0)
[2020-03-08 11:51] LABS: ALBUMIN 3.2 g/dl (3.4-5.0); BLOOD UREA NITROGEN 10.1 mg/dL (7-18); CALCIUM 9.2 mg/dL (8.5-10.1); CREATININE 0.7 mg/dL (0.55-1.3); POTASSIUM 4.1 mmol/L (3.5-5.1)
[2020-03-08 11:52] LABS: BILIRUBIN,TOTAL 0.6 mg/dL (0.2-1); TOT PROT 7.6 g/dl (6.4-8.2)
[2020-03-08] MEDS ORDERED: PNEUMOC 13-VAL CONJ-DIP CRM/PF 0.5 ML DISP.SYRIN IM ONE (12:00)
[2020-03-08] MEDS: QUEtiapine FUMARATE 100 MG TABLET (FP) PO SCH (22:07)
[2020-03-08] MEDS: THIAMINE HCL 100 MG TABLET (FP) PO SCH (22:07)
[2020-03-08] MEDS: MELATONIN 5 MG TABLETS PO SCH (23:52)
[2020-03-09] MEDS: diazePAM 5 MG TABLET PO SCH ×2 (06:02→18:16)
--- NOTE | 2020-03-09 09:46 | PN ---
[facility] CIWA - CIWA Score Nausea/Vomitin-No Nausea/No Vomiting Muscle Tremors: 2 Anxiety: 3 Agitation: 2 Paroxysmal Sweats: 3 Orientation: 0-Oriented Tacttile Disturbances: 0-None Auditory Disturbances: 0-None Visual Disturbances: 0-None Headache: 0-None Present CIWA-Ar Total Score: 10 [facility] COWS - Scale Resting Pulse: 0= [place] 80 or Below Sweatin= Chills/Flushing Restless Observation: 1= Difficult to Sit Still Pupil Size: 0= Normal to Room Light Bone or Joint Aches: 1= Mild Discomfort Runny Nose/ Eye Tearin= Nasal Congestion GI Upset > 30mins: 0= None Tremor Observation of Outstretched Hands: 1= Tremor [place], Not Seen Yawning Observation: 1= 1-2x During Session Anxiety or Irritability: 2=Irritable/Anxious Goose Flesh Skin: 0=Smooth Skin COWS Score: 8 [facility] Progress Note (SOAP) Subjective: sweats shakes body aches interrupted sleep irritable agitation nausea stomach ache Objective: 03/09/20 09:42 Vital Signs Temperature 97.8 F 03/09/20 05:44 Pulse Rate 64 03/09/20 05:44 Respiratory Rate 16 03/09/20 05:44 Blood Pressure 105/58 L 03/09/20 05:44 O2 Sat by Pulse Oximetry (%) 99 03/09/20 05:44 Laboratory Tests 03/08/20 03/08/20 03/08/20 08:15 08:15 08:15 WBC 7.7 RBC 5.00 Hgb 11.5 L Hct 35.9 MCV 71.9 L MCH 23.1 L MCHC 32.1 RDW 16.1 H Plt Count 284 D MPV 9.3 Sodium Potassium Chloride Carbon Dioxide Anion Gap BUN Creatinine Est GFR (CKD-EPI)AfAm Est GFR (CKD-EPI)NonAf Random Glucose Calcium Total Bilirubin AST ALT Alkaline Phosphatase Total Protein Albumin Syphilis Serology Non-reactive HIV Ag/Ab Combo Qual Negative 03/08/20 08:15 WBC RBC Hgb Hct MCV MCH MCHC RDW Plt Count MPV Sodium 137 Potassium 4.1 Chloride 102 Carbon Dioxide 30 Anion Gap 5 L BUN 10.1 Creatinine 0.7 Est GFR (CKD-EPI)AfAm 156.35 Est GFR (CKD-EPI)NonAf 134.90 Random Glucose 88 Calcium 9.2 Total Bilirubin 0.6 AST 150 H ALT 309 H Alkaline Phosphatase 99 Total Protein 7.6 Albumin 3.2 L Syphilis Serology HIV Ag/Ab Combo Qual labs noted elevated liver enzymes d/c tylenol repeat labs aaox3 lying in bed no acute distress Assessment: 03/09/20 09:43 withdrawals Plan: continue detox increase fluids tigan prn barbara prn
[2020-03-09] MEDS ORDERED: METHADONE HCL 10 MG TABLET (FOR DETOX USE ONLY) PO ONE (10:00)
[2020-03-09] MEDS ORDERED: MASKS NR ONE (10:14)
[2020-03-09] MEDS: diazePAM 5 MG TABLET PO PRN ×3 (10:22→22:07)
[2020-03-09] MEDS: PRENATAL VITAMINS W/ FOLIC ACID TABLET (FP) PO SCH (10:23)
[2020-03-09] MEDS: NICOTINE 14 MG/24 HOURS TOPICAL PATCH TD SCH (10:23)
[2020-03-09] MEDS: NICOTINE 21 MG/24 HOURS TOPICAL PATCH TD SCH (11:56)
[2020-03-09] MEDS: THIAMINE HCL 100 MG TABLET (FP) PO SCH (22:07)
[2020-03-09] MEDS: QUEtiapine FUMARATE 100 MG TABLET (FP) PO SCH (22:07)
[2020-03-09] MEDS: MELATONIN 5 MG TABLETS PO SCH (23:06)
[2020-03-10] MEDS ORDERED: diazePAM 5 MG TABLET PO ONE (06:00)
[2020-03-10] MEDS ORDERED: METHADONE HCL 10 MG TABLET (FOR DETOX USE ONLY) ONE (08:53)
[2020-03-10] MEDS ORDERED: METHADONE HCL 5 MG TABLET (FOR DETOX USE ONLY) ONE (08:53)
[2020-03-10] MEDS ORDERED: METHADONE (DETOX) 10 MG, METHADONE (DETOX) 5 MG PO ONE (10:00)
--- NOTE | 2020-03-10 10:06 | PN ---
[facility] CIWA - CIWA Score Nausea/Vomitin-No Nausea/No Vomiting Muscle Tremors: 3 Anxiety: 2 Agitation: 3 Paroxysmal Sweats: 1-Minimal Palms Moist Orientation: 0-Oriented Tacttile Disturbances: 0-None Auditory Disturbances: 0-None Visual Disturbances: 0-None Headache: 0-None Present CIWA-Ar Total Score: 9 B[facility] COWS - Scale Resting Pulse: 0= [place] 80 or Below Sweatin= Chills/Flushing Restless Observation: 1= Difficult to Sit Still Pupil Size: 0= Normal to Room Light Bone or Joint Aches: 2= Severe Diffuse Aches Runny Nose/ Eye Tearin= Nasal Congestion GI Upset > 30mins: 1= Stomach Cramp Tremor Observation of Outstretched Hands: 1= Tremor [place], Not Seen Yawning Observation: 1= 1-2x During Session Anxiety or Irritability: 1=Feels Anxious/Irritable Goose Flesh Skin: 0=Smooth Skin COWS Score: 9 [facility] Progress Note (SOAP) Subjective: body aches sweats mild shakes interrupted sleep irritable Objective: 03/10/20 10:05 Vital Signs Temperature 98.8 F 03/10/20 09:02 Pulse Rate 76 03/10/20 09:02 Respiratory Rate 18 03/10/20 09:02 Blood Pressure 122/71 03/10/20 09:02 O2 Sat by Pulse Oximetry (%) 96 03/10/20 05:46 Laboratory Tests 03/08/20 03/08/20 03/08/20 08:15 08:15 08:15 WBC 7.7 RBC 5.00 Hgb 11.5 L Hct 35.9 MCV 71.9 L MCH 23.1 L MCHC 32.1 RDW 16.1 H Plt Count 284 D MPV 9.3 Sodium Potassium Chloride Carbon Dioxide Anion Gap BUN Creatinine Est GFR (CKD-EPI)AfAm Est GFR (CKD-EPI)NonAf Random Glucose Calcium Total Bilirubin AST ALT Alkaline Phosphatase Total Protein Albumin Syphilis Serology Non-reactive COVID-19 (BE) HIV Ag/Ab Combo Qual Negative 03/08/20 03/08/20 08:15 08:16 WBC RBC Hgb Hct MCV MCH MCHC RDW Plt Count MPV Sodium 137 Potassium 4.1 Chloride 102 Carbon Dioxide 30 Anion Gap 5 L BUN 10.1 Creatinine 0.7 Est GFR (CKD-EPI)AfAm 156.35 Est GFR (CKD-EPI)NonAf 134.90 Random Glucose 88 Calcium 9.2 Total Bilirubin 0.6 AST 150 H ALT 309 H Alkaline Phosphatase 99 Total Protein 7.6 Albumin 3.2 L Syphilis Serology COVID-19 (BE) Not detected HIV Ag/Ab Combo Qual repeat labs ordered elevated liver enzymes noted aaox3 ambulating no acute distress Assessment: 03/10/20 10:07 withdrawals Plan: continue detox increase fluids motrin/roboxin prn
--- NOTE | 2020-03-10 10:11 | PN ---
[facility] Progress Note Note: pt states he was walking to get his vitals done and he slipped and fell landing on his right hip. fall was witnessed by staff (nursing services manager). pt did not hit his head or other parts of body. it was witnessed pt had his face mask over his eyes. pt teaching provided on proper face mask wearing. Pt skin assessed, no bruising, no skin breakdown, no tenderness noted. pt is able to move leg freely. offered motrin/tylenol/roboxin/lidocaine patch ordered. encouraged warm compress. pt in agreement. fall protocol initiated.
[2020-03-10] MEDS ORDERED: LIDOCAINE 5% TOPICAL PATCH TP SCH (10:15)
[2020-03-10] MEDS: NICOTINE 21 MG/24 HOURS TOPICAL PATCH TD SCH (10:56)
[2020-03-10] MEDS: PRENATAL VITAMINS W/ FOLIC ACID TABLET (FP) PO SCH (10:57)
[2020-03-10] MEDS: diazePAM 5 MG TABLET PO PRN ×2 (11:00→15:52)
[2020-03-10 17:06] VITALS: BP 125/59; PULSE 88; TEMP 97.3
--- NOTE | 2020-03-10 17:17 | DS ---
[facility] Detox Discharge Summary Admission Date: 03/07/20 Discharge Date: 03/10/20 - History Additional Comments: Patient is being discharged to home. He is medically stable to go home and denies withdrawal symptoms at this time. He is alert and oriented x 3, ambulates without difficulties, in no acute distress and vital signs within his usual norm. Discharge instructions done. Patient is to continue with his scheduled medications and follow up with his PCP as scheduled Pertinent Past History: Alcohol dependence Opioid dependence IVDA HIV Cannabis dependence Benzodiazepine dependence Insomnia Alcohol related seizures Bipolar disorder - Physical Exam Results Vital Signs: Vital Signs Temperature 97.3 F L 03/10/20 16:32 Pulse Rate 88 03/10/20 16:32 Respiratory Rate 18 03/10/20 16:32 Blood Pressure 125/59 L 03/10/20 16:32 O2 Sat by Pulse Oximetry (%) 99 03/10/20 12:37 Laboratory Last Values WBC 7.7 K/mm3 (4.0-10.0) 03/08/20 08:15 RBC 5.00 M/mm3 (4.00-5.60) 03/08/20 08:15 Hgb 11.5 GM/dL (11.7-16.9) L 03/08/20 08:15 Hct 35.9 % (35.4-49) 03/08/20 08:15 MCV 71.9 fl (80-96) L 03/08/20 08:15 MCH 23.1 pg (25.7-33.7) L 03/08/20 08:15 MCHC 32.1 g/dl (32.0-35.9) 03/08/20 08:15 RDW 16.1 % (11.9-15.9) H 03/08/20 08:15 Plt Count 284 K/MM3 (134-434) D 03/08/20 08:15 MPV 9.3 fl (7.5-11.1) 03/08/20 08:15 Sodium 137 mmol/L (136-145) 03/08/20 08:15 Potassium 4.1 mmol/L (3.5-5.1) 03/08/20 08:15 Chloride 102 mmol/L (98-107) 03/08/20 08:15 Carbon Dioxide 30 mmol/L (21-32) 03/08/20 08:15 Anion Gap 5 MMOL/L (8-16) L 03/08/20 08:15 BUN 10.1 mg/dL (7-18) 03/08/20 08:15 Creatinine 0.7 mg/dL (0.55-1.3) 03/08/20 08:15 Est GFR (CKD-EPI)AfAm 156.35 03/08/20 08:15 Est GFR (CKD-EPI)NonAf 134.90 03/08/20 08:15 Random Glucose 88 mg/dL (74-106) 03/08/20 08:15 Calcium 9.2 mg/dL (8.5-10.1) 03/08/20 08:15 Total Bilirubin 0.6 mg/dL (0.2-1) 03/08/20 08:15 AST 150 U/L (15-37) H 03/08/20 08:15 ALT 309 U/L (13-61) H 03/08/20 08:15 Alkaline Phosphatase 99 U/L (45-117) 03/08/20 08:15 Total Protein 7.6 g/dl (6.4-8.2) 03/08/20 08:15 Albumin 3.2 g/dl (3.4-5.0) L 03/08/20 08:15 Syphilis Serology Non-reactive (NONREACTIVE) 03/08/20 08:15 COVID-19 (BE) Not detected (Not Detected) 03/08/20 08:16 HIV Ag/Ab Combo Qual Negative (NEGATIVE) 03/08/20 08:15 Labs reviewwd Pertinent Admission Physical Exam Findings: Opioid withdrawal symptoms Alcohol withdrawal symptoms - Treatment Hospital Course: Detox Protocol Followed, Detoxed Safely, Responded well, Discharged Condition Good - Medication Discharge Medications: Ambulatory Orders Naloxone HCl [Narcan] 4 mg NS ASDIR PRN #1 spray 01/25/20 - Diagnosis (1) Alcohol dependence with uncomplicated withdrawal Status: Chronic (2) Cannabis dependence Status: Chronic (3) Opioid dependence with withdrawal Status: Chronic (4) Sedative, hypnotic or anxiolytic dependence with withdrawal, uncomplicated Status: Chronic (5) ADHD (attention deficit hyperactivity disorder) Status: Chronic (6) Cannabis abuse Status: Chronic (7) HIV (human immunodeficiency virus infection) Status: Chronic (8) IVDU (intravenous drug user) Status: Chronic (9) Insomnia Status: Chronic Qualifiers: Insomnia type: unspecified Qualified Code(s): G47.00 - Insomnia, unspecified (10) Nicotine dependence Status: Chronic Qualifiers: Nicotine product type: cigarettes Substance use status: uncomplicated Qualified Code(s): F17.210 - Nicotine dependence, cigarettes, uncomplicated (11) Alcohol related seizure Status: Suspected (12) History of bipolar disorder Status: Chronic - AMA Did Patient Leave Against Medical Advice: No
[2020-03-10] MEDS ORDERED: LIDOCAINE PATCH REMOVAL MC SCH (22:00)
[2020-03-11] MEDS ORDERED: METHADONE HCL 10 MG TABLET (FOR DETOX USE ONLY) PO ONE (10:00)
[2020-03-12] MEDS ORDERED: METHADONE HCL 5 MG TABLET (FOR DETOX USE ONLY) PO ONE (06:00)
== END 2020-03-10 17:28 | disposition home or self-care (01) | DRG 773 ==
LOC: YASAS 18:30 → Y6N 20:00
PROVIDERS: ADMIT Allergy & Immunology; ATTEND Allergy & Immunology
PROC: HZ2ZZZZ Detoxification Services for Substance Abuse Treatment (ICD-10-PCS; principal; 2020-03-07)
DX: F11.23 Opioid dependence with withdrawal (principal); F10.230 Alcohol dependence with withdrawal, uncomplicated; F13.230 Sedative, hypnotic or anxiolytic dependence with withdrawal, uncomplicated; F12.20 Cannabis dependence, uncomplicated; F17.210 Nicotine dependence, cigarettes, uncomplicated; F31.9 Bipolar disorder, unspecified; F19.282 Other psychoactive substance dependence with psychoactive substance-induced sleep disorder; F19.24 Other psychoactive substance dependence with psychoactive substance-induced mood disorder; F90.9 Attention-deficit hyperactivity disorder, unspecified type; Z21 Asymptomatic human immunodeficiency virus [HIV] infection status; R56.9 Unspecified convulsions; G47.00 Insomnia, unspecified; R74.0 Nonspecific elevation of levels of transaminase and lactic acid dehydrogenase [LDH]; Z62.810 Personal history of physical and sexual abuse in childhood; M25.551 Pain in right hip; W18.39XA Other fall on same level, initial encounter; Y93.01 Activity, walking, marching and hiking; Y92.232 Corridor of hospital as the place of occurrence of the external cause; Y99.8 Other external cause status; Z88.8 Allergy status to other drugs, medicaments and biological substances; Z91.5 Personal history of self-harm; Z91.018 Allergy to other foods
CPT/HCPCS: 36415; 80053; 85027; 86780; 87389; U0003

== ENCOUNTER 2020-04-11 15:41 | Inpatient (IN) | payer OTHER ==
[2020-04-11 17:13] VITALS: BMI 22.2
--- NOTE | 2020-04-11 21:20 | HP ---
COWS - Scale Resting Pulse: 0= TN 80 or Below Sweatin=Flushed/Facial Moisture Restless Observation: 0= Sits Still Pupil Size: 1= Pupils >than Normal Bone or Joint Aches: 4=Acute Joint/Muscle Pain Runny Nose/ Eye Tearin= Runny Nose/Eyes GI Upset > 30mins: 1= Stomach Cramp Tremor Observation: 2= Slight Tremor Visible Yawning Observation: 0= None Anxiety or Irritability: 2=Irritable/Anxious Goose Flesh Skin: 0=Smooth Skin COWS Score: 14 CIWA Score Nausea/Vomitin Muscle Tremors: 3 Anxiety: 3 Agitation: 3 Paroxysmal Sweats: 2 Orientation: 0-Oriented Tacttile Disturbances: 0-None Auditory Disturbances: 0-None Visual Disturbances: 0-None Headache: 3-Moderate CIWA-Ar Total Score: 16 - Admission Criteria OASAS Guidelines: Admission for Medically Managed Detox: Requires at least one of the followin. CIWA greater than 12 2. Seizures within the past 24 hours 3. Delirium tremens within the past 24 hours 4. Hallucinations within the past 24 hours 5. Acute intervention needed for co occurring medical disorder 6. Acute intervention needed for co occurring psychiatric disorder 7. Severe withdrawal that cannot be handled at a lower level of care (continued vomiting, continued diarrhea, abnormal vital signs) requiring intravenous medication and/or fluids 8. Admitting History and Physical - Past Surgical History Past Surgical History: Yes: None - Smoking History Smoking history: Current every day smoker Have you smoked in the past 12 months: Yes Aproximately how many cigarettes per day: 20 - Alcohol/Substance Use Hx Alcohol Use: Yes - Social History ADL: Independent History of Recent Travel: No Admission [facility] Chief Complaint: Heroin and alcohol withdrawal symptoms Allergies/Adverse Reactions: Allergies Allergy/AdvReac Type Severity Reaction Status Date / Time Fish Containing Products Allergy Verified 01/21/20 17:45 chlordiazepoxide AdvReac Mild Verified 01/21/20 17:45 [From Librium] History of Present Illness: 19 years old male with 5 years of opioid dependence and a long history of alcohol dependence is seeking admission to detox. He has been admitted multiple times to [facility] and his last admission was for the period 03/07/2020- 03/10/2020 and he states that he relapsed 12 days post discharge. He reports that he drinks 1 liter of janna, 1 six pack beer and uses 2 bundles of heroin intravenously daily. He reports medical history of HIV+, psych history of bipolar disorder, ADHD, depression, anxiety and denies suicidal ideation at this time. 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 He is unemployed, lives with his mother and denies any legal issues. Exam Limitations: No Limitations - Ebola screening Have you traveled outside of the country in the last 21 days: No Have you had contact with anyone from an Ebola affected area: No Have you been sick,other than usual withdrawal symptoms: No Do you have a fever: No - Review of Systems Constitutional: Chills, Malaise, Night Sweats, Changes in sleep EENT: reports: Sinus Pressure Respiratory: reports: No Symptoms reported Cardiac: reports: No Symptoms Reported GI: reports: Nausea, Poor Appetite, Poor Fluid Intake, Abdominal cramping : reports: No Symptoms Reported Musculoskeletal: reports: Back Pain, Muscle Pain Integumentary: reports: Dryness, Flushing Neuro: reports: Headache, Tremors Endocrine: reports: No Symptoms Reported Hematology: reports: No Symptoms Reported Psychiatric: reports: Mood/Affect Appropiate, Orientated x3, Anxious, Depressed Other Systems: Reviewed and Negative Patient History - Patient Medical History Hx Anemia: No Hx Asthma: No Hx Chronic Obstructive Pulmonary Disease (COPD): No Hx Cancer: No Hx Cardiac Disorders: No Hx Congestive Heart Failure: No Hx Hypertension: No Hx Hypercholesterolemia: No Hx Pacemaker: No HX Cerebrovascular Accident: No Hx Seizures: Yes (Alcohol related seizures) Hx Dementia: No Hx Diabetes: No Hx Gastrointestinal Disorders: No Hx Liver Disease: No Hx Genitourinary Disorders: No Hx Sexually Transmitted Disorders: No Hx Renal Disease (ESRD): No Hx Thyroid Disease: No Hx Human Immunodeficiency Virus (HIV): Yes Hx Hepatitis C: No Hx Depression: No Hx Suicide Attempt: No (denies suicidal ideation at this time) Hx Bipolar Disorder: No Hx Schizophrenia: No - Patient Surgical History Past Surgical History: Yes Hx Neurologic Surgery: No Hx Cataract Extraction: No Hx Cardiac Surgery: No Hx Lung Surgery: No Hx Breast Surgery: No Hx Breast Biopsy: No Hx Abdominal Surgery: No Hx Appendectomy: No Hx Cholecystectomy: No Hx Genitourinary Surgery: No Hx Section: No Hx Orthopedic Surgery: No Other Surgical History: tonsillectomy at age of 3 years Anesthesia Reaction: No - PPD History Previous Implant?: Yes Documented Results: Negative w/proof Implanted On Prior [facility] Admission?: Yes Date: 01/23/20 Results: 0 MM PPD to be Administered?: No - Reproductive History Patient is a Female of Child Bearing Age (11 -55 yrs old): No (Male) - Smoking Cessation Smoking history: Current every day smoker Have you smoked in the past 12 months: Yes Aproximately how many cigarettes per day: 20 Hx Chewing Tobacco Use: No Initiated information on smoking cessation: Yes 'Breaking Loose' booklet given: 04/11/20 - Substance & Tx. History Hx Alcohol Use: Yes Hx Substance Use: Yes Substance Use Type: Alcohol, Heroin, Marijuana Hx Substance Use Treatment: Yes ([facility]) - Substances abused Alcohol Substance route: Oral Frequency: Daily Amount used: 1 liter of henessy/ 6 packs of stellas/ Age of first use: 10 Date of last use: 04/10/20 Heroin Substance route: Injection Frequency: Daily Amount used: 2 bundles Age of first use: 19 Date of last use: 04/10/20 Admission Physical Exam BHS - Vital Signs Vital Signs: Vital Signs - 24 hr 04/11/20 04/11/20 16:59 20:44 Temperature 98.5 F 98.5 F Pulse Rate 60 60 Respiratory 18 18 Rate Blood Pressure 123/70 - Physical General Appearance: Yes: Moderate Distress, Tremorous, Irritable, Sweating, Anxious HEENTM: Yes: Rhinorrhea Respiratory: Yes: Lungs Clear, Normal Breath Sounds, No Respiratory Distress Neck: Yes: Within Normal Limits Breast: Yes: Breast Exam Deferred Cardiology: Yes: Regular Rhythm, Regular Rate Abdominal: Yes: Normal Bowel Sounds Genitourinary: Yes: Within Normal Limits Back: Yes: Normal Inspection Musculoskeletal: Yes: Back pain, Muscle Pain Extremities: Yes: Tremors Neurological: Yes: Within Normal Limits Integumentary: Yes: Warm Lymphatic: Yes: Within Normal Limits - Diagnostic (1) ADHD (attention deficit hyperactivity disorder) Current Visit: Yes Status: Chronic Comment: History as per self-report. Asymptomatic in this examination. (2) Alcohol dependence with uncomplicated withdrawal Current Visit: Yes Status: Acute (3) Cannabis dependence Current Visit: Yes Status: Chronic (4) HIV (human immunodeficiency virus infection) Current Visit: Yes Status: Chronic Qualifiers: HIV symptom status: unspecified Qualified Code(s): B20 - Human immunodeficiency virus [HIV] disease (5) IVDU (intravenous drug user) Current Visit: Yes Status: Acute (6) Nicotine dependence Current Visit: Yes Status: Chronic Qualifiers: Nicotine product type: cigarettes Substance use status: uncomplicated Qualified Code(s): F17.210 - Nicotine dependence, cigarettes, uncomplicated (7) Opioid dependence with withdrawal Current Visit: Yes Status: Acute (8) Alcohol related seizure Current Visit: Yes Status: Chronic Cleared for Admission [facility] - Detox or Rehab [facility] Level of Care: Medically Managed Detox Regimen/Protocol: Methadone, Valium Claeared for Rehab Admission: No Breathalyzer - Breathalyzer Breathalyzer: 0 Urine Drug Screen - Test Device Lot number: [id number] Expiration date: 12/16/21 - Control Is test valid?: Yes - Results Drug screen NEGATIVE: No Urine drug screen results: THC-Marijuana, FEN-Fentanyl, MOP-Opiates Inpatient Rehab Admission - Rehab Decision to Admit Inpatient rehab admission?: No
[2020-04-11] MEDS ORDERED: NICOTINE POLACRILEX 2 MG GUM BUC PRN (21:42)
[2020-04-11] MEDS ORDERED: IBUPROFEN 400 MG TABLET (FP) PO PRN (21:42)
[2020-04-11] MEDS ORDERED: MAGNESIUM CITRATE 300 ML BOTTLE PO PRN (21:42)
[2020-04-11] MEDS ORDERED: MENTHOL/PHENOL 1 EACH UD MM PRN (21:42)
[2020-04-11] MEDS ORDERED: MAG HYDROX/AL HYDROX/SIMETH 30 ML UNIT-DOSE CUP PO PRN (21:42)
[2020-04-11] MEDS ORDERED: MAGNESIUM HYDROX 2400MG/30ML ORAL SUSPENSION 30 ML CUP PO PRN (21:42)
[2020-04-11] MEDS ORDERED: cloNIDine HCL 0.1 MG TABLET PO PRN (21:42)
[2020-04-11] MEDS ORDERED: ACETAMINOPHEN 325 MG TABLET (FP) PO PRN ×2 (21:42)
[2020-04-11] MEDS ORDERED: BISMUTH SUBSALICYLATE 524 MG/30 ML UD PO PRN (21:42)
[2020-04-11] MEDS ORDERED: ONDANSETRON *ODT* 4 MG TABLET SL ONE (22:00)
[2020-04-11] MEDS ORDERED: METHADONE HCL 10 MG TABLET (FOR DETOX USE ONLY) PO ONE (22:15)
[2020-04-11] MEDS: THIAMINE HCL 100 MG TABLET (FP) PO SCH (22:37)
[2020-04-11] MEDS: diazePAM 5 MG TABLET PO SCH (22:37)
[2020-04-11] MEDS: MELATONIN 5 MG TABLETS PO SCH (22:37)
[2020-04-12] MEDS: diazePAM 5 MG TABLET PO SCH ×3 (05:38→22:39)
[2020-04-12] MEDS ORDERED: LOPERAMIDE HCL 2 MG CAPSULE PO ONE (08:56)
[2020-04-12] MEDS ORDERED: DICYCLOMINE HCL 10 MG CAPSULE PO ONE (08:56)
--- NOTE | 2020-04-12 08:57 | PN ---
[facility] CIWA - CIWA Score Nausea/Vomitin-Mild Nausea/No Vomiting Muscle Tremors: 4-Moderate,w/Arms Extend Anxiety: 4-Mod. Anxious/Guarded Agitation: 2 Paroxysmal Sweats: 1-Minimal Palms Moist Orientation: 0-Oriented Tacttile Disturbances: 0-None Auditory Disturbances: 0-None Visual Disturbances: 1-Very Mild Sensitivity Headache: 0-None Present CIWA-Ar Total Score: 13 S COWS - Scale Resting Pulse: 0= IN 80 or Below Sweatin= Chills/Flushing Restless Observation: 0= Sits Still Pupil Size: 1= Pupils >than Normal Bone or Joint Aches: 2= Severe Diffuse Aches Runny Nose/ Eye Tearin= Nasal Congestion GI Upset > 30mins: 2= Nausea/Diarrhea Tremor Observation of Outstretched Hands: 2= Slight Tremor Visible Yawning Observation: 0= None Anxiety or Irritability: 1=Feels Anxious/Irritable Goose Flesh Skin: 3=Piloerection COWS Score: 13 S Progress Note (SOAP) Subjective: 19 years old male admitted on 04/11/20 for alcohol and opiate withdrawal sx management treating with valium and methadone detox regiments feeling cold hot chills low tolerance to solid food loose stool x 1 imodium 4 mg po x 1 bentyl 20 mg po x 1 ensure 120 ml po tid with meals smoking cigarette "a pack a day" encourage nicotine patch 21 mg Objective: 04/12/20 09:01 Vital Signs - 24 hr 04/11/20 04/11/20 04/11/20 16:59 20:44 21:30 Temperature 98.5 F 98.5 F Pulse Rate 60 60 Respiratory 18 18 Rate Blood Pressure 123/70 O2 Sat by Pulse 100 Oximetry (%) 04/11/20 04/12/20 22:13 06:00 Temperature 97.5 F L 97.6 F Pulse Rate 54 L 76 Respiratory 18 18 Rate Blood Pressure 122/77 108/62 O2 Sat by Pulse 100 97 Oximetry (%) 04/12/20 09:01 lab pending Assessment: 04/12/20 09:01 alcohol and opiate withdrawal GI discomfort craving for cigarette low bmi Plan: valium and methadone regiments
[2020-04-12] MEDS ORDERED: METHADONE HCL 10 MG TABLET (FOR DETOX USE ONLY) ONE (09:00)
[2020-04-12] MEDS ORDERED: METHADONE HCL 5 MG TABLET (FOR DETOX USE ONLY) ONE (09:01)
[2020-04-12] MEDS ORDERED: METHADONE (DETOX) 20 MG, METHADONE (DETOX) 5 MG PO ONE (10:00)
[2020-04-12] MEDS: PRENATAL VITAMINS W/ FOLIC ACID TABLET (FP) PO SCH (10:22)
[2020-04-12] MEDS: diazePAM 5 MG TABLET PO PRN ×2 (10:23→18:14)
[2020-04-12] MEDS: NICOTINE 21 MG/24 HOURS TOPICAL PATCH TD SCH (10:24)
--- NOTE | 2020-04-12 10:26 | EKG ---
Test Reason : Blood Pressure : / mmHG Vent. Rate : 053 BPM Atrial Rate : 053 BPM P-R Int : 142 ms QRS Dur : 086 ms QT Int : 446 ms P-R-T Axes : 058 046 033 degrees QTc Int : 418 ms SINUS BRADYCARDIA WITH SINUS ARRHYTHMIA OTHERWISE NORMAL ECG WHEN COMPARED WITH ECG OF 17-NOV-2019 22:19, NO SIGNIFICANT CHANGE WAS FOUND Confirmed by Jean Bernard ([id number]) on 04/12/2020 10:26:41 AM Referred By: Confirmed By:Jean Bernard
[2020-04-12 11:01] LABS: HEMATOCRIT 35.9 % (35.4-49); HEMOGLOBIN 11.1 GM/dL (11.7-16.9); MCH 22.2 pg (25.7-33.7); MCHC 31.1 g/dl (32.0-35.9); MEAN CELL VOLUME 71.4 fl (80-96); MEAN PLT VOLUME 9.5 fl (7.5-11.1); PLATELET COUNT 258 K/MM3 (134-434); RBC 5.02 M/mm3 (4.00-5.60); RDW 17.4 % (11.9-15.9); WHITE BLOOD COUNT 6.9 K/mm3 (4.0-10.0)
[2020-04-12 11:23] LABS: ALBUMIN 3.4 g/dl (3.4-5.0); CALCIUM 9.1 mg/dL (8.5-10.1); CREATININE 0.8 mg/dL (0.55-1.3); POTASSIUM 4.4 mmol/L (3.5-5.1)
[2020-04-12 11:26] LABS: BILIRUBIN,TOTAL 0.5 mg/dL (0.2-1); TOT PROT 7.6 g/dl (6.4-8.2)
--- NOTE | 2020-04-12 14:37 | CONSULT ---
[facility] Psychiatric Consult - Data Date of interview: 04/12/20 Admission source: [facility] Identifying data: Revisit to [facility] and admission to [address] [place] [address] for this 19 y/o [place] male, self-referred for detoxification treatment. EMILIANO issues : cannabis, alcohol, cocaine, heroin, xanax, nicotine. Patient is single, no children, domiciled (lives with biological mother), unemployed and supported on food stamps. Substance Abuse History: Discussed with the patient. EMILIANO profile as follows : Smoking history: Current every day smoker. Have you smoked in the past 12 months: Yes. Aproximately how many cigarettes per day: 20. Hx Chewing Tobacco Use: No. Initiated information on smoking cessation: Yes. 'Breaking Loose' booklet given: 04/11/20. - Substance & Tx. History. Hx Alcohol Use: Yes. Hx Substance Use: Yes. Substance Use Type: Alcohol, Heroin, Marijuana. Hx Substance Use Treatment: Yes ([facility]). - Substances abused. Alcohol. Substance route: Oral. Frequency: Daily. Amount used: 1 liter of henessy/ 6 packs of stellas/. Age of first use: 10. Date of last use: 04/10/20. Heroin. Substance route: Injection. Frequency: Daily. Amount used: 2 bundles. Age of first use: 19. Date of last use: 04/10/20 Medical History: Medical profile is remarkable for antecedent of withdrawal- related seizures and distant history of tonsillectomy (childhood). Patient presents with a history of multiple overdoses with heroin (6-7 times). Psychiatric History: History of two psychiatric hospitalizations ([facility]) for suspicion of suicide attempts via drug overdose (self-report). Long standing history of mental illness : onset of psychiatric issues (age 10). Mr Alpesh has been diagnosed with ADHD (medicated during childhood with psychostimulants) and Bipolar Disorder. Psychotropic medications were prescribed but the patient is chronically non adherent to medications + OPD care. Patient is a frequent user of EMILIANO treatment services at various institutions, including [facility]. Maintains no contact with psychiatric OPD care providers. Patient denies history of suicide attempts. Physical/Sexual Abuse/Trauma History: Patient denies. Additional Comment: Urine drug screen results: THC-Marijuana, FEN-Fentanyl, MOP- Opiates. Noted. Mental Status Exam - Mental Status Exam Alert and Oriented to: Time, Place, Person Cognitive Function: Good Patient Appearance: Well Groomed Mood: Withdrawn, Hopeful Affect: Appropriate, Normal Range Patient Behavior: Fatigued, Appropriate, Cooperative Speech Pattern: Clear, Appropriate Voice Loudness: Normal Thought Process: Goal Oriented Thought Disorder: Not Present Hallucinations: Denies Suicidal Ideation: Denies Homicidal Ideation: Denies Insight/Judgement: Poor Sleep: Poorly, Difficulty falling asleep Appetite: Good Gait/Station: Normal Psychiatric Findings - Problem List (Hugo 1, 2,3) (1) Alcohol dependence with uncomplicated withdrawal Current Visit: Yes Status: Acute (2) Opioid dependence with withdrawal Current Visit: Yes Status: Acute (3) Cannabis dependence Current Visit: Yes Status: Chronic (4) Nicotine dependence Current Visit: Yes Status: Chronic Qualifiers: Nicotine product type: cigarettes Substance use status: uncomplicated Qualified Code(s): F17.210 - Nicotine dependence, cigarettes, uncomplicated (5) Substance induced mood disorder Current Visit: Yes Status: Chronic (6) History of bipolar disorder Current Visit: Yes Status: Chronic Comment: Non-compliant with OPD care. (7) Substance induced mood disorder Current Visit: Yes Status: Chronic (8) Insomnia Current Visit: Yes Status: Chronic Qualifiers: Insomnia type: unspecified Qualified Code(s): G47.00 - Insomnia, unspecified - Initial Treatment Plan Initial Treatment Plan: Psychoeducation. Support. Sleep hygiene. Detoxification. Patient has requested a trial of seroquel because of antecedent of adequate response to that medication (improved sleep + mood stabilization). Side effects/benefits discussed with the patient. Seroquel 50 mg po daily + 100 mg po hs. Consent (verbal) granted by patient. Observation.
[2020-04-12] MEDS: METHOCARBAMOL 500 MG TABLET PO PRN (18:13)
[2020-04-12] MEDS ORDERED: QUEtiapine FUMARATE 50 MG TABLET ONE (20:51)
[2020-04-12] MEDS: MELATONIN 5 MG TABLETS PO SCH (22:38)
[2020-04-12] MEDS: THIAMINE HCL 100 MG TABLET (FP) PO SCH (22:38)
[2020-04-12] MEDS: QUEtiapine FUMARATE 100 MG TABLET (FP) PO SCH (22:39)
[2020-04-13] MEDS: diazePAM 5 MG TABLET PO SCH ×2 (06:07→17:53)
[2020-04-13] MEDS ORDERED: METHADONE HCL 10 MG TABLET (FOR DETOX USE ONLY) PO ONE (10:00)
--- NOTE | 2020-04-13 10:13 | PN ---
[facility] CIWA - CIWA Score Nausea/Vomitin-Mild Nausea/No Vomiting Muscle Tremors: 3 Anxiety: 2 Agitation: 3 Paroxysmal Sweats: 1-Minimal Palms Moist Orientation: 0-Oriented Tacttile Disturbances: 0-None Auditory Disturbances: 0-None Visual Disturbances: 0-None Headache: 0-None Present CIWA-Ar Total Score: 10 S COWS - Scale Resting Pulse: 0= [place] 80 or Below Sweatin= Chills/Flushing Restless Observation: 0= Sits Still Pupil Size: 1= Pupils >than Normal Bone or Joint Aches: 2= Severe Diffuse Aches Runny Nose/ Eye Tearin= None GI Upset > 30mins: 2= Nausea/Diarrhea Tremor Observation of Outstretched Hands: 2= Slight Tremor Visible Yawning Observation: 0= None Anxiety or Irritability: 2=Irritable/Anxious Goose Flesh Skin: 0=Smooth Skin COWS Score: 10 S Progress Note (SOAP) Subjective: 19 years old male admitted on 04/11/20 for alcohol and opiate withdrawal sx management treating with valium and methadone detox regiment seen by psychiatrist augusto wasserman feeling ok today ate breakfast in room tolerated food wall Objective: 04/13/20 10:14 Vital Signs - 24 hr 04/12/20 04/12/20 04/12/20 12:38 16:55 20:33 Temperature 97.5 F L 97.5 F L 96.9 F L Pulse Rate 61 65 88 Respiratory 18 18 18 Rate Blood Pressure 126/69 111/68 108/71 O2 Sat by Pulse 100 100 Oximetry (%) 04/13/20 08:32 Temperature 97.3 F L Pulse Rate 69 Respiratory 16 Rate Blood Pressure 110/74 O2 Sat by Pulse Oximetry (%) Laboratory Tests 04/11/20 04/12/20 04/12/20 22:00 08:05 08:05 WBC 6.9 RBC 5.02 Hgb 11.1 L Hct 35.9 MCV 71.4 L MCH 22.2 L MCHC 31.1 L RDW 17.4 H Plt Count 258 MPV 9.5 Sodium Potassium Chloride Carbon Dioxide Anion Gap BUN Creatinine Est GFR (CKD-EPI)AfAm Est GFR (CKD-EPI)NonAf Random Glucose Calcium Total Bilirubin AST ALT Alkaline Phosphatase Total Protein Albumin Syphilis Serology Non-reactive COVID-19 (BE) Not detected 04/12/20 08:05 WBC RBC Hgb Hct MCV MCH MCHC RDW Plt Count MPV Sodium 137 Potassium 4.4 Chloride 102 Carbon Dioxide 31 Anion Gap 4 L BUN 12.0 Creatinine 0.8 Est GFR (CKD-EPI)AfAm 148.00 Est GFR (CKD-EPI)NonAf 127.70 Random Glucose 81 Calcium 9.1 Total Bilirubin 0.5 AST 83 H ALT 163 H Alkaline Phosphatase 99 Total Protein 7.6 Albumin 3.4 Syphilis Serology COVID-19 (BE) lab noted alcohol induced at elevation Assessment: 04/13/20 10:15 alcohol and opiate withdrawal Plan: valium and methadone regiments
[2020-04-13] MEDS: METHOCARBAMOL 500 MG TABLET PO PRN (10:41)
[2020-04-13] MEDS: NICOTINE 21 MG/24 HOURS TOPICAL PATCH TD SCH (10:41)
[2020-04-13] MEDS: PRENATAL VITAMINS W/ FOLIC ACID TABLET (FP) PO SCH (10:41)
[2020-04-13] MEDS: diazePAM 5 MG TABLET PO PRN ×3 (10:41→22:08)
[2020-04-13] MEDS: QUEtiapine FUMARATE 25 MG TABLET PO SCH (11:15)
[2020-04-13] MEDS: THIAMINE HCL 100 MG TABLET (FP) PO SCH (22:04)
[2020-04-13] MEDS: QUEtiapine FUMARATE 100 MG TABLET (FP) PO SCH (22:04)
[2020-04-13] MEDS: MELATONIN 5 MG TABLETS PO SCH (22:10)
[2020-04-14] MEDS ORDERED: diazePAM 5 MG TABLET PO ONE (06:00)
[2020-04-14] MEDS ORDERED: METHADONE HCL 10 MG TABLET (FOR DETOX USE ONLY) ONE (08:46)
[2020-04-14] MEDS ORDERED: METHADONE HCL 5 MG TABLET (FOR DETOX USE ONLY) ONE (08:46)
[2020-04-14] MEDS ORDERED: METHADONE (DETOX) 10 MG, METHADONE (DETOX) 5 MG PO ONE (10:00)
[2020-04-14] MEDS: NICOTINE 21 MG/24 HOURS TOPICAL PATCH TD SCH (10:07)
[2020-04-14] MEDS: QUEtiapine FUMARATE 25 MG TABLET PO SCH (10:07)
[2020-04-14] MEDS: PRENATAL VITAMINS W/ FOLIC ACID TABLET (FP) PO SCH (10:07)
[2020-04-14] MEDS: diazePAM 5 MG TABLET PO PRN ×3 (10:08→18:22)
[2020-04-14] MEDS ORDERED: DICYCLOMINE HCL 10 MG CAPSULE PO ONE (11:07)
--- NOTE | 2020-04-14 11:09 | PN ---
[facility] CIWA - CIWA Score Nausea/Vomitin-Mild Nausea/No Vomiting Muscle Tremors: 1-None Visible, but [place] Anxiety: 1-Mildly Anxious Agitation: 1-Slight > Activity Paroxysmal Sweats: 1-Minimal Palms Moist Orientation: 0-Oriented Tacttile Disturbances: 1-Very Mild Itch/Numbness Auditory Disturbances: 0-None Visual Disturbances: 2-Mild Sensitivity Headache: 0-None Present CIWA-Ar Total Score: 8 [facility] COWS - Scale Resting Pulse: 0= [place] 80 or Below Sweatin= Chills/Flushing Restless Observation: 0= Sits Still Pupil Size: 1= Pupils >than Normal Bone or Joint Aches: 1= Mild Discomfort Runny Nose/ Eye Tearin= Nasal Congestion GI Upset > 30mins: 1= Stomach Cramp Tremor Observation of Outstretched Hands: 1= Tremor [place], Not Seen Yawning Observation: 1= 1-2x During Session Anxiety or Irritability: 1=Feels Anxious/Irritable Goose Flesh Skin: 0=Smooth Skin COWS Score: 8 [facility] Progress Note (SOAP) Subjective: 19 years old male admitted on 04/11/20 for alcohol and opiate withdrawal sx management treating with valium and methadone detox regiments report abdominal cramp and agssy gas x bentyl 20mg po x 1 Objective: 04/14/20 11:08 Vital Signs - 24 hr 04/13/20 04/13/20 04/13/20 12:48 16:35 20:39 Temperature 97.5 F L 97.7 F 97.3 F L Pulse Rate 98 H 78 90 Respiratory 18 18 16 Rate Blood Pressure 109/64 106/70 97/68 O2 Sat by Pulse 99 98 Oximetry (%) 04/14/20 04/14/20 06:41 08:55 Temperature 97.5 F L 97.3 F L Pulse Rate 67 66 Respiratory 20 18 Rate Blood Pressure 98/56 L 112/66 O2 Sat by Pulse 100 Oximetry (%) Laboratory Tests 04/11/20 04/12/20 04/12/20 22:00 08:05 08:05 WBC 6.9 RBC 5.02 Hgb 11.1 L Hct 35.9 MCV 71.4 L MCH 22.2 L MCHC 31.1 L RDW 17.4 H Plt Count 258 MPV 9.5 Sodium Potassium Chloride Carbon Dioxide Anion Gap BUN Creatinine Est GFR (CKD-EPI)AfAm Est GFR (CKD-EPI)NonAf Random Glucose Calcium Total Bilirubin AST ALT Alkaline Phosphatase Total Protein Albumin Syphilis Serology Non-reactive COVID-19 (BE) Not detected 04/12/20 08:05 WBC RBC Hgb Hct MCV MCH MCHC RDW Plt Count MPV Sodium 137 Potassium 4.4 Chloride 102 Carbon Dioxide 31 Anion Gap 4 L BUN 12.0 Creatinine 0.8 Est GFR (CKD-EPI)AfAm 148.00 Est GFR (CKD-EPI)NonAf 127.70 Random Glucose 81 Calcium 9.1 Total Bilirubin 0.5 AST 83 H ALT 163 H Alkaline Phosphatase 99 Total Protein 7.6 Albumin 3.4 Syphilis Serology COVID-19 (BE) lab noted Assessment: 04/14/20 11:08 alcohol and opiate withdrawal Plan: valium and methadone regiments
[2020-04-14] MEDS: SIMETHICONE 80 MG TAB.CHEW (FP) PO SCH ×3 (15:17→22:23)
[2020-04-14] MEDS: THIAMINE HCL 100 MG TABLET (FP) PO SCH (22:22)
[2020-04-14] MEDS: MELATONIN 5 MG TABLETS PO SCH (22:23)
[2020-04-14] MEDS: QUEtiapine FUMARATE 100 MG TABLET (FP) PO SCH (22:23)
[2020-04-14] MEDS: METHOCARBAMOL 500 MG TABLET PO PRN (22:24)
[2020-04-15 09:17] VITALS: BP 111/68; PULSE 120; TEMP 97.1
[2020-04-15] MEDS ORDERED: METHADONE HCL 10 MG TABLET (FOR DETOX USE ONLY) PO ONE (10:00)
[2020-04-15] MEDS: QUEtiapine FUMARATE 25 MG TABLET PO SCH (10:08)
[2020-04-15] MEDS: PRENATAL VITAMINS W/ FOLIC ACID TABLET (FP) PO SCH (10:08)
[2020-04-15] MEDS: NICOTINE 21 MG/24 HOURS TOPICAL PATCH TD SCH (10:08)
[2020-04-15] MEDS: METHOCARBAMOL 500 MG TABLET PO PRN (10:08)
[2020-04-15] MEDS: SIMETHICONE 80 MG TAB.CHEW (FP) PO SCH (10:08)
--- NOTE | 2020-04-15 11:54 | DS ---
[facility] Detox Discharge Summary Admission Date: 04/11/20 Discharge Date: 04/15/20 - History Present History: Alcohol Dependence, Opioid Dependence Additional Comments: 19 years old male admitted on 04/12/20 for alcohol and opiate withdrawal sx management treating with valium and methadone detox regiments seen by psychiatrist augusto wasserman mr madrid prefers to leave the detox unit today instead of estimated discharge day of 04/16/20 mr madrid is alert oriented x 3 speech clearly coherently General Appearance: Yes: Moderate Distress, Tremorous, Irritable, Sweating, Anxious HEENTM: Yes: Rhinorrhea Respiratory: Yes: Lungs Clear, Normal Breath Sounds, No Respiratory Distress Neck: Yes: Within Normal Limits Breast: Yes: Breast Exam Deferred Cardiology: Yes: Regular Rhythm, Regular Rate Abdominal: Yes: Normal Bowel Sounds Genitourinary: Yes: Within Normal Limits Back: Yes: Normal Inspection Musculoskeletal: Yes: Back pain, Muscle Pain Extremities: Yes: Tremors Neurological: Yes: Within Normal Limits Integumentary: Yes: Warm Lymphatic: Yes: Within Normal Limits Pertinent Past History: time for discharge 35 minutes treatment team met with mr madrid to discuss the benefit of valium and methadone regiments completion mr madrid may follow up with infectious disease provider as aftercare - Physical Exam Results Vital Signs: Vital Signs Temperature 97.1 F L 04/15/20 08:32 Pulse Rate 120 H 04/15/20 08:32 Respiratory Rate 18 04/15/20 08:32 Blood Pressure 111/68 04/15/20 08:32 O2 Sat by Pulse Oximetry (%) 100 04/14/20 20:45 Pertinent Admission Physical Exam Findings: alcohol and opiate withdrawal Laboratory Tests 04/11/20 04/12/20 04/12/20 22:00 08:05 08:05 WBC 6.9 RBC 5.02 Hgb 11.1 L Hct 35.9 MCV 71.4 L MCH 22.2 L MCHC 31.1 L RDW 17.4 H Plt Count 258 MPV 9.5 Sodium Potassium Chloride Carbon Dioxide Anion Gap BUN Creatinine Est GFR (CKD-EPI)AfAm Est GFR (CKD-EPI)NonAf Random Glucose Calcium Total Bilirubin AST ALT Alkaline Phosphatase Total Protein Albumin Syphilis Serology Non-reactive COVID-19 (BE) Not detected 04/12/20 08:05 WBC RBC Hgb Hct MCV MCH MCHC RDW Plt Count MPV Sodium 137 Potassium 4.4 Chloride 102 Carbon Dioxide 31 Anion Gap 4 L BUN 12.0 Creatinine 0.8 Est GFR (CKD-EPI)AfAm 148.00 Est GFR (CKD-EPI)NonAf 127.70 Random Glucose 81 Calcium 9.1 Total Bilirubin 0.5 AST 83 H ALT 163 H Alkaline Phosphatase 99 Total Protein 7.6 Albumin 3.4 Syphilis Serology COVID-19 (BE) lab noted hgb and ast elevation will [facility] - Treatment Hospital Course: Detox Protocol Followed, Detoxed Safely, Responded well, Discharged Condition Good, Rehab Referral Accepted Patient has Accepted a Rehab Referral to: [facility] - Medication Discharge Medications: Ambulatory Orders Naloxone HCl [Narcan] 4 mg NS ASDIR PRN #1 spray 01/25/20 - Diagnosis (1) Alcohol dependence with uncomplicated withdrawal Status: Acute (2) Opioid dependence with withdrawal Status: Acute (3) Weight loss Status: Chronic (4) HIV (human immunodeficiency virus infection) Status: Chronic Qualifiers: HIV symptom status: asymptomatic Qualified Code(s): Z21 - Asymptomatic human immunodeficiency virus [HIV] infection status (5) Nicotine dependence Status: Acute Qualifiers: Nicotine product type: cigarettes Substance use status: in withdrawal Qualified Code(s): F17.213 - Nicotine dependence, cigarettes, with withdrawal - AMA Did Patient Leave Against Medical Advice: No CIWA Score - CIWA Score Nausea/Vomitin-Mild Nausea/No Vomiting Muscle Tremors: 1-None Visible, but [place] Anxiety: 1-Mildly Anxious Agitation: 1-Slight > Activity Paroxysmal Sweats: No Perspiration Orientation: 0-Oriented Tacttile Disturbances: 0-None Auditory Disturbances: 0-None Visual Disturbances: 0-None Headache: 0-None Present CIWA-Ar Total Score: 4 COWS (PN) - Opiate Withdrawal Resting Pulse: 2= IA 101-120 Sweatin= No chills or Flushing Restless Observation: 0= Sits Still Pupil Size: 0= Normal to Room Light Bone or Joint Aches: 0= None Runny Nose/ Eye Tearin= None GI Upset > 30mins: 0= None Tremor Observation of Outstretched Hands: 1= Tremor [place], Not Seen Yawning Observation: 0= None Anxiety or Irritability: 1=Feels Anxious/Irritable Goose Flesh Skin: 0=Smooth Skin COWS Score: 4
[2020-04-16] MEDS ORDERED: METHADONE HCL 5 MG TABLET (FOR DETOX USE ONLY) PO ONE (06:00)
== END 2020-04-15 11:10 | disposition home or self-care (01) | DRG 773 ==
LOC: YASAS 15:41 → Y3N 21:52
PROVIDERS: ADMIT Allergy & Immunology; ATTEND Allergy & Immunology
PROC: HZ2ZZZZ Detoxification Services for Substance Abuse Treatment (ICD-10-PCS; principal; 2020-04-11)
DX: F11.23 Opioid dependence with withdrawal (principal); F10.230 Alcohol dependence with withdrawal, uncomplicated; F12.20 Cannabis dependence, uncomplicated; F17.213 Nicotine dependence, cigarettes, with withdrawal; F19.24 Other psychoactive substance dependence with psychoactive substance-induced mood disorder; Z21 Asymptomatic human immunodeficiency virus [HIV] infection status; R63.4 Abnormal weight loss; G47.00 Insomnia, unspecified; Z91.013 Allergy to seafood; Z91.14 Patient's other noncompliance with medication regimen; Z86.59 Personal history of other mental and behavioral disorders; Z86.69 Personal history of other diseases of the nervous system and sense organs; Z88.8 Allergy status to other drugs, medicaments and biological substances
CPT/HCPCS: 36415; 80053; 85027; 86780; 93005; 93010; Q0162; U0003

== ENCOUNTER 2020-06-12 19:03 | Inpatient (IN) | payer OTHER ==
--- OUTSIDE RECORDS SUMMARY | 2020-06-12 19:07 | XMS ---
:2000 Author Organization [facility] Support Name Relationship Address Phone UE, UNEMPLOYED Unavailable Unavailable Unavailable JAYCE MENCHACA [address] [phone] [place] [address] UE Unavailable Unavailable Unavailable TEODORO RODRIGUEZ SELF / SAME PATIENT HOMELESS [phone] [place] [address] JAYCE MENCHACA Mother [address] [place] [address] Re-disclosure Warning The records that you are about to access may contain information from federally- assisted alcohol or drug abuse programs. If such information is present, then the following federally mandated warning applies: This information has been disclosed to you from records protected by federal confidentiality rules (42 CFR part 2). The federal rules prohibit you from making any further disclosure of this information unless further disclosure is expressly permitted by the written consent of the person to whom it pertains or as otherwise permitted by 42 CFR part 2. A general authorization for the release of medical or other information is NOT sufficient for this purpose. The Federal rules restrict any use of the information to criminally investigate or prosecute any alcohol or drug abuse patient.The records that you are about to access may contain highly sensitive health information, the redisclosure of which is protected by Article 27-F of the [facility] Public Health law. If you continue you may haveaccess to information: Regarding HIV / AIDS; Provided by facilities licensed or operated by the [facility] Office of Mental Health; or Provided by the [facility] Office for People With Developmental Disabilities. If such information is present, then the following [facility] mandated warning applies: This information has been disclosed to you from confidential records which are protected by state law. State law prohibits you from making any further disclosure of this information without the specific written consent of the person to whom it pertains, or as otherwise permitted by law. Any unauthorized further disclosure in violation of state law may result in a fine or long-term sentence or both. A general authorization for the release of medical or other information is NOT sufficient authorization for further disclosure. Insurance Providers Payer name Policy type Policy ID Covered Covered constitution party's Policy P jose / Coverage constitution party ID relationship to Garcia Inf ormation type garcia HEALTH [id number] SP [id number] FIRST HEALTH [id number] SP [id number] FIRST Results ID Date Data Source [id number] 05/05/2020 11:45:00 PM EDT [facility] Name Value Range Interpretation Description Data Sup porting Code Source(s) Document(s ) SARS [facility] coronavirus 2 RNA This lab was ordered by [facility] and reported by [facility]. ID Date Data Source [id number] 04/11/2020 10:00:00 PM EDT [facility] Name Value Range Interpretation Description Data Sup porting Code Source(s) Document(s ) SARS [facility] coronavirus 2 RNA This lab was ordered by [facility] and reported by [facility]. ID Date Data Source [id number] 03/08/2020 08:16:00 AM EDT [facility] Name Value Range Interpretation Description Data Sup porting Code Source(s) Document(s ) SARS [facility] CORONAVIRUS 2 RNA This lab was ordered by [facility] and reported by [facility]. ID Date Data Source [id number] 11/30/2019 07:17:00 AM EDT [facility] Name Value Range Interpretation Description Data Sup porting Code Source(s) Document(s ) 2019 Novel [facility] Coronavirus RNA Interpretation Unspecified Specimen Qualitative BE Probe Detection This lab was ordered by [facility] and reported by [facility]. Procedure
[2020-06-12 19:26] VITALS: BMI 25.7
--- NOTE | 2020-06-12 20:17 | BHS.RME ---
Substance Use & Tx History - Substance Use History Heroin Substance amount: 3 bundles Frequency of use: Daily Substance route: Injection (ex: intravenous or skin popping) Date of Last Use: 06/12/20 (started age 16) xanax Substance amount: 10 mg Frequency of use: Daily Substance route: Oral Date of Last Use: 06/11/20 (started 4 months ago) - Last Treatment Date of last treatment: 05/08/20 Treatment type: Substance Use Disorder (EMILIANO) ([facility]) Where was last treatment: Detox Physical/Psych/Mental Status - Behavior General Behavior: Increased activity (restlessness, agitation) - Cooperativeness Cooperativeness: Cooperative - Physical Health Problems Is patient presently having any pain?: No (tricia 05/20) Does patient presently have any injuries (include location): No Does patient currently have a fever: No Is patient : No COWS - Scale Resting Pulse: 0= [place] 80 or Below Sweatin= Beads of Sweat on Face Restless Observation: 1= Difficult to Sit Still Pupil Size: 0= Normal to Room Light Bone or Joint Aches: 4=Acute Joint/Muscle Pain Runny Nose/ Eye Tearin= Nasal Congestion GI Upset > 30mins: 1= Stomach Cramp Tremor Observation: 0= None Yawning Observation: 1= 1-2x During Session Anxiety or Irritability: 2=Irritable/Anxious Goose Flesh Skin: 0=Smooth Skin COWS Score: 13 CIWA Nausea/Vomitin-No Nausea/No Vomiting Muscle Tremors: None Anxiety: 4-Mod. Anxious/Guarded Agitation: 4-Moderately Restless Paroxysmal Sweats: 3 Orientation: 1-Uncertain about Date Tacttile Disturbances: 0-None Auditory Disturbances: 0-None Visual Disturbances: 3-Moderate Sensitivity (bright light) Headache: 4-Moderately Severe (7/10) CIWA-Ar Total Score: 19
--- NOTE | 2020-06-12 20:22 | HP ---
COWS - Scale Resting Pulse: 0= [place] 80 or Below Sweatin= Beads of Sweat on Face Restless Observation: 1= Difficult to Sit Still Pupil Size: 2= Moderately Dilated Bone or Joint Aches: 4=Acute Joint/Muscle Pain Runny Nose/ Eye Tearin= Nasal Congestion GI Upset > 30mins: 1= Stomach Cramp Tremor Observation: 0= None Yawning Observation: 1= 1-2x During Session Anxiety or Irritability: 2=Irritable/Anxious Goose Flesh Skin: 5=Prominent Piloerection COWS Score: 20 CIWA Score Nausea/Vomitin-No Nausea/No Vomiting Muscle Tremors: None Anxiety: 4-Mod. Anxious/Guarded Agitation: 4-Moderately Restless Paroxysmal Sweats: 3 Orientation: 1-Uncertain about Date Tacttile Disturbances: 0-None Auditory Disturbances: 0-None Visual Disturbances: 3-Moderate Sensitivity (bright light) Headache: 4-Moderately Severe (7/10) CIWA-Ar Total Score: 19 - Admission Criteria [facility]ASAS Guidelines: Admission for Medically Managed Detox: Requires at least one of the followin. CIWA greater than 12 2. Seizures within the past 24 hours 3. Delirium tremens within the past 24 hours 4. Hallucinations within the past 24 hours 5. Acute intervention needed for co occurring medical disorder 6. Acute intervention needed for co occurring psychiatric disorder 7. Severe withdrawal that cannot be handled at a lower level of care (continued vomiting, continued diarrhea, abnormal vital signs) requiring intravenous medication and/or fluids 8. Patient presents the following: CIWA greater than 12 Admission Criteria Met: Admission criteria met Admitting History and Physical - Past Surgical History Past Surgical History: Yes: None - Smoking History Smoking history: Current every day smoker Have you smoked in the past 12 months: Yes Aproximately how many cigarettes per day: 30 - Alcohol/Substance Use Hx Alcohol Use: Yes - Social History ADL: Independent History of Recent Travel: No Admission ROS S - HPI Chief Complaint: C/O WITHDRAWAL SX'S Allergies/Adverse Reactions: Allergies Allergy/AdvReac Type Severity Reaction Status Date / Time Fish Containing Products Allergy Verified 05/05/20 19:20 chlordiazepoxide AdvReac Mild Verified 05/05/20 19:20 [From Librium] History of Present Illness: HERE FOR POLY SUBSTANCE ABUSE. CLIENT IS SELF REFERRED. KNOWN TO PROGRAM. LAST DC 05/08/20. REPORTS RELAPSING 2 WEEKS AFTER DC. CLIENT REPORTS DAILY ALCOHOL, HEROIN AND XANAX ABUSE.. LAST USE EARLIER TODAY. PRESENTS WITH C/O WITHDRAWAL SXS. 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 DENIES ANY SIGNIFICANT PERIOD OF CLEAN TIME IN THE PAST 12 MONTHS. LIVES WITH MOTHER, UNEMPLOYED, DENIES LEGALS Substance Use & Tx History - Substance Use History Heroin Substance amount: 3 bundles Frequency of use: Daily Substance route: Injection (ex: intravenous or skin popping) Date of Last Use: 06/12/20 (started age 16) xanax Substance amount: 10 mg Frequency of use: Daily Substance route: Oral Date of Last Use: 06/11/20 (started 4 months ago) Exam Limitations: No Limitations - Ebola screening Have you traveled outside of the country in the last 21 days: No Have you had contact with anyone from an Ebola affected area: No Have you been sick,other than usual withdrawal symptoms: No Do you have a fever: No - Review of Systems Constitutional: Chills, Loss of Appetite, Malaise, Night Sweats, Changes in sleep, Unintentional Wgt. Loss EENT: reports: No Symptoms Reported, Nose Congestion Respiratory: reports: No Symptoms reported Cardiac: reports: No Symptoms Reported GI: reports: Poor Appetite, Poor Fluid Intake, Abdominal cramping : reports: No Symptoms Reported Musculoskeletal: reports: Back Pain, Joint Pain, Neck Pain Integumentary: reports: Sweating Neuro: reports: Headache Endocrine: reports: No Symptoms Reported Hematology: reports: No Symptoms Reported Psychiatric: reports: Orientated x3, Agitated, Anxious, Depressed (DENIES SI/HI/AVH) Other Systems: Reviewed and Negative Patient History - Patient Medical History Hx Anemia: No Hx Asthma: No Hx Chronic Obstructive Pulmonary Disease (COPD): No Hx Cancer: No Hx Cardiac Disorders: No Hx Congestive Heart Failure: No Hx Hypertension: No Hx Hypercholesterolemia: No Hx Pacemaker: No HX Cerebrovascular Accident: No Hx Seizures: Yes (Alcohol related seizure 3 YEARS AGO) Hx Dementia: No Hx Diabetes: No Hx Gastrointestinal Disorders: No Hx Liver Disease: No Hx Genitourinary Disorders: No Hx Sexually Transmitted Disorders: No Hx Renal Disease (ESRD): No Hx Thyroid Disease: No Hx Human Immunodeficiency Virus (HIV): No Hx Hepatitis C: No Hx Depression: Yes Hx Suicide Attempt: No Hx Bipolar Disorder: Yes Hx Schizophrenia: No Other Medical History: DENIES - Patient Surgical History Past Surgical History: Yes Hx Neurologic Surgery: No Hx Cataract Extraction: No Hx Cardiac Surgery: No Hx Lung Surgery: No Hx Breast Surgery: No Hx Breast Biopsy: No Hx Abdominal Surgery: No Hx Appendectomy: No Hx Cholecystectomy: No Hx Genitourinary Surgery: No Hx Section: No Hx Orthopedic Surgery: No Other Surgical History: tonsillectomy at age of 3 years Anesthesia Reaction: No - PPD History Previous Implant?: Yes Documented Results: Negative w/proof Implanted On Prior [facility] Admission?: Yes Date: 01/23/20 Results: 0 MM PPD to be Administered?: No - Smoking Cessation Smoking history: Current every day smoker Have you smoked in the past 12 months: Yes Aproximately how many cigarettes per day: 20 Cigars Per Day: 0 Hx Chewing Tobacco Use: No Initiated information on smoking cessation: Yes 'Breaking Loose' booklet given: 06/12/20 - Substance & Tx. History Hx Alcohol Use: Yes Hx Substance Use: Yes Substance Use Type: Alcohol, Cocaine, Heroin, Marijuana Hx Substance Use Treatment: Yes ([facility]) - Substances abused Alcohol Other (specify): BEER/LIQUOR Substance route: Oral Frequency: Daily Amount used: 2- 6 PACKS/ 750 ML Age of first use: 10 Date of last use: 06/12/20 Cocaine Substance route: Injection Frequency: 1-3 times last 30 days (2X) Amount used: 40 DOLLARS Age of first use: 14 Date of last use: 06/10/20 Marijuana/Hashish Substance route: Smoking Frequency: Daily Amount used: 2 BLUNTS Age of first use: 10 Date of last use: 06/12/20 Admission Physical Exam BHS - Vital Signs Vital Signs: Vital Signs - 24 hr 06/12/20 19:17 Temperature 97.6 F Pulse Rate 81 Respiratory 18 Rate Blood Pressure 107/72 - Physical General Appearance: Yes: Moderate Distress, Irritable, Sweating, Anxious HEENTM: Yes: EOMI, Normocephalic Respiratory: Yes: Chest Non-Tender, Lungs Clear, Normal Breath Sounds, No Respiratory Distress, No Accessory Muscle Use Neck: Yes: No masses,lesions,Nodules, Supple, Trachea in good position Breast: Yes: Breasts Symetrical Cardiology: Yes: Regular Rhythm, S1, S2, Tachycardia Abdominal: Yes: Non Tender, Soft, Increased Bowel Sounds Genitourinary: Yes: Within Normal Limits Back: Yes: Normal Inspection Musculoskeletal: Yes: full range of Motion, Gait Steady, Joint Stiffness (PAIN) Extremities: Yes: Normal Capillary Refill, Normal Range of Motion Neurological: Yes: Fully Oriented, Alert, Motor Strength 5/5, Depressed Affect Integumentary: Yes: Cold, Track Ruano, Other (PILOERECTION) Lymphatic: Yes: Within Normal Limits - Diagnostic (1) Alcohol dependence with uncomplicated withdrawal Current Visit: Yes Status: Acute (2) IVDU (intravenous drug user) Current Visit: Yes Status: Acute (3) Opioid dependence with withdrawal Current Visit: Yes Status: Acute (4) Sedative, hypnotic or anxiolytic dependence with withdrawal, uncomplicated Current Visit: Yes Status: Acute (5) Substance induced mood disorder Current Visit: Yes Status: Suspected (6) Substance-induced sleep disorder Current Visit: Yes Status: Suspected (7) Cannabis abuse Current Visit: Yes Status: Acute (8) Cocaine dependence Current Visit: Yes Status: Acute Cleared for Admission [facility] - Detox or Rehab [facility] Level of Care: Medically Managed Detox Regimen/Protocol: Methadone/Valium Claeared for Rehab Admission: No Breathalyzer - Breathalyzer Breathalyzer: 0 Urine Drug Screen - Test Device Lot number: [id number] Expiration date: 12/16/21 - Control Is test valid?: Yes - Results Drug screen NEGATIVE: No Urine drug screen results: THC-Marijuana, CHU-Cocaine, FEN-Fentanyl, MOP- Opiates, BZO-Benzodiazepines Inpatient Rehab Admission - Rehab Decision to Admit Inpatient rehab admission?: No
[2020-06-12] MEDS ORDERED: hydrOXYzine PAMOATE 25 MG CAPSULE (FP) PO PRN (20:29)
[2020-06-12] MEDS ORDERED: ONDANSETRON *ODT* 4 MG TABLET SL PRN (20:29)
[2020-06-12] MEDS ORDERED: MAG HYDROX/AL HYDROX/SIMETH 30 ML UNIT-DOSE CUP PO PRN (20:29)
[2020-06-12] MEDS ORDERED: BISMUTH SUBSALICYLATE 524 MG/30 ML UD PO PRN (20:29)
[2020-06-12] MEDS ORDERED: IBUPROFEN 400 MG TABLET (FP) PO PRN (20:29)
[2020-06-12] MEDS ORDERED: MAGNESIUM HYDROX 2400MG/30ML ORAL SUSPENSION 30 ML CUP PO PRN (20:29)
[2020-06-12] MEDS ORDERED: NICOTINE POLACRILEX 2 MG GUM BUC PRN (20:29)
[2020-06-12] MEDS ORDERED: ACETAMINOPHEN 325 MG TABLET (FP) PO PRN (20:29)
[2020-06-12] MEDS ORDERED: cloNIDine HCL 0.1 MG TABLET PO PRN (20:29)
[2020-06-12] MEDS ORDERED: METHOCARBAMOL 500 MG TABLET PO PRN (20:29)
[2020-06-12] MEDS ORDERED: MAGNESIUM CITRATE 300 ML BOTTLE PO PRN (20:29)
[2020-06-12] MEDS ORDERED: NALOXONE HCL 0.4 MG/ML VIAL IM PRN (20:29)
[2020-06-12] MEDS ORDERED: diazePAM 5 MG TABLET PO PRN (20:29)
[2020-06-12] MEDS ORDERED: MENTHOL/PHENOL 1 EACH UD MM PRN (20:29)
[2020-06-12] MEDS ORDERED: P-EPHED 60MG/TRIPROLIDI 2.5MG TABLET PO PRN (20:29)
[2020-06-12] MEDS ORDERED: guaiFENesin 200 MG/10 ML 10 ML UNIT-DOSE CUPS PO PRN (20:29)
[2020-06-12] MEDS ORDERED: DICYCLOMINE HCL 10 MG CAPSULE PO PRN (20:29)
--- OUTSIDE RECORDS SUMMARY | 2020-06-12 22:02 | XMS ---
:2000 Author Organization [facility] Support Name Relationship Address Phone UE, UNEMPLOYED Unavailable Unavailable Unavailable JAYCE MENCHACA [address] [place] [address] UE Unavailable Unavailable Unavailable TEODORO RODRIGUEZ SELF / SAME PATIENT HOMELESS [phone] [place] [address] JAYCE MENCHACA Mother [address] [place] [address] Re-disclosure Warning The records that you are [...] is protected by Article 27-F of the [facility] Public Health law. If you continue you may haveaccess to information: Regarding HIV / AIDS; Provided by facilities licensed or operated by the [facility] Office of Mental Health; or Provided by the [facility] Office for People With Developmental Disabilities. If such information is present, then the following [facility] mandated warning applies: This information has been [...] law may result in a fine or mcfp sentence or both. A general authorization for the release of medical or other information is NOT sufficient authorization for further disclosure. Insurance Providers Payer name Policy type Policy ID Covered Covered alliance party's Policy P jose / Coverage alliance party ID relationship to Garcia Inf ormation type garcia HEALTH [id number] SP [id number] FIRST HEALTH [id number] SP [id number] FIRST Results ID Date Data Source [id number] 05/05/2020 11:45:00 PM EDT [facility] Name Value Range Interpretation Description Data Sup porting Code Source(s) Document(s ) SARS [facility] coronavirus 2 RNA This lab was ordered by [facility] and reported by [facility]. ID Date Data Source [id number] 04/11/2020 10:00:00 PM EDT [facility] Name Value Range Interpretation Description Data Sup porting Code Source(s) Document(s ) SARS [facility] coronavirus 2 RNA This lab was ordered by [facility] and reported by [facility]. ID Date Data Source [id number] 03/08/2020 08:16:00 AM EDT [facility] Name Value Range Interpretation Description Data Sup porting Code Source(s) Document(s ) SARS [facility] CORONAVIRUS 2 RNA This lab was ordered by [facility] and reported by [facility]. ID Date Data Source [id number] 11/30/2019 07:17:00 AM EDT [facility] Name Value Range Interpretation Description Data Sup porting Code Source(s) Document(s ) 2019 Novel [facility] Coronavirus RNA Interpretation Unspecified Specimen Qualitative BE Probe Detection This lab was ordered by [facility] and reported by [facility]. Procedure
[2020-06-12] MEDS ORDERED: METHADONE HCL 10 MG TABLET (FOR DETOX USE ONLY) PO ONE (22:45)
[2020-06-12] MEDS: MELATONIN 5 MG TABLETS PO SCH (23:13)
[2020-06-12] MEDS: ACETAMINOPHEN 325 MG TABLET (FP) PO PRN (23:14)
[2020-06-12] MEDS: THIAMINE HCL 100 MG TABLET (FP) PO SCH (23:15)
[2020-06-12] MEDS: diazePAM 5 MG TABLET PO SCH (23:23)
[2020-06-13] MEDS: diazePAM 5 MG TABLET PO SCH ×4 (06:11→22:21)
[2020-06-13] MEDS ORDERED: METHADONE HCL 10 MG TABLET (FOR DETOX USE ONLY) ONE (09:21)
[2020-06-13] MEDS ORDERED: METHADONE HCL 5 MG TABLET (FOR DETOX USE ONLY) ONE (09:22)
[2020-06-13] MEDS ORDERED: diazePAM 5 MG TABLET ONE ×4 (09:22→20:15)
[2020-06-13] MEDS ORDERED: METHADONE (DETOX) 20 MG, METHADONE (DETOX) 5 MG PO ONE (10:00)
[2020-06-13 10:53] LABS: HEMATOCRIT 34.8 % (35.4-49); HEMOGLOBIN 11.3 GM/dL (11.7-16.9); MCH 23.4 pg (25.7-33.7); MCHC 32.5 g/dl (32.0-35.9); MEAN CELL VOLUME 71.9 fl (80-96); MEAN PLT VOLUME 8.6 fl (7.5-11.1); PLATELET COUNT 258 K/MM3 (134-434); RBC 4.84 M/mm3 (4.00-5.60); RDW 18.1 % (11.9-15.9); WHITE BLOOD COUNT 6.6 K/mm3 (4.0-10.0)
[2020-06-13 11:00] LABS: ALBUMIN 3.2 g/dl (3.4-5.0); BILIRUBIN,TOTAL 0.5 mg/dL (0.2-1); BLOOD UREA NITROGEN 14.5 mg/dL (7-18); CREATININE 0.8 mg/dL (0.55-1.3); POTASSIUM 3.9 mmol/L (3.5-5.1); TOT PROT 7.4 g/dl (6.4-8.2)
[2020-06-13] MEDS: NICOTINE 21 MG/24 HOURS TOPICAL PATCH TD SCH (11:00)
[2020-06-13] MEDS: PRENATAL VITAMINS W/ FOLIC ACID TABLET (FP) PO SCH (11:02)
[2020-06-13] MEDS ORDERED: PENICILLIN V POTASSIUM 500 MG TABLET PO ONE (15:36)
--- NOTE | 2020-06-13 15:42 | PN ---
S CIWA - CIWA Score Nausea/Vomitin-Mild Nausea/No Vomiting Muscle Tremors: 3 Anxiety: 3 Agitation: 2 Paroxysmal Sweats: 2 Orientation: 0-Oriented Tacttile Disturbances: 0-None Auditory Disturbances: 0-None Visual Disturbances: 2-Mild Sensitivity Headache: 2-Mild CIWA-Ar Total Score: 15 BHS COWS - Scale Resting Pulse: 0= [place] 80 or Below Sweatin= Chills/Flushing Restless Observation: 0= Sits Still Pupil Size: 1= Pupils >than Normal Bone or Joint Aches: 1= Mild Discomfort Runny Nose/ Eye Tearin= Nasal Congestion GI Upset > 30mins: 2= Nausea/Diarrhea Tremor Observation of Outstretched Hands: 2= Slight Tremor Visible Yawning Observation: 1= 1-2x During Session Anxiety or Irritability: 2=Irritable/Anxious Goose Flesh Skin: 3=Piloerection COWS Score: 14 S Progress Note (SOAP) Subjective: 19 years old male was admitted on 06/12/20 for benzo and opiate withdrawal sx management treating with valium and methadone detox regiment feels tired ate small amount of breakfast no lunch ensure 90ml po bid with meals c/0 sore throat oral pharyngeal redness no swell no lesion painful when swallowing pen vee k 500mg po bid x 5 days Objective: 06/13/20 15:41 Vital Signs - 24 hr 06/12/20 06/13/20 06/13/20 19:17 08:40 09:22 Temperature 97.6 F 98 F 98 F Pulse Rate 81 98 H 98 H Respiratory 18 18 18 Rate Blood Pressure 107/72 97/68 97/68 06/13/20 13:44 Temperature 97.3 F L Pulse Rate 70 Respiratory 18 Rate Blood Pressure 98/58 L Laboratory Tests 06/13/20 06/13/20 06/13/20 07:50 07:50 07:50 WBC 6.6 RBC 4.84 Hgb 11.3 L Hct 34.8 L MCV 71.9 L MCH 23.4 L MCHC 32.5 RDW 18.1 H Plt Count 258 MPV 8.6 Sodium 140 Potassium 3.9 Chloride 105 Carbon Dioxide 29 Anion Gap 5 L BUN 14.5 Creatinine 0.8 Est GFR (CKD-EPI)AfAm 148.00 Est GFR (CKD-EPI)NonAf 127.70 Random Glucose 90 Calcium 9.0 Total Bilirubin 0.5 AST 48 H ALT 115 H Alkaline Phosphatase 98 Total Protein 7.4 Albumin 3.2 L Syphilis Serology Non-reactive HIV Ag/Ab Combo Qual 06/13/20 07:50 WBC RBC Hgb Hct MCV MCH MCHC RDW Plt Count MPV Sodium Potassium Chloride Carbon Dioxide Anion Gap BUN Creatinine Est GFR (CKD-EPI)AfAm Est GFR (CKD-EPI)NonAf Random Glucose Calcium Total Bilirubin AST ALT Alkaline Phosphatase Total Protein Albumin Syphilis Serology HIV Ag/Ab Combo Qual Negative 06/13/20 15:42 covid pending Assessment: 06/13/20 15:42 benzo and opiate withdrawal Plan: valium and methadone regiments
[2020-06-13] MEDS: MELATONIN 5 MG TABLETS PO SCH (22:20)
[2020-06-13] MEDS: PENICILLIN V POTASSIUM 500 MG TABLET PO SCH (22:21)
[2020-06-13] MEDS: THIAMINE HCL 100 MG TABLET (FP) PO SCH (22:21)
[2020-06-13] MEDS: ACETAMINOPHEN 325 MG TABLET (FP) PO PRN (22:23)
[2020-06-14] MEDS ORDERED: TRIMETHOBENZAMIDE HCL 200MG/2ML INJ IM ONE ×4 (00:23→18:00)
[2020-06-14] MEDS ORDERED: diazePAM 5 MG TABLET ONE (04:16)
[2020-06-14] MEDS: diazePAM 5 MG TABLET PO SCH ×3 (07:15→23:58)
[2020-06-14] MEDS ORDERED: METHADONE HCL 10 MG TABLET (FOR DETOX USE ONLY) ONE (09:41)
[2020-06-14] MEDS ORDERED: METHADONE HCL 10 MG TABLET (FOR DETOX USE ONLY) PO ONE (10:00)
[2020-06-14] MEDS: NICOTINE 21 MG/24 HOURS TOPICAL PATCH TD SCH (10:23)
[2020-06-14] MEDS: PRENATAL VITAMINS W/ FOLIC ACID TABLET (FP) PO SCH (10:23)
[2020-06-14] MEDS: PENICILLIN V POTASSIUM 500 MG TABLET PO SCH ×2 (10:23→23:57)
[2020-06-14] MEDS ORDERED: ONDANSETRON *ODT* 4 MG TABLET SL ONE (11:27)
--- NOTE | 2020-06-14 11:28 | PN ---
[facility] CIWA - CIWA Score Nausea/Vomitin-Mild Nausea/No Vomiting (feels nausea tolerated methadone well) Muscle Tremors: 3 Anxiety: 4-Mod. Anxious/Guarded Agitation: 2 Paroxysmal Sweats: 1-Minimal Palms Moist Orientation: 0-Oriented Tacttile Disturbances: 0-None Auditory Disturbances: 0-None Visual Disturbances: 0-None Headache: 0-None Present CIWA-Ar Total Score: 11 S COWS - Scale Resting Pulse: 0= [place] 80 or Below Sweatin= Chills/Flushing Restless Observation: 0= Sits Still Pupil Size: 1= Pupils >than Normal Bone or Joint Aches: 1= Mild Discomfort Runny Nose/ Eye Tearin= Nasal Congestion GI Upset > 30mins: 2= Nausea/Diarrhea (nausea no diarrhea) Tremor Observation of Outstretched Hands: 2= Slight Tremor Visible Yawning Observation: 0= None Anxiety or Irritability: 2=Irritable/Anxious Goose Flesh Skin: 0=Smooth Skin COWS Score: 10 S Progress Note (SOAP) Subjective: 19 years old male was admitted on 06/12/20 for benzo and opiate withdrawal sx management treating with valium and methadone detox regiments Vital Signs - 24 hr 06/13/20 06/13/20 06/13/20 13:44 16:52 21:02 Temperature 97.3 F L 98.4 F 97.1 F L Pulse Rate 70 86 96 H Respiratory 18 16 16 Rate Blood Pressure 98/58 L 120/60 107/63 O2 Sat by Pulse 99 Oximetry (%) 06/14/20 10:20 Temperature 97.8 F Pulse Rate 66 Respiratory 18 Rate Blood Pressure 117/61 O2 Sat by Pulse Oximetry (%) low bp discontinue clonidine 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 zofran 8 mg sl x 1 discontinue motrin increase vistaril to 50mg po bentyl prn not utilized bentyl 20mg po x 1 Objective: 06/14/20 11:37 Vital Signs - 24 hr 06/13/20 06/13/20 06/13/20 13:44 16:52 21:02 Temperature 97.3 F L 98.4 F 97.1 F L Pulse Rate 70 86 96 H Respiratory 18 16 16 Rate Blood Pressure 98/58 L 120/60 107/63 O2 Sat by Pulse 99 Oximetry (%) 06/14/20 10:20 Temperature 97.8 F Pulse Rate 66 Respiratory 18 Rate Blood Pressure 117/61 O2 Sat by Pulse Oximetry (%) Laboratory Tests 06/13/20 06/13/20 06/13/20 07:50 07:50 07:50 WBC 6.6 RBC 4.84 Hgb 11.3 L Hct 34.8 L MCV 71.9 L MCH 23.4 L MCHC 32.5 RDW 18.1 H Plt Count 258 MPV 8.6 Sodium 140 Potassium 3.9 Chloride 105 Carbon Dioxide 29 Anion Gap 5 L BUN 14.5 Creatinine 0.8 Est GFR (CKD-EPI)AfAm 148.00 Est GFR (CKD-EPI)NonAf 127.70 Random Glucose 90 Calcium 9.0 Total Bilirubin 0.5 AST 48 H ALT 115 H Alkaline Phosphatase 98 Total Protein 7.4 Albumin 3.2 L Syphilis Serology Non-reactive HIV Ag/Ab Combo Qual 06/13/20 07:50 WBC RBC Hgb Hct MCV MCH MCHC RDW Plt Count MPV Sodium Potassium Chloride Carbon Dioxide Anion Gap BUN Creatinine Est GFR (CKD-EPI)AfAm Est GFR (CKD-EPI)NonAf Random Glucose Calcium Total Bilirubin AST ALT Alkaline Phosphatase Total Protein Albumin Syphilis Serology HIV Ag/Ab Combo Qual Negative lab noted Assessment: 06/14/20 11:37 benzo and opiate withdrawal Plan: valium and methadone regiments
[2020-06-14] MEDS ORDERED: DICYCLOMINE HCL 10 MG CAPSULE PO ONE (11:35)
[2020-06-14] MEDS: hydrOXYzine PAMOATE 50 MG CAPSULE (FP) PO SCH ×3 (12:20→23:58)
--- NOTE | 2020-06-14 18:01 | PN ---
S Progress Note Note: 19 y.o. male c/o nausea / vomiting / abdominal pain , unable to tolerate p.o. liquids/ food or meds x 2-3 days per pt . pt has not had Valium today , held due to vomiting . Vital Signs - 24 hr 06/13/20 06/14/20 06/14/20 21:02 10:20 16:42 Temperature 97.1 F L 97.8 F 98.4 F Pulse Rate 96 H 66 71 Respiratory 16 18 18 Rate Blood Pressure 107/63 117/61 100/49 L O2 Sat by Pulse 99 Oximetry (%) O : dry mucosae CV RRR S1 S2 resp : CTA b/ L Abd : diffuse tenderness P : Tigan i.m. 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
[2020-06-14] MEDS ORDERED: LORazepam 2 MG/ML SDV VIAL IM ONE (18:03)
--- NOTE | 2020-06-14 19:43 | PN ---
[facility] Progress Note Note: Pt is 19 yo M admitted for detox from alcohol, benzo, and heroin with valium and methadone. Pt has diffuse abdominal pain with guarding; has not been able to tolerate PO x 2-3 days. Pt did not receive his valium today. IM tigan and IM ativan administered. Pt's nausea and abd pain refractory to treatment. Pt transferred to [facility] ED for evaluation and treatment. Dehydration + r/o pancreatitis. Last Vital Signs Temp Pulse Resp BP Pulse Ox 97.5 F L 57 L 17 118/67 98 06/14/20 19:39 06/14/20 19:35 06/14/20 19:35 06/14/20 19:35 06/14/20 19:35
[2020-06-14] MEDS: MELATONIN 5 MG TABLETS PO SCH (23:57)
[2020-06-14] MEDS: THIAMINE HCL 100 MG TABLET (FP) PO SCH (23:58)
[2020-06-15] MEDS ORDERED: MASKS NR ONE (05:38)
[2020-06-15] MEDS ORDERED: diazePAM 5 MG TABLET PO SCH (06:00)
[2020-06-15] MEDS: hydrOXYzine PAMOATE 50 MG CAPSULE (FP) PO SCH ×2 (06:12→10:55)
--- NOTE | 2020-06-15 06:41 | PN ---
[facility] Progress Note Note: Patient came back from emergency room where room he was evaluated with complaint of diffuse abdominal pain. As per emergency room: -Labs were reviewed and there was significant concerning findings. -EKG was reviewed and indicated sinus bradycardia, 57bpm, normal axis, normal intervals, no TWIs, T wave flattening in III, no ST elevations or depressions, no significant change from prior - CT of the Abdomen and Pelvis was reviewed and there was no acute pathology Vital Signs Temperature 97.7 F 06/15/20 06:36 Pulse Rate 58 L 06/15/20 06:36 Respiratory Rate 18 06/15/20 06:36 Blood Pressure 101/60 06/15/20 06:36 O2 Sat by Pulse Oximetry (%) 98 06/15/20 06:36 Laboratory Last Values WBC 6.6 K/mm3 (4.0-10.0) 06/13/20 07:50 RBC 4.84 M/mm3 (4.00-5.60) 06/13/20 07:50 Hgb 11.3 GM/dL (11.7-16.9) L 06/13/20 07:50 Hct 34.8 % (35.4-49) L 06/13/20 07:50 MCV 71.9 fl (80-96) L 06/13/20 07:50 MCH 23.4 pg (25.7-33.7) L 06/13/20 07:50 MCHC 32.5 g/dl (32.0-35.9) 06/13/20 07:50 RDW 18.1 % (11.9-15.9) H 06/13/20 07:50 Plt Count 258 K/MM3 (134-434) 06/13/20 07:50 MPV 8.6 fl (7.5-11.1) 06/13/20 07:50 Sodium 140 mmol/L (136-145) 06/13/20 07:50 Potassium 3.9 mmol/L (3.5-5.1) 06/13/20 07:50 Chloride 105 mmol/L (98-107) 06/13/20 07:50 Carbon Dioxide 29 mmol/L (21-32) 06/13/20 07:50 Anion Gap 5 MMOL/L (8-16) L 06/13/20 07:50 BUN 14.5 mg/dL (7-18) 06/13/20 07:50 Creatinine 0.8 mg/dL (0.55-1.3) 06/13/20 07:50 Est GFR (CKD-EPI)AfAm 148.00 06/13/20 07:50 Est GFR (CKD-EPI)NonAf 127.70 06/13/20 07:50 Random Glucose 90 mg/dL (74-106) 06/13/20 07:50 Calcium 9.0 mg/dL (8.5-10.1) 06/13/20 07:50 Total Bilirubin 0.5 mg/dL (0.2-1) 06/13/20 07:50 AST 48 U/L (15-37) H 06/13/20 07:50 ALT 115 U/L (13-61) H 06/13/20 07:50 Alkaline Phosphatase 98 U/L (45-117) 06/13/20 07:50 Total Protein 7.4 g/dl (6.4-8.2) 06/13/20 07:50 Albumin 3.2 g/dl (3.4-5.0) L 06/13/20 07:50 Syphilis Serology Non-reactive (NONREACTIVE) 06/13/20 07:50 COVID-19 (BE) Not detected (Not Detected) 06/13/20 08:55 HIV Ag/Ab Combo Qual Negative (NEGATIVE) 06/13/20 07:50 Action: Continue detox
[2020-06-15] MEDS ORDERED: METHADONE (DETOX) 10 MG, METHADONE (DETOX) 5 MG PO ONE (10:00)
[2020-06-15 10:39] VITALS: BP 103/63; PULSE 65; TEMP 97.5
[2020-06-15] MEDS ORDERED: METHADONE HCL 5 MG TABLET (FOR DETOX USE ONLY) ONE (10:52)
[2020-06-15] MEDS ORDERED: METHADONE HCL 10 MG TABLET (FOR DETOX USE ONLY) ONE (10:52)
[2020-06-15] MEDS: NICOTINE 21 MG/24 HOURS TOPICAL PATCH TD SCH (10:54)
[2020-06-15] MEDS: PENICILLIN V POTASSIUM 500 MG TABLET PO SCH (10:55)
[2020-06-15] MEDS: PRENATAL VITAMINS W/ FOLIC ACID TABLET (FP) PO SCH (10:56)
--- NOTE | 2020-06-15 12:49 | DS ---
[facility] Detox Discharge Summary Admission Date: 06/12/20 Discharge Date: 06/15/20 - History Present History: Opioid Dependence, Sedative Dependence Additional Comments: 19 years old male was admitted on 06/12/20 for benzo and opiate withdrawal sx management treated with valium and methadone detox regiments mr madrid continues experiencing gastric discomfort return to ER transferred back to [facility] continue detox mr madrid received methadone 15 mg around 11 am requests more valium for withdrawal mr madrid walks out the detox unit prefers not to wait security called escort to property and exist out the building refuses exist physical examine Pertinent Past History: time for discharge 41 minutes treatment team discussing that volunteer detox admission unit should allow patient's autonomy to walk out security called for safety escort encourage returning to patient [facility] admission mr madrid may return to infectious disease provider - Physical Exam Results Vital Signs: Vital Signs Temperature 97.5 F L 06/15/20 10:38 Pulse Rate 65 06/15/20 10:38 Respiratory Rate 18 06/15/20 10:38 Blood Pressure 103/63 06/15/20 10:38 O2 Sat by Pulse Oximetry (%) 98 06/15/20 06:36 Pertinent Admission Physical Exam Findings: benzo and opiate withdrawal Vital Signs - 24 hr 06/14/20 06/14/20 06/14/20 16:42 19:35 19:39 Temperature 98.4 F 97.5 F L Pulse Rate 71 57 L Respiratory 18 17 Rate Blood Pressure 100/49 L 118/67 O2 Sat by Pulse 98 Oximetry (%) 06/15/20 06/15/20 06:36 10:38 Temperature 97.7 F 97.5 F L Pulse Rate 58 L 65 Respiratory 18 18 Rate Blood Pressure 101/60 103/63 O2 Sat by Pulse 98 Oximetry (%) Laboratory Tests 06/13/20 06/13/20 06/13/20 07:50 07:50 07:50 WBC 6.6 RBC 4.84 Hgb 11.3 L Hct 34.8 L MCV 71.9 L MCH 23.4 L MCHC 32.5 RDW 18.1 H Plt Count 258 MPV 8.6 Sodium 140 Potassium 3.9 Chloride 105 Carbon Dioxide 29 Anion Gap 5 L BUN 14.5 Creatinine 0.8 Est GFR (CKD-EPI)AfAm 148.00 Est GFR (CKD-EPI)NonAf 127.70 Random Glucose 90 Calcium 9.0 Total Bilirubin 0.5 AST 48 H ALT 115 H Alkaline Phosphatase 98 Total Protein 7.4 Albumin 3.2 L Syphilis Serology Non-reactive COVID-19 (BE) HIV Ag/Ab Combo Qual 06/13/20 06/13/20 07:50 08:55 WBC RBC Hgb Hct MCV MCH MCHC RDW Plt Count MPV Sodium Potassium Chloride Carbon Dioxide Anion Gap BUN Creatinine Est GFR (CKD-EPI)AfAm Est GFR (CKD-EPI)NonAf Random Glucose Calcium Total Bilirubin AST ALT Alkaline Phosphatase Total Protein Albumin Syphilis Serology COVID-19 (BE) Not detected HIV Ag/Ab Combo Qual Negative lab noted - Treatment Hospital Course: Detox Protocol Followed, Responded well Patient has Accepted a Rehab [facility]erral [facility] - Medication Discharge Medications: Ambulatory Orders NK [No Known Home Medication] 06/12/20 - Diagnosis (1) Opioid dependence with withdrawal Status: Acute (2) Sedative, hypnotic or anxiolytic dependence with withdrawal, uncomplicated Status: Acute (3) HIV (human immunodeficiency virus infection) Status: Chronic Qualifiers: HIV symptom status: asymptomatic Qualified Code(s): Z21 - Asymptomatic human immunodeficiency virus [HIV] infection status (4) Nicotine dependence Status: Acute Qualifiers: Nicotine product type: cigarettes Substance use status: in withdrawal Qualified Code(s): F17.213 - Nicotine dependence, cigarettes, with withdrawal (5) Substance induced mood disorder Status: Suspected - AMA Did Patient Leave Against Medical Advice: Yes CIWA Score - CIWA Score Nausea/Vomitin (feels nausea tolerated methadone well) Muscle Tremors: 2 Anxiety: 3 Agitation: 2 Paroxysmal Sweats: No Perspiration Orientation: 0-Oriented Tacttile Disturbances: 0-None Auditory Disturbances: 0-None Visual Disturbances: 0-None Headache: 0-None Present CIWA-Ar Total Score: 9 COWS (PN) - Opiate Withdrawal Resting Pulse: 0= NV 80 or Below Sweatin= No chills or Flushing Restless Observation: 0= Sits Still Pupil Size: 0= Normal to Room Light Bone or Joint Aches: 1= Mild Discomfort Runny Nose/ Eye Tearin= Nasal Congestion GI Upset > 30mins: 2= Nausea/Diarrhea Tremor Observation of Outstretched Hands: 2= Slight Tremor Visible Yawning Observation: 1= 1-2x During Session Anxiety or Irritability: 2=Irritable/Anxious Goose Flesh Skin: 0=Smooth Skin COWS Score: 9
[2020-06-16] MEDS ORDERED: diazePAM 5 MG TABLET PO ONE (06:00)
[2020-06-16] MEDS ORDERED: METHADONE HCL 10 MG TABLET (FOR DETOX USE ONLY) PO ONE (10:00)
[2020-06-17] MEDS ORDERED: METHADONE HCL 5 MG TABLET (FOR DETOX USE ONLY) PO ONE (06:00)
== END 2020-06-15 11:15 | disposition left against medical advice (07) | DRG 770 ==
LOC: YASAS 19:03 → Y3N 21:59
PROVIDERS: ADMIT Allergy & Immunology; ATTEND Allergy & Immunology
PROC: HZ2ZZZZ Detoxification Services for Substance Abuse Treatment (ICD-10-PCS; principal; 2020-06-12)
DX: F10.230 Alcohol dependence with withdrawal, uncomplicated (principal); F11.23 Opioid dependence with withdrawal; F13.230 Sedative, hypnotic or anxiolytic dependence with withdrawal, uncomplicated; F14.20 Cocaine dependence, uncomplicated; F12.20 Cannabis dependence, uncomplicated; F17.213 Nicotine dependence, cigarettes, with withdrawal; F19.282 Other psychoactive substance dependence with psychoactive substance-induced sleep disorder; F19.24 Other psychoactive substance dependence with psychoactive substance-induced mood disorder; Z21 Asymptomatic human immunodeficiency virus [HIV] infection status; R10.9 Unspecified abdominal pain; R11.2 Nausea with vomiting, unspecified; Z86.69 Personal history of other diseases of the nervous system and sense organs; Z88.8 Allergy status to other drugs, medicaments and biological substances; Z91.013 Allergy to seafood
CPT/HCPCS: 36415; 80053; 85027; 86780; 87389; Q0162; U0003

== ENCOUNTER 2020-06-14 20:10 | Emergency (ER) | payer OTHER ==
[2020-06-14 20:20] VITALS: TEMP 98.8; BMI 18.8
--- OUTSIDE RECORDS SUMMARY | 2020-06-14 20:36 | XMS ---
:2000 Author Organization [facility] Support Name Relationship Address Phone UE, UNEMPLOYED Unavailable Unavailable Unavailable JAYCE MENCHACA [address] [place] [address] UE Unavailable Unavailable Unavailable TEODORO RODRIGUEZ SELF / SAME PATIENT HOMELESS [phone] [place] [address] JAYCE MENCHACA Mother [address] [place] [address] Re-disclosure Warning The records that you are [...] is protected by Article 27-F of the [facility] Public Health law. If you continue you may haveaccess to information: Regarding HIV / AIDS; Provided by facilities licensed or operated by the [facility] Office of Mental Health; or Provided by the [facility] Office for People With Developmental Disabilities. If such information is present, then the following [facility] mandated warning applies: This information [...] law may result in a fine or longterm sentence or both. A general authorization for the release of medical or other information is NOT sufficient authorization for further disclosure. Insurance Providers Payer name Policy type Policy ID Covered Covered libertarian's Policy P jose / Coverage libertarian ID relationship to Garcia Inf ormation type garcia HEALTH [id number] SP [id number] FIRST HEALTH [id number] SP [id number] FIRST Results ID Date Data Source [id number] 05/05/2020 11:45:00 PM EDT [facility] Name Value Range Interpretation Description Data Sup porting Code Source(s) Document(s ) SARS [facility] coronavirus 2 RNA This lab was ordered by [facility] and reported by [facility]. ID Date Data Source [id number] 04/11/2020 10:00:00 PM EDT [facility] Name Value Range Interpretation Description Data Sup porting Code Source(s) Document(s ) SARS [facility] coronavirus 2 RNA This lab was ordered by [facility] and reported by [facility]. ID Date Data Source [id number] 03/08/2020 08:16:00 AM EDT [facility] Name Value Range Interpretation Description Data Sup porting Code Source(s) Document(s ) SARS [facility] CORONAVIRUS 2 RNA This lab was ordered by [facility] and reported by [facility]. ID Date Data Source [id number] 11/30/2019 07:17:00 AM EDT [facility] Name Value Range Interpretation Description Data Sup porting Code Source(s) Document(s ) 2019 Novel [facility] Coronavirus RNA Interpretation Unspecified Specimen Qualitative BE Probe Detection This lab was ordered by [facility] and reported by [facility]. Procedure
--- NOTE | 2020-06-14 21:56 | PDOC ---
History of Present Illness - General Chief Complaint: Pain, Acute Stated Complaint: ABDOMINAL PAIN Time Seen by Provider: 06/14/20 21:54 Past History - Medical History Allergies/Adverse Reactions: Allergies Allergy/AdvReac Type Severity Reaction Status Date / Time Fish Containing Products Allergy Verified 06/14/20 20:20 chlordiazepoxide AdvReac Mild Verified 06/14/20 20:20 [From Librium] Home Medications: Ambulatory Orders NK [No Known Home Medication] 06/12/20 Anemia: No Asthma: No Cancer: No Cardiac Disorders: No CVA: No COPD: No CHF: No Dementia: No Diabetes: No GI Disorders: No Disorders: No HTN: No Hypercholesterolemia: No Kidney Stones: No Liver Disease: No Seizures: Yes (Etoh-related, 3 yrs. ago) Thyroid Disease: No - Surgical History Abdominal Surgery: No Appendectomy: No Cardiac Surgery: No Cholecystectomy: No Lung Surgery: No Neurologic Surgery: No Orthopedic Surgery: No - Reproductive History Testicular Surgery: No - Psycho-Social/Smoking History Smoking History: Current some day smoker Have you smoked in the past 12 months: Yes Number of Cigarettes Smoked Daily: 10 Cigars Per Day: 0 Information on smoking cessation initiated: No 'Breaking Loose' booklet given: 06/12/20 - Substance Abuse Hx (Audit-C & DAST Scrn) How often the patient has a drink containing alcohol: 2-4 times / month Number of drinks the patient has on a typical day: 1 or 2 How often the patient has six or more drinks on one occasion: Monthly Score: In Men: 4 or > Positive; In Women: 3 or > Positive: 4 Screen Result (Pos requires Nsg. Audit-10AR): Positive In the last yr the pt used illegal drug/Rx for NonMed reason: Yes Score: Yes response is considered Positive: 1 Screen Result (Positive result requires Nsg. DAST-10): Positive *Physical Exam - Vital Signs Last Vital Signs Temp Pulse Resp BP Pulse Ox 98.8 F 55 L 20 113/65 100 06/14/20 20:17 06/14/20 20:17 06/14/20 20:17 06/14/20 20:17 06/14/20 20:17 ED Treatment Course - LABORATORY CBC & Chemistry Diagram: 06/14/20 22:40 06/14/20 22:40 Medical Decision Making - Medical Decision Making 06/14/20 22:23 HPI: 19yo M hx polysubstance abuse (alcohol, benzos, heroin, valium, methadone) BIBA from detox (admitted 2 days ago) c/o 3 days diffuse unknown type constant abdominal pain, nausea, NBNB emesis, and inability to tolerate PO. Endorses rhinorrhea and chills. States sx worse than usual withdrawal. Per NH, pt did not receive his valium today but was given IM tigan and ativan. Pt's N/V/pain was refractory to tx. Denies urinary sx, testicular pain or swelling, penile discharge or pain, D/C, abdominal surgeries, sick contacts, travel, CP, SOB, blood in stool. ROS: Constitutional: Positive for chills, diaphoresis. Negative for fever. HENT: Positive for rhinorrhea. Negative for sore throat, rhinorrhea, congestion. Eyes: Negative for visual disturbance. Respiratory: Negative for shortness of breath, cough. Cardiovascular: Negative for chest pain. Gastrointestinal: Positive for abdominal pain, nausea, and vomiting. Negative for blood in stool, constipation, diarrhea. Genitourinary: Negative for dysuria, flank pain, and hematuria. Musculoskeletal: Negative for myalgias, back pain, and neck pain. Skin: Negative for rash. Neurological: Negative for light-headedness, dizziness, vertigo, syncope, weakness, numbness and headaches. Psychiatric/Behavioral: Positive for polysubstance abuse and withdrawal. Negative for confusion. PE: Gen: Alert, NAD, comfortable-appearing. HEENT: PERRL, EOMI, dry MM, NCAT. No conjunctival pallor. Sclera are non- icteric. CV: Regular rate and rhythm. No murmurs, rubs, or gallops. PULM: No resp distress. CTAB, no wheezes, rales, or rhonchi. ABD: soft, +diffuse abdominal pain w/guarding, ND, no rebound tenderness, no CVA tenderness. BACK: No TTP of c/t/l-spine. No step-offs or deformities. MSK: No bony deformities. 2+ pulses in all extremities. NEURO: AAOx3. PERRL. No gross CN deficits. Strength and sensation grossly intact throughout. EXTREMITIES: No cyanosis. No clubbing. No edema. PSYCH: Normal mood and thought pattern. SKIN: Warm and dry. Normal capillary refill. No rashes. No jaundice. MDM: 19yo M hx polysubstance abuse (alcohol, benzos, heroin, valium, methadone) BIBA from detox (admitted 2 days ago) with 3 days diffuse unknown type constant abdominal pain, nausea, NBNB emesis, and inability to tolerate PO. Hemodynamically stable, afebrile, diffuse tender abdomen. Ddx: withdrawal, intox, pancreatitis, appendicitis, cholelithiasis/cystitis, colitis, diverticulitis, viral syndrome, infection, metabolic derangement, anemia -GI cocktail/pain management -IVF -Labs -EKG -CTAP -Dispo: pending w/u and reassessment 06/15/20 03:54 Labs reviewed. No concerning findings. EKG reviewed: sinus bradycardia, 57bpm, normal axis, normal intervals, no TWIs, T wave flattening in III, no ST elevations or depressions, no significant change from prior CTAP reviewed: No acute pathology Pt tolerating PO, feeling better, safe for d/c. Will return to detox facility. Will discharge home with PCP f/u. Return precautions given. Pt understands all discharge instructions and all questions were answered. Discharge - Discharge Information Problems reviewed: Yes Clinical Impression/Diagnosis: Abdominal pain Condition: Improved Disposition: HOME - Admission No - Follow up/Referral Referrals: ON STAFF,NOT [Primary Care Provider] - - Patient Discharge Instructions Additional Instructions: You have been seen in the Emergency Department for your abdominal pain. Your EKG, CT scan of your abdomen, and labs show no signs concerning for an emergent condition such as pancreatitis or appendicitis. If you experience pain, you can take Tylenol or Ibuprofen as directed on the medication bottle, but do not exceed 3g of Ibuprofen or 4g of Tylenol a day. Follow-up with your primary care doctor within 1 week. Return to the Emergency Department immediately if you experience chest pain, difficulty breathing, blood in your stool, passing out, or any other new or worsening symptom. Good luck with your recovery! - Post Discharge Activity
[2020-06-14] MEDS ORDERED: SODIUM CHLORIDE 0.9% 500 ML INFUS.BAG IV ONE (22:14)
[2020-06-14] MEDS ORDERED: ACETAMINOPHEN 1000 MG/100 ML VIAL (NON FORMULARY) IVPB ONE (22:14)
[2020-06-14] MEDS ORDERED: FAMOTIDINE 20 MG/50 ML IVPB 20 MG/50 ML MG IVPB ONE ×2 (22:14→22:59)
[2020-06-14] MEDS ORDERED: ONDANSETRON 4 MG/2 ML VIAL IVPUSH ONE (22:14)
--- NOTE | 2020-06-14 22:25 | PDOC ---
Attending Attestation - Resident Resident Name: Gertrudis Mcmanus - ED Attending Attestation I have performed the following: I have examined & evaluated the patient, The case was reviewed & discussed with the resident, I agree w/resident's findings & plan, Exceptions are as noted - HPI HPI: 06/14/20 22:24 This 19 yo male BIBA from [facility] detox for diffuse abdominal pain and vomiting for 3 days - Physicial Exam PE: 06/14/20 22:25 Slender 19 yo male is resting on the gurney w c/o abdominal pain head ncat neck supple lungs cta b.l cvs [id number] abdomen diffuse tenderness skin warm and dry extremities no edema neuro axox3,motor strength 5/5 b/l psych anxious - Medical Decision Making 06/14/20 22:27 plan IVF,zofran,cbc,comp, ct scan abd/pelvis Discharge - Discharge Information Problems reviewed: Yes Clinical Impression/Diagnosis: Abdominal pain Condition: Improved Disposition: HOME - Follow up/Referral Referrals: ON STAFF,NOT [Primary Care Provider] - - Patient Discharge Instructions Additional Instructions: You have been seen in the Emergency Department for your abdominal pain. Your EKG, CT scan of your abdomen, and labs show no signs concerning for an emergent condition such as pancreatitis or appendicitis. If you experience pain, you can take Tylenol or Ibuprofen as directed on the medication bottle, but do not exceed 3g of Ibuprofen or 4g of Tylenol a day. Follow-up with your primary care doctor within 1 week. Return to the Emergency Department immediately if you experience chest pain, difficulty breathing, blood in your stool, passing out, or any other new or worsening symptom. Good luck with your recovery! - Post Discharge Activity
[2020-06-14] MEDS ORDERED: ACETAMINOPHEN INJECTION 100 ML IVPB ONE (22:59)
[2020-06-14 23:34] LABS: BASO % 0.3 % (0-2.0); HEMOGLOBIN 13.2 GM/dL (11.7-16.9); LYMPH % 31.2 % (8-40); MCH 23.6 pg (25.7-33.7); MCHC 32.9 g/dl (32.0-35.9); MEAN CELL VOLUME 71.6 fl (80-96); MEAN PLT VOLUME 8.7 fl (7.5-11.1); MONO % 11.8 % (3.8-10.2); NEUT % 56.7 % (42.8-82.8); PLATELET COUNT 343 K/MM3 (134-434); RBC 5.59 M/mm3 (4.00-5.60); RDW 17.8 % (11.9-15.9)
[2020-06-15 00:03] LABS: ALBUMIN 3.8 g/dl (3.4-5.0); BILIRUBIN,TOTAL 0.3 mg/dL (0.2-1); BLOOD UREA NITROGEN 14.4 mg/dL (7-18); CALCIUM 9.9 mg/dL (8.5-10.1); CREATININE 0.9 mg/dL (0.55-1.3); POTASSIUM 3.7 mmol/L (3.5-5.1); TOT PROT 9.1 g/dl (6.4-8.2)
[2020-06-15 04:01] VITALS: BP 110/60; PULSE 58
--- NOTE | 2020-06-15 09:54 | EKG ---
Test Reason : Blood Pressure : / mmHG Vent. Rate : 057 BPM Atrial Rate : 057 BPM P-R Int : 128 ms QRS Dur : 098 ms QT Int : 466 ms P-R-T Axes : 016 054 026 degrees QTc Int : 453 ms SINUS BRADYCARDIA WITH SINUS ARRHYTHMIA OTHERWISE NORMAL ECG WHEN COMPARED WITH ECG OF 11-APR-2020 20:57, NO SIGNIFICANT CHANGE WAS FOUND Confirmed by Jacky Huntley MD ([id number]) on 06/15/2020 9:53:24 AM Referred By: Confirmed By:Jacky Huntley MD
== END 2020-06-15 04:58 | disposition home or self-care (01) ==
LOC: JER 20:10
PROC: 3E0333Z Introduction of Anti-inflammatory into Peripheral Vein, Percutaneous Approach (ICD-10-PCS; principal; 2020-06-14)
PROC: 3E033GC Introduction of Other Therapeutic Substance into Peripheral Vein, Percutaneous Approach (ICD-10-PCS; 2020-06-14)
DX: R10.9 Unspecified abdominal pain (principal)
CPT/HCPCS: 36415; 74177-TC; 80053; 83690; 85025; 93005; 93010; 99285-25; J0131

== ENCOUNTER 2020-07-13 19:36 | Emergency (ER) | payer OTHER ==
[2020-07-13 19:48] VITALS: TEMP 97.6; BMI 21.7
--- OUTSIDE RECORDS SUMMARY | 2020-07-13 19:58 | XMS ---
:2000 [facility] Support Name Relationship Address Phone UE, UNEMPLOYED Unavailable Unavailable Unavailable JAYCE MENCHACA MOTHER [address] [place] [address] UE Unavailable Unavailable Unavailable TEODORO RODRIGUEZ SELF / SAME PATIENT HOMELESS [phone] [place] [address] JAYCE MENCHACA Unavailable [address] [phone] [place] [address] Re-disclosure Warning The records that you are [...] is protected by Article 27-F of the [facility] Public Health law. If you continue you may haveaccess to information: Regarding HIV / AIDS; Provided by facilities licensed or operated by the [facility] Office of Mental Health; or Provided by the [facility] Office for People With Developmental Disabilities. If such information is present, then the following [facility] mandated warning applies: This information has been [...] law may result in a fine or nursing home sentence or both. A general authorization for the release of medical or other information is NOT sufficient authorization for further disclosure. Insurance Providers Payer name Policy type Policy ID Covered Covered democrat's Policy P jose / Coverage democrat ID relationship to Garcia Inf ormation type garcia HEALTH [id number] SP [id number] FIRST [employer] [id number] SP [id number] FIRST Results ID Date Data Source [id number] 06/13/2020 08:55:00 AM EDT [facility] Name Value Range Interpretation Description Data Sup porting Code Source(s) Document(s ) SARS [facility] coronavirus 2 RNA This lab was ordered by [facility] and reported by [facility]. ID Date Data Source [id number] 05/05/2020 11:45:00 PM EDT [facility] Name Value Range Interpretation Description Data Sup porting Code Source(s) Document(s ) SARS [facility] coronavirus 2 RNA This lab was ordered by [facility] and reported by [facility]. ID Date Data Source [id number] 04/11/2020 10:00:00 PM EDT [facility] Name Value Range Interpretation Description Data Sup porting Code Source(s) Document(s ) SARS [facility] coronavirus 2 RNA This lab was ordered by [facility] and reported by [facility]. ID Date Data Source [id number] 03/08/2020 08:16:00 AM EDT [facility] Name Value Range Interpretation Description Data Sup porting Code Source(s) Document(s ) SARS [facility] CORONAVIRUS 2 RNA This lab was ordered by [facility] and reported by [facility]. ID Date Data Source [id number] 11/30/2019 07:17:00 AM EDT [facility] Name Value Range Interpretation Description Data Sup porting Code Source(s) Document(s ) 2019 Novel [facility] Coronavirus RNA Interpretation Unspecified Specimen Qualitative BE Probe Detection This lab was ordered by [facility] and reported by [facility]. Procedure
--- NOTE | 2020-07-13 20:12 | PDOC ---
History of Present Illness - General Chief Complaint: Blood Pressure Problem Stated Complaint: HYPOTENSION Time Seen by Provider: 07/13/20 20:02 History Source: Patient - History of Present Illness Initial Comments: 07/13/20 20:06 19M w/hx opiate use disorder sent for evaluation from [facility] for evaluation of hypotension. He denies any symptoms at this time, denies any weakness, lightheadedness, confusion, vertigo, difficulty ambulating, chest pain, or difficulty breathing. He denies any symptoms at this time. Past History - Medical History Allergies/Adverse Reactions: Allergies Allergy/AdvReac Type Severity Reaction Status Date / Time Fish Containing Products Allergy Verified 06/14/20 20:20 chlordiazepoxide AdvReac Mild Verified 06/14/20 20:20 [From Librium] Home Medications: Ambulatory Orders NK [No Known Home Medication] 06/12/20 Anemia: No Asthma: No Cancer: No Cardiac Disorders: No CVA: No COPD: No CHF: No Dementia: No Diabetes: No GI Disorders: No Disorders: No HTN: No Hypercholesterolemia: No Kidney Stones: No Liver Disease: No Seizures: Yes (Etoh-related, 3 yrs. ago) Thyroid Disease: No - Surgical History Abdominal Surgery: No Appendectomy: No Cardiac Surgery: No Cholecystectomy: No Lung Surgery: No Neurologic Surgery: No Orthopedic Surgery: No - Reproductive History Testicular Surgery: No - Psycho-Social/Smoking History Smoking History: Current every day smoker Have you smoked in the past 12 months: Yes Number of Cigarettes Smoked Daily: 10 Cigars Per Day: 0 Information on smoking cessation initiated: No 'Breaking Loose' booklet given: 06/12/20 - Substance Abuse Hx (Audit-C & DAST Scrn) How often the patient has a drink containing alcohol: 2-3 times / week Number of drinks the patient has on a typical day: 1 or 2 How often the patient has six or more drinks on one occasion: Weekly Score: In Men: 4 or > Positive; In Women: 3 or > Positive: 6 Screen Result (Pos requires Nsg. Audit-10AR): Positive In the last yr the pt used illegal drug/Rx for NonMed reason: Yes Score: Yes response is considered Positive: 1 Screen Result (Positive result requires Nsg. DAST-10): Positive Review of Systems - Review of Systems Able to Perform ROS?: Yes Comments:: 07/13/20 20:21 GENERAL/CONSTITUTIONAL: No fever or chills. No weakness. HEAD, EYES, EARS, NOSE AND THROAT: No change in vision. No ear pain or discharge. No sore throat. CARDIOVASCULAR: No chest pain or shortness of breath RESPIRATORY: No cough, wheezing, or hemoptysis. GASTROINTESTINAL: No nausea, vomiting, diarrhea or constipation. GENITOURINARY: No dysuria, frequency, or change in urination. MUSCULOSKELETAL: No joint or muscle swelling or pain. No neck or back pain. SKIN: No rash NEUROLOGIC: No headache, vertigo, loss of consciousness, or change in strength/sensation. ENDOCRINE: No increased thirst. No abnormal weight change HEMATOLOGIC/LYMPHATIC: No anemia, easy bleeding, or history of blood clots. ALLERGIC/IMMUNOLOGIC: No hives or skin allergy. *Physical Exam - Vital Signs Last Vital Signs Temp Pulse Resp BP Pulse Ox 97.6 F 76 20 107/64 100 07/13/20 19:45 07/13/20 19:45 07/13/20 19:45 07/13/20 19:45 07/13/20 19:45 - Physical Exam 07/13/20 20:21 GENERAL: Awake, alert, and fully oriented, in no acute distress HEAD: No signs of trauma, normocephalic, atraumatic EYES: PERRLA, EOMI, sclera anicteric, conjunctiva clear ENT: Auricles normal inspection, hearing grossly normal, nares patent, oropharynx clear without exudates. Moist mucosa NECK: Normal ROM, supple, no lymphadenopathy, JVD, or masses LUNGS: No distress, speaks full sentences, clear to auscultation bilaterally HEART: Regular rate and rhythm, normal S1 and S2, no murmurs, rubs or gallops, peripheral pulses normal and equal bilaterally. ABDOMEN: Soft, nontender, normoactive bowel sounds. No guarding, no rebound. No masses EXTREMITIES : Normal inspection, Normal range of motion, no edema. No clubbing or cyanosis NEUROLOGICAL: Cranial nerves II through XII grossly intact. Normal speech, normal gait, no focal sensorimotor deficits SKIN: Warm, Dry, normal turgor, no rashes or lesions noted Medical Decision Making - Medical Decision Making 07/13/20 20:12 19M w/hx opiate use disorder presents for evaluation of hypotension, normotensive on arrival and asymptomatic. Plan: Discharge Discharge - Discharge Information Problems reviewed: Yes Clinical Impression/Diagnosis: Heroin dependence Condition: Stable Disposition: HOME - Admission No - Follow up/Referral - Patient Discharge Instructions Patient Printed Discharge Instructions: DI for Hypotension Additional Instructions: You were seen in the ER for a blood pressure evaluation. Your blood pressure was normal on arrival and on re-check. Follow up with your primary care physician as needed. Return to the ER if you develop weakness, difficulty walking, chest pain, or difficulty breathing. - Post Discharge Activity
--- NOTE | 2020-07-13 20:30 | PDOC ---
Documentation entered by Fam Suero SCRIBE, acting as scribe for Lucie Otto MD. Lucie Otto MD: This documentation has been prepared by the scribe, Fam Lozada SCRIBE, under my direction and personally reviewed by me in its entirety. I confirm that the documentation accurately reflects all work, treatment, procedures, and medical decision making performed by me. Attending Attestation - Resident Resident Name: Victorino Rudolph - ED Attending Attestation I have performed the following: I have examined & evaluated the patient, The case was reviewed & discussed with the resident, I agree w/resident's findings & plan, Exceptions are as noted - HPI HPI: 07/13/20 20:05 The patient is a 19 year old male with a significant past medical history of who presents to the emergency department, [facility] sent from [facility], for evaluation of low blood pressure that was discovered tonight. The patient is asymptomatic. The patient denies chest/abdominal/back pain, cough, and shortness of breath. Denies fever, chills, nausea, vomiting, and/or any GI symptoms. Denies any symptoms. Denies any other symptoms. Allergies: fish containing products, chlordiazepoxide Social Hx: The patient is currently in [facility] for heroin and Xanax. PCP: Dr. Derian Montez 07/13/20 20:06 - Physicial Exam PE: 07/13/20 20:02 GENERAL: Slender ,conversant 19 yo nenita SAM from [facility] intake for hypotension but his blood pressure =109/65 when I evaluated him HEENT: Normocephalic, atraumatic. NECK: Supple. Full ROM. No JVD. CARDIOVASCULAR: Regular rate and rhythm. PULMONARY: No evidence of respiratory distress. Lungs clear to auscultation bilaterally ABDOMINAL: Soft. Non-tender. Non-distended. No rebound or guarding. MUSCULOSKELATAL No bony deformities or tenderness. EXTREMITIES: No cyanosis. SKIN: Warm and dry. . NEUROLOGICAL: Alert, awake, appropriate. PSYCHIATRIC: Cooperative. Good eye contact. Appropriate mood and affect. 07/13/20 20:27 - Medical Decision Making 07/13/20 20:31 pt was being evaluated at [facility] for heroin detox and at that time his BP was low. However he is normotensive now and has no complaints at this time Discharge - Discharge Information Problems reviewed: Yes Clinical Impression/Diagnosis: Heroin dependence Condition: Stable Disposition: HOME - Follow up/Referral - Patient Discharge Instructions Patient Printed Discharge Instructions: DI for Hypotension Additional Instructions: You were seen in the ER for a blood pressure evaluation. Your blood pressure was normal on arrival and on re-check. Follow up with your primary care physician as needed. Return to the ER if you develop weakness, difficulty walking, chest pain, or difficulty breathing. - Post Discharge Activity
[2020-07-13 20:33] VITALS: BP 109/65; PULSE 69
== END 2020-07-13 20:30 | disposition home or self-care (01) ==
LOC: JER 19:36
DX: F11.20 Opioid dependence, uncomplicated (principal)
CPT/HCPCS: 99282-25

== ENCOUNTER 2020-08-21 09:08 | Inpatient (IN) | payer OTHER ==
[2020-08-21 12:24] VITALS: BMI 25.0
[2020-08-21] MEDS ORDERED: ACETAMINOPHEN 325 MG TABLET (FP) PO PRN ×2 (12:50)
[2020-08-21] MEDS ORDERED: MAG HYDROX/AL HYDROX/SIMETH 30 ML UNIT-DOSE CUP PO PRN (12:50)
[2020-08-21] MEDS ORDERED: IBUPROFEN 400 MG TABLET (FP) PO PRN (12:50)
[2020-08-21] MEDS ORDERED: MAGNESIUM HYDROX 2400MG/30ML ORAL SUSPENSION 30 ML CUP PO PRN (12:50)
[2020-08-21] MEDS ORDERED: MENTHOL/PHENOL 1 EACH UD MM PRN (12:50)
[2020-08-21] MEDS ORDERED: ONDANSETRON *ODT* 4 MG TABLET SL PRN (12:50)
[2020-08-21] MEDS ORDERED: MAGNESIUM CITRATE 300 ML BOTTLE PO PRN (12:50)
[2020-08-21] MEDS ORDERED: MELATONIN 5 MG TABLETS PO PRN (12:50)
[2020-08-21] MEDS ORDERED: hydrOXYzine PAMOATE 25 MG CAPSULE (FP) PO PRN (12:50)
[2020-08-21] MEDS ORDERED: BISMUTH SUBSALICYLATE 524 MG/30 ML UD PO PRN (12:50)
[2020-08-21] MEDS ORDERED: diazePAM 5 MG TABLET PO ONE (12:52)
[2020-08-21] MEDS ORDERED: METHADONE HCL 10 MG TABLET (FOR DETOX USE ONLY) PO ONE (12:53)
[2020-08-21] MEDS ORDERED: cloNIDine HCL 0.1 MG TABLET PO PRN (12:53)
[2020-08-21] MEDS: NICOTINE 14 MG/24 HOURS TOPICAL PATCH TD SCH (13:36)
[2020-08-21] MEDS: diazePAM 5 MG TABLET PO SCH ×2 (17:51→22:07)
[2020-08-21] MEDS: diazePAM 5 MG TABLET PO PRN (21:06)
[2020-08-21] MEDS: THIAMINE HCL 100 MG TABLET (FP) PO SCH (21:08)
[2020-08-21] MEDS: QUEtiapine FUMARATE 50 MG TABLET PO SCH (21:08)
[2020-08-22] MEDS: diazePAM 5 MG TABLET PO SCH ×4 (06:55→22:19)
[2020-08-22] MEDS ORDERED: METHADONE HCL 10 MG TABLET (FOR DETOX USE ONLY) ONE (08:39)
[2020-08-22] MEDS ORDERED: METHADONE HCL 5 MG TABLET (FOR DETOX USE ONLY) ONE (08:40)
[2020-08-22 09:19] LABS: POTASSIUM 4.3 mmol/L (3.5-5.1)
[2020-08-22 09:20] LABS: HEMATOCRIT 37.5 % (35.4-49); MCHC 31.9 g/dl (32.0-35.9); MEAN CELL VOLUME 72.1 fl (80-96); MEAN PLT VOLUME 8.6 fl (7.5-11.1); PLATELET COUNT 295 K/MM3 (134-434); WHITE BLOOD COUNT 8.5 K/mm3 (4.0-10.0)
[2020-08-22 09:22] LABS: ALBUMIN 3.3 g/dl (3.4-5.0); CALCIUM 9.2 mg/dL (8.5-10.1)
[2020-08-22 09:26] LABS: CREATININE 0.8 mg/dL (0.55-1.3)
[2020-08-22 09:27] LABS: BILIRUBIN,TOTAL 0.5 mg/dL (0.2-1); TOT PROT 7.6 g/dl (6.4-8.2)
[2020-08-22] MEDS: PRENATAL VITAMINS W/ FOLIC ACID TABLET (FP) PO SCH (10:00)
[2020-08-22] MEDS ORDERED: METHADONE (DETOX) 20 MG, METHADONE (DETOX) 5 MG PO ONE (10:00)
[2020-08-22] MEDS: NICOTINE 14 MG/24 HOURS TOPICAL PATCH TD SCH (10:01)
[2020-08-22] MEDS: diazePAM 5 MG TABLET PO PRN (13:23)
[2020-08-22 13:31] LABS: HIV INTERPRETATION NEGATIVE (NEGATIVE)
[2020-08-22] MEDS: hydrOXYzine PAMOATE 25 MG CAPSULE (FP) PO SCH ×3 (17:17→23:27)
[2020-08-22] MEDS: QUEtiapine FUMARATE 50 MG TABLET PO SCH (22:19)
[2020-08-22] MEDS: THIAMINE HCL 100 MG TABLET (FP) PO SCH (22:19)
[2020-08-22] MEDS: METHOCARBAMOL 500 MG TABLET PO PRN (22:21)
[2020-08-23] MEDS: diazePAM 5 MG TABLET PO SCH ×3 (06:19→22:49)
[2020-08-23] MEDS: hydrOXYzine PAMOATE 25 MG CAPSULE (FP) PO SCH ×6 (06:19→23:49)
[2020-08-23] MEDS: PRENATAL VITAMINS W/ FOLIC ACID TABLET (FP) PO SCH (09:48)
[2020-08-23] MEDS: diazePAM 5 MG TABLET PO PRN ×2 (09:51→16:30)
[2020-08-23] MEDS ORDERED: METHADONE HCL 10 MG TABLET (FOR DETOX USE ONLY) PO ONE (10:00)
[2020-08-23] MEDS ORDERED: NICOTINE POLACRILEX 4 MG GUM BUC PRN (11:17)
[2020-08-23] MEDS: NICOTINE 14 MG/24 HOURS TOPICAL PATCH TD SCH (11:20)
[2020-08-23] MEDS: NICOTINE 7 MG/24 HOURS TOPICAL PATCH TD SCH (12:16)
[2020-08-23] MEDS: METHOCARBAMOL 500 MG TABLET PO PRN (13:18)
[2020-08-23] MEDS: QUEtiapine FUMARATE 50 MG TABLET PO SCH (22:49)
[2020-08-23] MEDS: THIAMINE HCL 100 MG TABLET (FP) PO SCH (22:49)
[2020-08-24] MEDS ORDERED: diazePAM 5 MG TABLET PO SCH (06:00)
[2020-08-24] MEDS: hydrOXYzine PAMOATE 25 MG CAPSULE (FP) PO SCH ×2 (06:23→08:10)
[2020-08-24] MEDS ORDERED: METHADONE HCL 10 MG TABLET (FOR DETOX USE ONLY) ONE (08:34)
[2020-08-24] MEDS ORDERED: METHADONE HCL 5 MG TABLET (FOR DETOX USE ONLY) ONE (08:34)
[2020-08-24] MEDS: NICOTINE 7 MG/24 HOURS TOPICAL PATCH TD SCH (09:20)
[2020-08-24 09:21] VITALS: BP 105/70; PULSE 108; TEMP 96.9
[2020-08-24] MEDS: PRENATAL VITAMINS W/ FOLIC ACID TABLET (FP) PO SCH (09:21)
[2020-08-24] MEDS ORDERED: METHADONE (DETOX) 10 MG, METHADONE (DETOX) 5 MG PO ONE (10:00)
[2020-08-25] MEDS ORDERED: diazePAM 5 MG TABLET PO ONE (06:00)
[2020-08-25] MEDS ORDERED: METHADONE HCL 10 MG TABLET (FOR DETOX USE ONLY) PO ONE (10:00)
[2020-08-26] MEDS ORDERED: METHADONE HCL 5 MG TABLET (FOR DETOX USE ONLY) PO ONE (06:00)
== END 2020-08-24 10:29 | disposition left against medical advice (07) | DRG 770 ==
LOC: YASAS 09:08 → Y3N 12:32
PROVIDERS: ADMIT Allergy & Immunology; ATTEND Allergy & Immunology
PROC: HZ2ZZZZ Detoxification Services for Substance Abuse Treatment (ICD-10-PCS; principal; 2020-08-21)
DX: F11.23 Opioid dependence with withdrawal (principal); F13.230 Sedative, hypnotic or anxiolytic dependence with withdrawal, uncomplicated; F17.213 Nicotine dependence, cigarettes, with withdrawal; F19.24 Other psychoactive substance dependence with psychoactive substance-induced mood disorder; F19.282 Other psychoactive substance dependence with psychoactive substance-induced sleep disorder; Z21 Asymptomatic human immunodeficiency virus [HIV] infection status; R74.01 Elevation of levels of liver transaminase levels; R00.0 Tachycardia, unspecified; Z86.69 Personal history of other diseases of the nervous system and sense organs; Z91.018 Allergy to other foods; Z88.8 Allergy status to other drugs, medicaments and biological substances
CPT/HCPCS: 36415; 80053; 85027; 86780; 87389; C9803; J0735; Q0162; U0003

== ENCOUNTER 2021-06-20 14:21 | Inpatient (IN) | payer OTHER ==
[2021-06-20] MEDS ORDERED: BISMUTH SUBSALICYLATE 524 MG/30 ML PO PRN (15:15)
[2021-06-20] MEDS ORDERED: ACETAMINOPHEN 325 MG TABLET (FP) PO PRN ×2 (15:15)
[2021-06-20] MEDS ORDERED: MAG HYDROX/AL HYDROX/SIMETH 30 ML UNIT-DOSE CUP PO PRN (15:15)
[2021-06-20] MEDS ORDERED: MAGNESIUM CITRATE 300 ML BOTTLE PO PRN (15:15)
[2021-06-20] MEDS ORDERED: ONDANSETRON *ODT* 4 MG TABLET SL PRN (15:15)
[2021-06-20] MEDS ORDERED: NICOTINE 10 MG CARTRIDGE (INHALER) IH PRN (15:15)
[2021-06-20] MEDS ORDERED: P-EPHED 60MG/TRIPROLIDI 2.5MG TABLET PO PRN (15:15)
[2021-06-20] MEDS ORDERED: NICOTINE POLACRILEX 4 MG GUM BUC PRN (15:15)
[2021-06-20] MEDS ORDERED: IBUPROFEN 400 MG TABLET (FP) PO PRN (15:15)
[2021-06-20] MEDS ORDERED: MAGNESIUM HYDROX 2400MG/30ML ORAL SUSPENSION 30 ML CUP PO PRN (15:15)
[2021-06-20] MEDS ORDERED: MENTHOL/PHENOL 1 EACH UD MM PRN (15:15)
[2021-06-20] MEDS ORDERED: METHOCARBAMOL 500 MG TABLET PO PRN (15:15)
[2021-06-20 15:42] VITALS: BMI 25.7
[2021-06-20] MEDS ORDERED: methaDONE HCL 10 MG TABLET (FOR DETOX USE ONLY) PO ONE (15:45)
[2021-06-20] MEDS: NICOTINE 21 MG/24 HOURS TOPICAL PATCH TD SCH (18:03)
[2021-06-20] MEDS: hydrOXYzine PAMOATE 25 MG CAPSULE (FP) PO SCH ×2 (18:10→22:20)
[2021-06-20] MEDS: FAMOTIDINE 20 MG TABLET PO SCH (22:17)
[2021-06-20] MEDS: diazePAM 5 MG TABLET PO PRN (22:17)
[2021-06-20] MEDS: cloNIDine HCL 0.1 MG TABLET PO PRN (22:17)
[2021-06-20] MEDS: AMOXICILLIN 500 MG CAPSULE (FP) PO SCH (22:17)
[2021-06-20] MEDS: MELATONIN 5 MG TABLETS PO SCH (22:18)
[2021-06-20] MEDS: THIAMINE HCL 100 MG TABLET (FP) PO SCH (22:18)
[2021-06-21] MEDS: diazePAM 5 MG TABLET PO PRN ×3 (05:28→18:29)
[2021-06-21] MEDS: hydrOXYzine PAMOATE 25 MG CAPSULE (FP) PO SCH ×5 (05:29→22:57)
[2021-06-21] MEDS ORDERED: methaDONE HCL 10 MG TABLET (FOR DETOX USE ONLY) ONE (08:51)
[2021-06-21] MEDS: FAMOTIDINE 20 MG TABLET PO SCH ×2 (10:22→22:56)
[2021-06-21] MEDS: AMOXICILLIN 500 MG CAPSULE (FP) PO SCH ×2 (10:22→22:56)
[2021-06-21] MEDS: NICOTINE 21 MG/24 HOURS TOPICAL PATCH TD SCH (10:24)
[2021-06-21] MEDS: cloNIDine HCL 0.1 MG TABLET PO PRN ×2 (10:25→17:32)
[2021-06-21] MEDS: PRENATAL VITAMINS W/ FOLIC ACID TABLET (FP) PO SCH (10:25)
[2021-06-21 11:04] LABS: CALCIUM 8.9 mg/dL (8.5-10.1)
[2021-06-21 11:05] LABS: ALBUMIN 3.3 g/dl (3.4-5.0); BLOOD UREA NITROGEN 11.5 mg/dL (7-18); HEMATOCRIT 33.9 % (35.4-49); HEMOGLOBIN 10.7 GM/dL (11.7-16.9); MCH 21.3 pg (25.7-33.7); MCHC 31.5 g/dl (32.0-35.9); MEAN CELL VOLUME 67.5 fl (80-96); MEAN PLT VOLUME 9.1 fl (7.5-11.1); PLATELET COUNT 247 10^3/uL (134-434); RBC 5.02 M/mm3 (4.00-5.60); RDW 17.4 % (11.9-15.9); WHITE BLOOD COUNT 9.1 K/mm3 (4.0-10.0)
[2021-06-21 11:08] LABS: CREATININE 0.7 mg/dL (0.55-1.3)
[2021-06-21 11:10] LABS: BILIRUBIN,TOTAL 0.4 mg/dL (0.2-1); TOT PROT 8.1 g/dl (6.4-8.2)
[2021-06-21] MEDS: MELATONIN 5 MG TABLETS PO SCH (22:56)
[2021-06-21] MEDS: QUEtiapine FUMARATE 50 MG TABLET PO SCH (22:56)
[2021-06-21] MEDS: THIAMINE HCL 100 MG TABLET (FP) PO SCH (22:57)
[2021-06-22] MEDS: hydrOXYzine PAMOATE 25 MG CAPSULE (FP) PO SCH ×6 (05:37→23:19)
[2021-06-22] MEDS ORDERED: methaDONE HCL 10 MG TABLET (FOR DETOX USE ONLY) PO ONE (10:00)
[2021-06-22] MEDS: ESCITALOPRAM OXALATE 10 MG TABLET PO SCH (10:58)
[2021-06-22] MEDS: FAMOTIDINE 20 MG TABLET PO SCH ×2 (10:58→22:30)
[2021-06-22] MEDS: NICOTINE 21 MG/24 HOURS TOPICAL PATCH TD SCH (10:58)
[2021-06-22] MEDS: PRENATAL VITAMINS W/ FOLIC ACID TABLET (FP) PO SCH (10:59)
[2021-06-22] MEDS: AMOXICILLIN 500 MG CAPSULE (FP) PO SCH ×2 (10:59→22:29)
[2021-06-22] MEDS: diazePAM 5 MG TABLET PO PRN ×2 (11:00→22:30)
[2021-06-22] MEDS: cloNIDine HCL 0.1 MG TABLET PO PRN ×2 (14:46→22:30)
[2021-06-22] MEDS: QUEtiapine FUMARATE 50 MG TABLET PO SCH (22:26)
[2021-06-22] MEDS: THIAMINE HCL 100 MG TABLET (FP) PO SCH (22:29)
[2021-06-22] MEDS: MELATONIN 5 MG TABLETS PO SCH (22:32)
[2021-06-22 23:15] VITALS: TEMP 98
[2021-06-23] MEDS ORDERED: diazePAM 5 MG TABLET PO PRN (00:01)
[2021-06-23] MEDS: hydrOXYzine PAMOATE 25 MG CAPSULE (FP) PO SCH ×2 (06:43→10:13)
[2021-06-23] MEDS ORDERED: methaDONE HCL 10 MG TABLET (FOR DETOX USE ONLY) ONE (09:15)
[2021-06-23] MEDS: FAMOTIDINE 20 MG TABLET PO SCH (10:09)
[2021-06-23] MEDS: NICOTINE 21 MG/24 HOURS TOPICAL PATCH TD SCH (10:09)
[2021-06-23] MEDS: ESCITALOPRAM OXALATE 10 MG TABLET PO SCH (10:12)
[2021-06-23] MEDS: PRENATAL VITAMINS W/ FOLIC ACID TABLET (FP) PO SCH (10:13)
[2021-06-23] MEDS: AMOXICILLIN 500 MG CAPSULE (FP) PO SCH (10:13)
[2021-06-23 10:51] VITALS: BP 112/58; PULSE 98
[2021-06-24] MEDS ORDERED: methaDONE HCL 10 MG TABLET (FOR DETOX USE ONLY) PO ONE (10:00)
== END 2021-06-23 12:59 | disposition left against medical advice (07) | DRG 770 ==
LOC: YASAS 14:21 → Y6N 17:02
PROVIDERS: ADMIT Allergy & Immunology; ATTEND Allergy & Immunology
PROC: HZ2ZZZZ Detoxification Services for Substance Abuse Treatment (ICD-10-PCS; principal; 2021-06-20)
DX: F11.23 Opioid dependence with withdrawal (principal); F14.20 Cocaine dependence, uncomplicated; F12.20 Cannabis dependence, uncomplicated; F17.210 Nicotine dependence, cigarettes, uncomplicated; F19.282 Other psychoactive substance dependence with psychoactive substance-induced sleep disorder; F19.24 Other psychoactive substance dependence with psychoactive substance-induced mood disorder; F41.8 Other specified anxiety disorders; F90.9 Attention-deficit hyperactivity disorder, unspecified type; K04.7 Periapical abscess without sinus; R63.4 Abnormal weight loss; Z68.25 Body mass index [BMI] 25.0-25.9, adult; Z86.59 Personal history of other mental and behavioral disorders; Z88.8 Allergy status to other drugs, medicaments and biological substances
CPT/HCPCS: 36415; 80053; 85027; 86780; C9803; J0735; Q0162; U0003; U0005

== ENCOUNTER 2021-09-16 15:59 | Inpatient (IN) | payer OTHER ==
[2021-09-16 19:37] VITALS: BMI 30.5
[2021-09-16] MEDS ORDERED: MAG HYDROX/AL HYDROX/SIMETH 30 ML UNIT-DOSE CUP PO PRN (20:12)
[2021-09-16] MEDS ORDERED: ONDANSETRON *ODT* 4 MG TABLET SL PRN (20:12)
[2021-09-16] MEDS ORDERED: MAGNESIUM HYDROX 2400MG/30ML ORAL SUSPENSION 30 ML CUP PO PRN (20:12)
[2021-09-16] MEDS ORDERED: IBUPROFEN 400 MG TABLET (FP) PO PRN (20:12)
[2021-09-16] MEDS ORDERED: ACETAMINOPHEN 325 MG TABLET (FP) PO PRN ×2 (20:12)
[2021-09-16] MEDS ORDERED: METHOCARBAMOL 500 MG TABLET PO PRN (20:12)
[2021-09-16] MEDS ORDERED: MENTHOL/PHENOL 1 EACH UD MM PRN (20:12)
[2021-09-16] MEDS ORDERED: hydrOXYzine PAMOATE 25 MG CAPSULE (FP) PO PRN (20:12)
[2021-09-16] MEDS ORDERED: BISMUTH SUBSALICYLATE 524 MG/30 ML PO PRN (20:12)
[2021-09-16] MEDS ORDERED: MAGNESIUM CITRATE 300 ML BOTTLE PO PRN (20:12)
[2021-09-16] MEDS ORDERED: DICYCLOMINE HCL 10 MG CAPSULE PO PRN (20:12)
[2021-09-16] MEDS ORDERED: THIAMINE HCL 100 MG TABLET (FP) PO SCH (22:00)
[2021-09-16] MEDS ORDERED: MELATONIN 5 MG TABLETS PO SCH (22:00)
[2021-09-16] MEDS ORDERED: methaDONE HCL 10 MG TABLET (FOR DETOX USE ONLY) PO ONE (22:43)
[2021-09-16] MEDS ORDERED: cloNIDine HCL 0.1 MG TABLET PO PRN (22:43)
[2021-09-17] MEDS ORDERED: cloNIDine HCL 0.1 MG TABLET PO PRN (02:51)
[2021-09-17] MEDS ORDERED: methaDONE HCL 10 MG TABLET (FOR DETOX USE ONLY) PO ONE (02:51)
[2021-09-17] MEDS ORDERED: diazePAM 5 MG TABLET ONE ×3 (03:12→09:39)
[2021-09-17] MEDS: diazePAM 5 MG TABLET PO PRN ×2 (03:14→10:01)
[2021-09-17] MEDS: diazePAM 5 MG TABLET PO SCH ×3 (03:15→11:40)
[2021-09-17] MEDS ORDERED: ONDANSETRON *ODT* 4 MG TABLET SL PRN (09:36)
[2021-09-17] MEDS ORDERED: METHOCARBAMOL 500 MG TABLET ONE (09:39)
[2021-09-17] MEDS ORDERED: methaDONE HCL 10 MG TABLET (FOR DETOX USE ONLY) ONE (09:39)
[2021-09-17] MEDS ORDERED: PRENATAL VITAMINS W/ FOLIC ACID TABLET (FP) PO SCH (10:00)
[2021-09-17] MEDS ORDERED: P-EPHED 60MG/TRIPROLIDI 2.5MG TABLET PO PRN (17:13)
[2021-09-17 18:58] VITALS: BP 144/78; PULSE 73; TEMP 97.7
[2021-09-18] MEDS ORDERED: diazePAM 5 MG TABLET PO SCH (06:00)
[2021-09-18] MEDS ORDERED: methaDONE HCL 10 MG TABLET (FOR DETOX USE ONLY) PO ONE (10:00)
[2021-09-19] MEDS ORDERED: diazePAM 5 MG TABLET PO SCH (06:00)
[2021-09-19] MEDS ORDERED: methaDONE HCL 10 MG TABLET (FOR DETOX USE ONLY) PO ONE (10:00)
[2021-09-20] MEDS ORDERED: diazePAM 5 MG TABLET PO ONE (06:00)
[2021-09-20] MEDS ORDERED: methaDONE HCL 10 MG TABLET (FOR DETOX USE ONLY) PO ONE (10:00)
[2021-09-21] MEDS ORDERED: methaDONE HCL 10 MG TABLET (FOR DETOX USE ONLY) PO ONE (10:00)
== END 2021-09-17 17:25 | disposition left against medical advice (07) | DRG 770 ==
LOC: YASAS 15:59 → Y6N 09-17 11:36
PROVIDERS: ADMIT Allergy & Immunology; ATTEND Allergy & Immunology
PROC: HZ2ZZZZ Detoxification Services for Substance Abuse Treatment (ICD-10-PCS; principal; 2021-09-17)
DX: F11.23 Opioid dependence with withdrawal (principal); F13.20 Sedative, hypnotic or anxiolytic dependence, uncomplicated; F12.20 Cannabis dependence, uncomplicated; F17.210 Nicotine dependence, cigarettes, uncomplicated; F32.A Depression, unspecified; M54.50 Low back pain, unspecified; G89.29 Other chronic pain; W07.XXXA Fall from chair, initial encounter; Y92.238 Other place in hospital as the place of occurrence of the external cause; Z88.8 Allergy status to other drugs, medicaments and biological substances
CPT/HCPCS: C9803; Q0162; U0003; U0005

== ENCOUNTER 2022-02-24 13:04 | Inpatient (IN) | payer OTHER ==
[2022-02-24 13:45] VITALS: BMI 30.1
[2022-02-24] MEDS ORDERED: MAG HYDROX/AL HYDROX/SIMETH 30 ML UNIT-DOSE CUP PO PRN (14:27)
[2022-02-24] MEDS ORDERED: BISMUTH SUBSALICYLATE 262 MG/15 ML BTL PO PRN (14:27)
[2022-02-24] MEDS ORDERED: NICOTINE 10 MG CARTRIDGE (INHALER) IH PRN (14:27)
[2022-02-24] MEDS ORDERED: ACETAMINOPHEN 325 MG TABLET (FP) PO PRN ×2 (14:27)
[2022-02-24] MEDS ORDERED: METHOCARBAMOL 500 MG TABLET PO PRN (14:27)
[2022-02-24] MEDS ORDERED: IBUPROFEN 400 MG TABLET (FP) PO PRN (14:27)
[2022-02-24] MEDS ORDERED: methaDONE HCL 10 MG TABLET (FOR DETOX USE ONLY) PO ONE ×2 (14:27→19:00)
[2022-02-24] MEDS ORDERED: diazePAM 5 MG TABLET PO PRN (14:27)
[2022-02-24] MEDS ORDERED: IBUPROFEN 600 MG TABLET (FP) PO PRN (14:27)
[2022-02-24] MEDS ORDERED: NALOXONE HCL (KLOXXADO) 8 MG SPRAY NS PRN (14:27)
[2022-02-24] MEDS ORDERED: MAGNESIUM HYDROX 2400MG/30ML ORAL SUSPENSION 30 ML CUP PO PRN (14:27)
[2022-02-24] MEDS ORDERED: cloNIDine HCL 0.1 MG TABLET PO PRN (14:27)
[2022-02-24] MEDS ORDERED: DICYCLOMINE HCL 10 MG CAPSULE PO PRN (14:27)
[2022-02-24] MEDS ORDERED: ONDANSETRON *ODT* 4 MG TABLET SL PRN (14:27)
[2022-02-24] MEDS ORDERED: BENZOCAINE/MENTHOL (CHLORASEPTIC ) LOZENGE MM PRN (14:27)
[2022-02-24] MEDS ORDERED: MAGNESIUM CITRATE 300 ML BOTTLE PO PRN (14:27)
[2022-02-24] MEDS ORDERED: LOPERAMIDE HCL 2 MG CAPSULE PO PRN (14:27)
[2022-02-24] MEDS: diazePAM 5 MG TABLET PO SCH ×4 (19:06→22:43)
[2022-02-24] MEDS: hydrOXYzine PAMOATE 25 MG CAPSULE (FP) PO SCH ×2 (19:07→22:43)
[2022-02-24] MEDS ORDERED: MELATONIN 5 MG TABLETS PO SCH (22:00)
[2022-02-24] MEDS ORDERED: THIAMINE HCL 100 MG TABLET (FP) PO SCH (22:00)
[2022-02-25] MEDS: hydrOXYzine PAMOATE 25 MG CAPSULE (FP) PO SCH ×2 (05:37→09:59)
[2022-02-25] MEDS ORDERED: diazePAM 5 MG TABLET PO SCH (06:00)
[2022-02-25 09:03] VITALS: BP 116/61; PULSE 61; TEMP 99.3
[2022-02-25] MEDS ORDERED: methaDONE HCL 10 MG TABLET (FOR DETOX USE ONLY) ONE (09:48)
[2022-02-25] MEDS ORDERED: PRENATAL VITAMINS W/ FOLIC ACID TABLET (FP) PO SCH (10:00)
[2022-02-26] MEDS ORDERED: diazePAM 5 MG TABLET PO SCH (06:00)
[2022-02-26] MEDS ORDERED: methaDONE HCL 10 MG TABLET (FOR DETOX USE ONLY) PO ONE (10:00)
[2022-02-27] MEDS ORDERED: diazePAM 5 MG TABLET PO ONE (06:00)
[2022-02-28] MEDS ORDERED: methaDONE HCL 10 MG TABLET (FOR DETOX USE ONLY) PO ONE (10:00)
== END 2022-02-25 11:38 | disposition left against medical advice (07) | DRG 770 ==
LOC: YASAS 13:04 → Y3N 17:58
PROVIDERS: ADMIT Allergy & Immunology; ATTEND Surgery
PROC: HZ2ZZZZ Detoxification Services for Substance Abuse Treatment (ICD-10-PCS; principal; 2022-02-24)
DX: F11.23 Opioid dependence with withdrawal (principal); F13.20 Sedative, hypnotic or anxiolytic dependence, uncomplicated; F14.20 Cocaine dependence, uncomplicated; F12.20 Cannabis dependence, uncomplicated; F17.210 Nicotine dependence, cigarettes, uncomplicated; Z28.310 Unvaccinated for COVID-19
CPT/HCPCS: C9803-CS; U0003; U0005

== ENCOUNTER 2022-11-30 13:01 | Inpatient (IN) | payer OTHER ==
[2022-11-30 14:17] VITALS: BMI 26.6
[2022-11-30] MEDS ORDERED: DICYCLOMINE HCL 10 MG CAPSULE PO PRN (16:24)
[2022-11-30] MEDS ORDERED: BISMUTH SUBSALICYLATE 524 MG/30 ML PO PRN (16:24)
[2022-11-30] MEDS ORDERED: ACETAMINOPHEN 325 MG TABLET (FP) PO PRN (16:24)
[2022-11-30] MEDS ORDERED: METHOCARBAMOL 500 MG TABLET PO PRN (16:24)
[2022-11-30] MEDS ORDERED: NALOXONE HCL 0.4 MG/ML VIAL IM PRN (16:24)
[2022-11-30] MEDS ORDERED: LOPERAMIDE HCL 2 MG CAPSULE PO PRN (16:24)
[2022-11-30] MEDS ORDERED: NICOTINE 10 MG CARTRIDGE (INHALER) IH PRN (16:24)
[2022-11-30] MEDS ORDERED: NALOXONE HCL (KLOXXADO) 8 MG SPRAY NS PRN (16:24)
[2022-11-30] MEDS ORDERED: IBUPROFEN 600 MG TABLET (FP) PO PRN (16:24)
[2022-11-30] MEDS ORDERED: MAG HYDROX/AL HYDROX/SIMETH 30 ML UNIT-DOSE CUP PO PRN (16:24)
[2022-11-30] MEDS ORDERED: POLYETHYLENE GLYCOL (HEALTHYLAX) 3350 17 GM PACKET PO PRN (16:24)
[2022-11-30] MEDS ORDERED: IBUPROFEN 400 MG TABLET (FP) PO PRN (16:24)
[2022-11-30] MEDS ORDERED: BENZONATATE 200 MG CAPSULE PO PRN (16:24)
[2022-11-30] MEDS ORDERED: guaiFENesin 600 MG TABLET.ER (FP) PO PRN (16:24)
[2022-11-30] MEDS ORDERED: MAGNESIUM HYDROX 2400MG/30ML ORAL SUSPENSION 30 ML CUP PO PRN (16:24)
[2022-11-30] MEDS ORDERED: BENZOCAINE/MENTHOL (CHLORASEPTIC ) LOZENGE MM PRN (16:24)
[2022-11-30] MEDS ORDERED: hydrOXYzine PAMOATE 25 MG CAPSULE (FP) PO PRN (16:24)
[2022-11-30] MEDS: NICOTINE 14 MG/24 HOURS TOPICAL PATCH TD SCH (18:55)
[2022-11-30] MEDS: diazePAM 5 MG TABLET PO PRN (18:59)
[2022-11-30] MEDS: PRENATAL VITAMINS W/ FOLIC ACID TABLET (FP) PO SCH (19:02)
[2022-11-30] MEDS ORDERED: THIAMINE HCL 100 MG TABLET (FP) PO SCH (22:00)
[2022-11-30] MEDS ORDERED: MELATONIN 5 MG TABLETS PO SCH (22:00)
[2022-11-30] MEDS: ONDANSETRON *ODT* 4 MG TABLET SL PRN (22:58)
[2022-12-01] MEDS: diazePAM 5 MG TABLET PO PRN (04:21)
[2022-12-01] MEDS: ONDANSETRON *ODT* 4 MG TABLET SL PRN (06:18)
[2022-12-01] MEDS ORDERED: cloNIDine HCL 0.1 MG TABLET PO PRN (08:59)
[2022-12-01] MEDS ORDERED: diazePAM 5 MG TABLET PO PRN (08:59)
[2022-12-01] MEDS ORDERED: methaDONE HCL 10 MG TABLET (FOR DETOX USE ONLY) PO ONE (09:15)
[2022-12-01 09:20] VITALS: BP 119/67; PULSE 73; RESP 16; TEMP 97.4
[2022-12-01] MEDS: PRENATAL VITAMINS W/ FOLIC ACID TABLET (FP) PO SCH (09:45)
[2022-12-01] MEDS ORDERED: diazePAM 5 MG TABLET PO SCH (11:00)
[2022-12-01] MEDS: NICOTINE 14 MG/24 HOURS TOPICAL PATCH TD SCH (11:11)
[2022-12-03] MEDS ORDERED: diazePAM 5 MG TABLET PO SCH (06:00)
[2022-12-03] MEDS ORDERED: methaDONE HCL 10 MG TABLET (FOR DETOX USE ONLY) PO ONE (10:00)
[2022-12-04] MEDS ORDERED: diazePAM 5 MG TABLET PO SCH (06:00)
[2022-12-05] MEDS ORDERED: diazePAM 5 MG TABLET PO ONE (06:00)
[2022-12-05] MEDS ORDERED: methaDONE HCL 10 MG TABLET (FOR DETOX USE ONLY) PO ONE (10:00)
== END 2022-12-01 12:34 | disposition left against medical advice (07) | DRG 770 ==
LOC: YASAS 13:01 → Y3N 18:31
PROVIDERS: ADMIT Allergy & Immunology; ATTEND Surgery
PROC: HZ2ZZZZ Detoxification Services for Substance Abuse Treatment (ICD-10-PCS; principal; 2022-11-30)
DX: F11.23 Opioid dependence with withdrawal (principal); F13.20 Sedative, hypnotic or anxiolytic dependence, uncomplicated; F12.20 Cannabis dependence, uncomplicated; F17.210 Nicotine dependence, cigarettes, uncomplicated; F41.9 Anxiety disorder, unspecified; U07.1 COVID-19; M25.512 Pain in left shoulder; W19.XXXA Unspecified fall, initial encounter; Y92.230 Patient room in hospital as the place of occurrence of the external cause; Z28.310 Unvaccinated for COVID-19; Z28.9 Immunization not carried out for unspecified reason; Z88.8 Allergy status to other drugs, medicaments and biological substances
CPT/HCPCS: C9803-CS; Q0162; U0003; U0005